=== PATIENT | male | born 1950 | race Caucasian/White ===

== ENCOUNTER 2017-01-16 18:46 | Inpatient (IN) ==
[2017-01-16] MEDS ORDERED: Ipratropium/Albuterol Neb 3 ML IH ONE (18:51)
[2017-01-16] MEDS ORDERED: methylPREDNISolone 125 MG/2 ML VIAL IVP ONE (18:51)
[2017-01-16] MEDS ORDERED: 0.9 % Sodium Chloride 1,000 ML IVC ONE (18:59)
[2017-01-16] MEDS ORDERED: Acetaminophen 650 MG RECTAL SUPP RC ONE (19:11)
--- NOTE | 2017-01-16 19:12 | Emergency Department Note ---
Disposition Clinical Impression: Leukocytosis, Elevated troponin, Hypomagnesemia Pneumonia Qualifiers: Pneumonia type: due to unspecified organism Laterality: bilateral Lung location : lower lobe of lung Qualified Code(s): J18.9 - Pneumonia, unspecified organism Sepsis Qualifiers: Sepsis type: sepsis due to unspecified organism Qualified Code(s): A41.9 - Sepsis, unspecified organism Disposition: Admitted As Inpatient Condition: Serious Time of Disposition: 20:26 General Adult HPI - General Chief complaint: ED Shortness of Breath/Dyspnea Stated complaint: AMS / ANDERSON Time Seen by Provider: 01/16/17 18:51 Source: EMS Mode of arrival: EMS Limitations: no limitations Nursing Notes Reviewed: Yes Vital Signs Reviewed: Yes - History of Present Illness HPI Narrative: Patient brought in by EMS. He was found down at home by the oxygen delivery service. Patient is unaware of how he fell or why he fell. He just rumors being on the floor. EMS advised that his initial oxygen saturation was 74% on 4 L nasal cannula. They placed him on a nonrebreather and this increased his oxygen saturation to the low 90s. Pain Scale: 0 - Related Data Home Medications Medication Instructions Recorded Confirmed Acetaminophen [Tylenol] 1,000 mg PO TID PRN 01/16/17 01/16/17 Albuterol Sulfate [Albuterol 2 puff IH QID PRN 01/16/17 01/16/17 Inhaler] Aloe Vera/Collagen [Aloe [place] 1 appl TP DAILY 01/16/17 01/16/17 Cleansing Foam] Ascorbate Calcium [Vitamin C] 500 mg PO DAILY 01/16/17 01/16/17 Carboxymethylcellulose Sodium 1 drop BOTH EYES QID 01/16/17 01/16/17 [Refresh Liquigel] Docusate [Colace] 100 mg PO BID 01/16/17 01/16/17 Ferrous Sulfate 325 mg PO BIDWM 01/16/17 01/16/17 Furosemide [Lasix] 40 mg PO DAILY 01/16/17 01/16/17 Gabapentin [Neurontin] 600 mg PO TID 01/16/17 01/16/17 L. Acidophilus/Pectin, Tulsita 1 each PO TIDAC 01/16/17 01/16/17 [Acidophilus Probiotic Capsule] Metoprolol [Lopressor] 50 mg PO BID 01/16/17 01/16/17 Multivitamin [Multi-Day Vitamins] 1 each PO DAILY 01/16/17 01/16/17 Ranitidine HCl [Zantac] 150 mg PO BID 01/16/17 01/16/17 Rivaroxaban [Xarelto] 20 mg PO DAILY 01/16/17 01/16/17 Simvastatin [Zocor] 20 mg PO HS 01/16/17 01/16/17 Sod Chloride/B-6/Zinc Acet/Ca 3 - 5 spray IR DAILY 01/16/17 01/16/17 [Wound Cleanser] Vit C/E/Zn/Coppr/Lutein/Zeaxan 1 cap PO BID 01/16/17 01/16/17 [Preservision Areds 2 Softgel] Allergies Allergy/AdvReac Type Severity Reaction Status Date / Time latex AdvReac See Verified 01/16/17 21:16 Comments Limitations: ROS unobtainable due to patients medical condition Past Medical History - Past Medical History Medical history: Reports: atrial fibrillation, COPD, hyperlipidemia, hypertension, myocardial infarction, other Psychiatric history: Reports: no psych history - Social History Smoking Status: Current every day smoker Smokeless Tobacco Status: No Alcohol use: Reports: none Drug use: Reports: none Physical Exam - General Limitations: altered mental status General appearance: alert, lethargic, in distress (Respiratory. Quickly falls asleep during exam.) - Head Head exam: atraumatic, normocephalic, normal inspection - Eye Eye exam: Present: normal appearance, PERRL, EOMI. Absent: scleral icterus - ENT ENT exam: normal exam, normal oropharynx, mucous membranes moist - Neck Neck exam: Present: normal inspection, full ROM, trachea midline. Absent: tenderness, meningismus, lymphadenopathy - Chest Chest inspection: Present: normal inspection, symmetric chest wall rise. Absent : tenderness - Respiratory Respiratory exam: Present: respiratory distress, wheezes (Expiratory wheezing throughout.) - Cardiovascular Cardiovascular exam: Present: normal rhythm, tachycardia, normal heart sounds - Abdominal Exam Abdominal exam: Present: soft, Non-Tender, other (Colostomy bag intact. Colostomy is pink appearing. Does not appear to have any signs of infection. There is stool in the colostomy bag as well as air. There is a well-healing scar to the suprapubic area. No discharge from this area. The area is not reddened.). Absent: tenderness, distention, guarding, rebound, rigidity - Extremities Exam Extremities exam: Present: normal inspection, full ROM, normal capillary refill. Absent: tenderness, pedal edema - Back Exam Back exam: Present: normal inspection, full ROM. Absent: tenderness - Neurological Exam Neurological exam: Present: alert, other (Confused. Quickly falls asleep while questioning.) - Skin Skin exam: Present: warm, dry, intact, other (Blanching rash across whole body. Appears to be urticaria.). Absent: cyanosis Course Course Narrative: Male patient presenting to the emergency department by EMS for a fall at home and altered level of consciousness. He was discharged today from [facility] today. EMS reports an initial oxygen saturation in the 70s on 4 L via nasal cannula. They placed him on a nonrebreather and this brought him into the low 90s. The patient does have a colostomy bag. He also has a surgical incision site on his lower abdomen that is suprapubic in nature. He was seen at [facility] and treated for a abdominal fistula and possible abdominal infection. The patient is unaware of how he fell at home. He just remembers screaming while he was on the floor. He is maintaining his airway at this time however his oxygen saturation decreases to the high 80s on 4 L via nasal cannula. He does have wheezing and rales throughout. Given him a breathing treatment. We will place the patient on BiPAP. He is tachycardic. We are giving him a fluid bolus at this time however we will withhold the 30 mL/kg due to patient's possibility of CHF. We are obtaining a BNP at this time. On his chest x-ray does appear as if he has some vascular congestion. He also has a bilateral lower lobe pneumonia. We are beginning treatment with triple antibiotic therapy at this time. Labs are still pending. He is mentating and talking to us however does appear to be confused and quickly falls asleep during conversation. We will admit patient for bilateral pneumonia. - Reevaluation(s) Reevaluation #1: Patient is mentating better now that he is on BiPAP however he is still confused. His troponin is elevated. His white count is elevated. We are replacing his magnesium at this time. CT head and neck are still pending. Time: 20:32 Reevaluation #2: CT of head and neck are normal. We will place patient on triple antibiotic therapy for his hospital-acquired pneumonia. We will admit him to the hospital on BiPAP and treat him for pneumonia and sepsis. - Consultations Consultation #1: Dr. Mtz accepted patient in stable condition. Time: 20:32 Vital Signs Temperature 100.6 F H 01/16/17 18:51 Pulse Rate 117 01/16/17 18:51 Respiratory Rate 18 01/16/17 18:51 Blood Pressure 121/67 01/16/17 18:51 O2 Sat by Pulse Oximetry 89 01/16/17 18:51 Temperature 99.2 F 01/16/17 22:35 Pulse Rate 89 01/17/17 00:00 Respiratory Rate 13 01/17/17 00:00 Blood Pressure 119/58 01/17/17 00:00 O2 Sat by Pulse Oximetry 97 01/17/17 00:00 Oxygen Delivery Oxygen Delivery Non Rebreather Mask Medical Decision Making - MDM Narrative Medical decision making narrative: Patient's BNP is elevated and his chest x-ray does have appearance of a possible edema. We will withhold full fluid bolus due to this. - Medical Records Medical records reviewed: Yes I reviewed the patient's medical records. - Lab Data Lab results reviewed: Yes I reviewed the patient's lab results. Result diagrams: 01/16/17 19:27 01/16/17 19:27 Lab Results 01/16/17 01/16/17 01/16/17 Range/Units 19:02 19:27 19:27 WBC 18.2 H (4.3-11.1) K/mcL RBC 4.68 (4.19-5.50) M/mcL Hgb 12.8 L D (12.9-16.9) g/dL Hct 40.5 (37.5-50.1) % MCV 86.5 (83.0-100.0) fL MCH 27.4 L (28.0-33.3) pg MCHC 31.6 (31.6-35.5) g/dL RDW 14.7 H (11.5-14.5) % Plt Count 202 (140-400) K/mcL MPV 12.0 (9.4-12.4) fL Immature Gran % 1.5 (0-4) % Seg Neutrophils % 81.1 % Lymphocytes % 6.9 % Monocytes % 7.9 % Eosinophils % 2.4 % Basophils % 0.2 % Neutrophils # 14.8 H (1.6-8.9) K/mcL Lymphocytes # 1.3 (0.6-4.6) K/mcL Monocytes # 1.5 H (0.0-1.3) K/mcL Eosinophils # 0.4 (0.0-0.6) K/mcL Basophils # 0.0 (0.0-0.2) K/mcL VBG pH (7.32-7.42) pH Units VBG pCO2 (41-51) mmHg VBG pO2 (25-40) mmHg VBG HCO3 (21-27) mEq/L Sodium 141 (136-145) mEq/L Potassium 3.8 (3.5-4.5) mEq/L Chloride 100 (98-109) mEq/L Carbon Dioxide 27 (19-29) mEq/L BUN 9 (8-26) mg/dL Creatinine 1.00 (0.72-1.25) mg/dL Est GFR ( Amer) > 60 (> 60) Est GFR (Non-Af Amer) > 60 (> 60) BUN/Creatinine Ratio 9 (6-26) Glucose 127 H (70-99) mg/dL POC Glucose 130 H (58-89) Calculated Osmolality 292 (280-300) Lactic Acid (0.5-2.2) mmol/L Calcium 8.8 (8.6-10.8) mg/dL Phosphorus 1.7 L (2.3-4.7) mg/dL Magnesium 1.1 L (1.6-2.6) mg/dL Total Bilirubin 0.5 (0.2-1.2) mg/dL Direct Bilirubin 0.3 (0.0-0.5) mg/dL Indirect Bilirubin 0.2 (0.0-1.2) mg/dL AST 9 (5-34) Units/L ALT 13 (0-55) Units/L Alkaline Phosphatase 87 (38-126) Units/L Creatine Kinase 14 L (30-200) Units/L Troponin I (0-0.03) ng/mL B-Natriuretic Peptide (0-100) pg/mL Serum Total Protein 6.6 (6.0-8.3) g/dL Albumin 3.0 L (3.5-5.0) g/dL Globulin 3.6 H (2.4-3.5) g/dL Albumin/Globulin Ratio 0.8 L (1.1-2.2) Urine Color (Yellow) Urine Clarity (Clear) Urine pH (5.0-8.0) pH Units Ur Specific Bloom[place] (1.010-1.025) Urine Protein (Neg-Trace) mg/dL Urine Glucose (UA) (Normal) mg/dL Urine Ketones (Negative) mg/dL Urine Blood (Negative) Urine Nitrite (Negative) Urine Bilirubin (Negative) Urine Urobilinogen (Normal) mg/dL Ur Leukocyte Esterase (Negative) Urine Microscopic RBC (0-3) per hpf Urine Microscopic WBC (0-3) per hpf Ur Squamous Epith Cells (None-Few) per lpf Urine Bacteria (None-Few) per hpf Hyaline Casts (None-Few) per lpf Urine Mucus (Few) Ur Culture Indicated? (NO) 01/16/17 01/16/17 01/16/17 Range/Units 19:27 19:27 19:27 WBC (4.3-11.1) K/mcL RBC (4.19-5.50) M/mcL Hgb (12.9-16.9) g/dL Hct (37.5-50.1) % MCV (83.0-100.0) fL MCH (28.0-33.3) pg MCHC (31.6-35.5) g/dL RDW (11.5-14.5) % Plt Count (140-400) K/mcL MPV (9.4-12.4) fL Immature Gran % (0-4) % Seg Neutrophils % % Lymphocytes % % Monocytes % % Eosinophils % % Basophils % % Neutrophils # (1.6-8.9) K/mcL Lymphocytes # (0.6-4.6) K/mcL Monocytes # (0.0-1.3) K/mcL Eosinophils # (0.0-0.6) K/mcL Basophils # (0.0-0.2) K/mcL VBG pH (7.32-7.42) pH Units VBG pCO2 (41-51) mmHg VBG pO2 (25-40) mmHg VBG HCO3 (21-27) mEq/L Sodium (136-145) mEq/L Potassium (3.5-4.5) mEq/L Chloride (98-109) mEq/L Carbon Dioxide (19-29) mEq/L BUN (8-26) mg/dL Creatinine (0.72-1.25) mg/dL Est GFR ( Amer) (> 60) Est GFR (Non-Af Amer) (> 60) BUN/Creatinine Ratio (6-26) Glucose (70-99) mg/dL POC Glucose (58-89) Calculated Osmolality (280-300) Lactic Acid 1.3 (0.5-2.2) mmol/L Calcium (8.6-10.8) mg/dL Phosphorus (2.3-4.7) mg/dL Magnesium (1.6-2.6) mg/dL Total Bilirubin (0.2-1.2) mg/dL Direct Bilirubin (0.0-0.5) mg/dL Indirect Bilirubin (0.0-1.2) mg/dL AST (5-34) Units/L ALT (0-55) Units/L Alkaline Phosphatase (38-126) Units/L Creatine Kinase (30-200) Units/L Troponin I 0.07 H* (0-0.03) ng/mL B-Natriuretic Peptide 797 H (0-100) pg/mL Serum Total Protein (6.0-8.3) g/dL Albumin (3.5-5.0) g/dL Globulin (2.4-3.5) g/dL Albumin/Globulin Ratio (1.1-2.2) Urine Color (Yellow) Urine Clarity (Clear) Urine pH (5.0-8.0) pH Units Ur Specific Bloom[place] (1.010-1.025) Urine Protein (Neg-Trace) mg/dL Urine Glucose (UA) (Normal) mg/dL Urine Ketones (Negative) mg/dL Urine Blood (Negative) Urine Nitrite (Negative) Urine Bilirubin (Negative) Urine Urobilinogen (Normal) mg/dL Ur Leukocyte Esterase (Negative) Urine Microscopic RBC (0-3) per hpf Urine Microscopic WBC (0-3) per hpf Ur Squamous Epith Cells (None-Few) per lpf Urine Bacteria (None-Few) per hpf Hyaline Casts (None-Few) per lpf Urine Mucus (Few) Ur Culture Indicated? (NO) 01/16/17 01/16/17 01/16/17 Range/Units 19:27 20:50 22:38 WBC (4.3-11.1) K/mcL RBC (4.19-5.50) M/mcL Hgb (12.9-16.9) g/dL Hct (37.5-50.1) % MCV (83.0-100.0) fL MCH (28.0-33.3) pg MCHC (31.6-35.5) g/dL RDW (11.5-14.5) % Plt Count (140-400) K/mcL MPV (9.4-12.4) fL Immature Gran % (0-4) % Seg Neutrophils % % Lymphocytes % % Monocytes % % Eosinophils % % Basophils % % Neutrophils # (1.6-8.9) K/mcL Lymphocytes # (0.6-4.6) K/mcL Monocytes # (0.0-1.3) K/mcL Eosinophils # (0.0-0.6) K/mcL Basophils # (0.0-0.2) K/mcL VBG pH 7.42 (7.32-7.42) pH Units VBG pCO2 54 H (41-51) mmHg VBG pO2 43 H (25-40) mmHg VBG HCO3 35.0 H (21-27) mEq/L Sodium (136-145) mEq/L Potassium (3.5-4.5) mEq/L Chloride (98-109) mEq/L Carbon Dioxide (19-29) mEq/L BUN (8-26) mg/dL Creatinine (0.72-1.25) mg/dL Est GFR ( Amer) (> 60) Est GFR (Non-Af Amer) (> 60) BUN/Creatinine Ratio (6-26) Glucose (70-99) mg/dL POC Glucose 251 H (58-89) Calculated Osmolality (280-300) Lactic Acid (0.5-2.2) mmol/L Calcium (8.6-10.8) mg/dL Phosphorus (2.3-4.7) mg/dL Magnesium (1.6-2.6) mg/dL Total Bilirubin (0.2-1.2) mg/dL Direct Bilirubin (0.0-0.5) mg/dL Indirect Bilirubin (0.0-1.2) mg/dL AST (5-34) Units/L ALT (0-55) Units/L Alkaline Phosphatase (38-126) Units/L Creatine Kinase (30-200) Units/L Troponin I (0-0.03) ng/mL B-Natriuretic Peptide (0-100) pg/mL Serum Total Protein (6.0-8.3) g/dL Albumin (3.5-5.0) g/dL Globulin (2.4-3.5) g/dL Albumin/Globulin Ratio (1.1-2.2) Urine Color Yellow (Yellow) Urine Clarity Slightly Hazy (Clear) Urine pH 5.5 (5.0-8.0) pH Units Ur Specific Bloom[place] 1.017 (1.010-1.025) Urine Protein 30 H (Neg-Trace) mg/dL Urine Glucose (UA) Normal (Normal) mg/dL Urine Ketones Trace H (Negative) mg/dL Urine Blood Negative (Negative) Urine Nitrite Negative (Negative) Urine Bilirubin Negative (Negative) Urine Urobilinogen Normal (Normal) mg/dL Ur Leukocyte Esterase Negative (Negative) Urine Microscopic RBC 0-3 (0-3) per hpf Urine Microscopic WBC 0-3 (0-3) per hpf Ur Squamous Epith Cells Moderate H (None-Few) per lpf Urine Bacteria None Seen (None-Few) per hpf Hyaline Casts None Seen (None-Few) per lpf Urine Mucus Few (Few) Ur Culture Indicated? NO (NO) - Radiology Data Radiology results reviewed: Yes I reviewed the patient's radiology results. Chest X-Ray 01/16/17 18:51 IMPRESSION: Bilateral lower lobe infiltrates could represent pneumonia D/ / Say Veras MD / Say Veras MD Interpreting Provider: Say Veras MD Cervical Spine CT 01/16/17 18:55 IMPRESSION: No acute abnormality of the cervical spine. Right pleural effusion with right upper lung dependent airspace disease, probably atelectasis. Interlobular septal thickening within the apices is suggestive possible mild interstitial edema. D/ / Michelle Reyna Cha, MD / Michelle Reyna Cha, MD Interpreting Provider: Michelle Reyna Cha, MD Head CT 01/16/17 18:55 IMPRESSION: No acute intracranial abnormality. D/ / Jimenez Manzo / Jimenez Manzo Interpreting Provider: Jimenez Manzo - EKG Data EKG #1 EKG results narrative: EKG was interpreted by myself without benefit of for cardiology interpretation showing a sinus tachycardia at 117 bpm, left atrial enlargement, incomplete right bundle-branch block, T-wave abnormalities in the anterolateral leads, this was compared to prior EKG from 01/10/2017 and there is no significant change from prior EKG. Critical Care Time Critical Care Time: Yes Total Critical Care Time: 60 Attestation: The high probability of a clinically significant, sudden or life threatening deterioration of the [resp] system(s) required my full and direct attention, intervention and personal management. The aggregate critical care time was [60] minutes. This time is in addition to time spent performing reported procedures but includes the following: [X] Data Review and interpretation [X] Patient assessment and monitoring of vital signs [X] Documentation [X] Medication orders and management Attestation Statement - Attestation Attestation: I personally interviewed and examined this patient and my medical decision- making was reviewed with the ED Resident Physician, Dr. Velasco I agree with the documented findings, disposition and treatment plan as described except to the extent set forth below. Patient is a 66-year-old white male who presented to the emergency department by EMS in respiratory distress. Patient was just discharged from [facility] at 1 :30 this afternoon after having an abdominal fistula repair. Patient shortly after arriving home complained of gradually worsening shortness of breath and sustained a fall with questionable syncope. Patient was found on the floor by the oxygen delivery crew worker, who called 911. Medics state that when the patient was found he was hypoxic on room air at 73-74%. Patient was placed on a nonrebreather and on arrival to the ED sats were around 90%. Patient was to tachypneic, tachycardic, and febrile. Patient was transitioned to 6 L nasal cannula and aerosols were initiated by respiratory. Patient had an IV in the left antecubital was placed on litigation examiner and pulse ox. IV fluids were initiated. Patient was verbally answering questions but would fall asleep before finishing a sentence. He was easily arousable by voice. He was complaining of shortness of breath but denies any chest pain pressure or heaviness, no abdominal pain, no nausea vomiting, no bowel changes, patient denies recalling if he fell or what contributed to his fall at home. Patient had no obvious injuries visible on secondary survey. Patient does have what looks like diffuse urticaria noted to the skin, no appreciable facial swelling, no perioral edema, no tongue swelling, no stridor. Patient with obvious colostomy site to the right mid abdomen with brown stool, and dressing to midline abdomen. I agree with patient's physical exam findings as documented. Patient was treated aggressively with IV steroids IV Benadryl as well as serial aerosols for expiratory wheezing on auscultation. Patient was placed on 6 L nasal cannula oxygen and did have improvement following aerosols and O2 sats were 93-94%. Chest x-ray showed a bilateral pneumonia. Patient has an elevated white count with left shift, fever on arrival tachycardia and respiratory distress. We obtained blood cultures and started empiric antibiotics for hospital-acquired pneumonia. Patient was placed on BiPAP preemptively to improve her respiratory function. Remaining labs show a low magnesium which we initiated replacement in the ED. Patient improved clinically on BiPAP. Patient was sent for CT head and C-spine due to reported fall with unclear etiology. CT head and neck were unremarkable. Patient's troponin came back mildly elevated at 0.07. Patient continues to deny any active chest pain at this time. There was no evidence of CHF on chest x-ray. An patient has no significant change on his EKG compared to prior. At this time we spoke to the hospitalist, Dr. Peñaloza who accepted the patient for admission. We are treating the patient at this time for possible early sepsis although blood pressure has remained stable throughout. Patient's part first lactate was 1.3. Cultures and antibiotics of been initiated. Also relayed positive troponin and otherwise unremarkable workup to this point. Patient is clinically improved at this time on BiPAP and will be admitted to the ICU.
[2017-01-16] MEDS ORDERED: Acetaminophen 325 MG TABLET PO ONE (19:24)
[2017-01-16] MEDS ORDERED: Levofloxacin 750 MG/150 ML 750 MG/150 ML BAG IVPB ONE (19:27)
[2017-01-16] MEDS ORDERED: Piperacillin/Tazobactam 3.375 GM in D5% in Water (Mini-Bag+) 100 ML IVPB ONE (19:27)
[2017-01-16] MEDS ORDERED: Vancomycin 1,750 MG in D5% in Water 250 ML IVPB ONE (19:27)
[2017-01-16 19:40] LABS: Basophils % 0.2 %; Eosinophils # 0.4 K/mcL (0.0-0.6); Eosinophils % 2.4 %; Hematocrit 40.5 % (37.5-50.1); Immature Granulocytes % 1.5 % (0-4); Lymphocytes # 1.3 K/mcL (0.6-4.6); Lymphocytes % 6.9 %; Mean Corpuscular HGB Conc 31.6 g/dL (31.6-35.5); Mean Corpuscular Hemoglobin 27.4 pg (28.0-33.3); Mean Corpuscular Volume 86.5 fL (83.0-100.0); Monocytes # 1.5 K/mcL (0.0-1.3); Monocytes % 7.9 %; Neutrophils # 14.8 K/mcL (1.6-8.9); Platelet Count 202 K/mcL (140-400); Red Blood Count 4.68 M/mcL (4.19-5.50); Red Cell Distribution Width 14.7 % (11.5-14.5); Segmented Neutrophils % 81.1 %
[2017-01-16 19:41] LABS: Hemoglobin 12.8 g/dL (12.9-16.9)
[2017-01-16 19:45] LABS: VBG PH 7.42 pH Units (7.32-7.42)
[2017-01-16 19:55] LABS: Alanine Aminotransferase 13 Units/L (0-55); Albumin/Globulin Ratio 0.8 (1.1-2.2); Alkaline Phosphatase 87 Units/L (38-126); Aspartate Amino Transferase 9 Units/L (5-34); Bilirubin,Direct 0.3 mg/dL (0.0-0.5); Bilirubin,Indirect 0.2 mg/dL (0.0-1.2); Bilirubin,Total 0.5 mg/dL (0.2-1.2); Creatine Kinase 14 Units/L (30-200); Globulin 3.6 g/dL (2.4-3.5); Magnesium 1.1 mg/dL (1.6-2.6); Phosphorous 1.7 mg/dL (2.3-4.7); Total Protein 6.6 g/dL (6.0-8.3)
[2017-01-16] MEDS ORDERED: Vancomycin 1,750 MG in D5% in Water 500 ML IVPB ONE (20:00)
[2017-01-16 20:11] LABS: BUN/Creatinine Ratio 9 (6-26); Blood Urea Nitrogen 9 mg/dL (8-26); Calcium 8.8 mg/dL (8.6-10.8); Carbon Dioxide 27 mEq/L (19-29); Chloride 100 mEq/L (98-109); Glucose 127 mg/dL (70-99); Osmolality,Calculated 292 (280-300); Potassium 3.8 mEq/L (3.5-4.5); Sodium 141 mEq/L (136-145); eGFR For African Americans > 60 (> 60); eGFR For Non-African Americans > 60 (> 60)
[2017-01-16] MEDS ORDERED: Magnesium Sulfate 1 GM in D5% in Water 100 ML IVPB ONE (20:14)
[2017-01-16] MEDS ORDERED: Naloxone 0.4 MG/ML INJ IVP PRN (20:43)
[2017-01-16 20:59] LABS: Bilirubin,Urine Negative (Negative); Blood,Urine Negative (Negative); Color,Urine Yellow (Yellow); Glucose,Urine (UA) Normal (Normal); Ketones,Urine Trace mg/dL (Negative); Leukocyte Esterase,Urine Negative (Negative); Nitrite,Urine Negative (Negative); PH,Urine 5.5 pH Units (5.0-8.0); Protein,Urine 30 mg/dL (Neg-Trace); Specific Gravity,Urine 1.017 (1.010-1.025); Urobilinogen,Urine Normal (Normal)
[2017-01-16 21:02] LABS: Bacteria,Urine None Seen per hpf (None-Few); RBC,Urine 0-3 per hpf (0-3); Squamous Epithelial Cell,Urine Moderate per lpf (None-Few); WBC,Urine 0-3 per hpf (0-3)
[2017-01-16 21:06] LABS: Clarity,Urine Slightly Hazy (Clear)
[2017-01-16 21:16] LABS: Hyaline Casts,Urine None Seen per lpf (None-Few); Mucus,Urine Few (Few)
--- NOTE | 2017-01-16 21:42 | Internal Med History&Physical ---
Date of Encounter: 01/16/17 Time of Encounter: 21:00 Assessment and Plan (1) Sepsis Current visit: Yes Status: Acute Patient has a temperature of 100.6 degrees Fahrenheit, tachycardia and tachypnea. Patient has worsening shortness of breath than his baseline. Exam reveals bilateral diffuse wheezing and left lower lobe crepitations. Patient most likely has pneumonia. He will be admitted to inpatient status. High risk due to risk of worsening respiratory failure and risk of septic shock. Intravenous broad-spectrum antibiotics to cover MRSA, Pseudomonas and multidrug resistant Escherichia coli that can cause healthcare associated pneumonia. Patient appears to have CHF. Hence, he will not be given aggressive fluid resuscitation. Expected to be in the hospital for at least 2 midnights. Expected discharge disposition is to home. Qualifiers: Sepsis type: sepsis due to unspecified organism Qualified Code(s): A41.9 - Sepsis, unspecified organism (2) Pneumonia Current visit: Yes Status: Acute As mentioned above, patient is at risk of MRSA, Pseudomonas and multidrug resistant Escherichia coli Broad-spectrum antibacterial therapy. Urine streptococcal and legionella antigens. Sputum cultures. Blood cultures have been obtained. Breathing treatments. Qualifiers: Pneumonia type: due to unspecified organism Laterality: bilateral Lung location: lower lobe of lung Qualified Code(s): J18.9 - Pneumonia, unspecified organism (3) Respiratory failure Current visit: Yes Status: Acute Patient does not use oxygen at home. Currently, he is requiring nonrebreather to maintain his saturations. Respiratory failure due to combination of pneumonia, sepsis and possible new onset CHF. Qualifiers: Chronicity: acute Respiratory failure complication: hypoxia Qualified Code(s): J96.01 - Acute respiratory failure with hypoxia (4) Hypophosphatemia Current visit: Yes Status: Acute Will replace by mouth. Monitor levels. (5) HTN (hypertension) Current visit: Yes Status: Chronic Stable. Hold off antihypertensives for now. Qualifiers: Hypertension type: essential hypertension Qualified Code(s): I10 - Essential (primary) hypertension (6) Hypomagnesemia Current visit: Yes Status: Acute Replaced in the emergency room. Recheck level in the morning. (7) Fistula Current visit: Yes Status: Chronic Patient requesting surgery consult by Dr. Jung. Will consult in the morning. Will obtain records from [place] regarding the same (8) CHF (congestive heart failure) Current visit: Yes Status: Suspected Suspected CHF as the patient has pedal edema, shortness of breath and wheezing and crepitations on exam. CT scan of the cervical spine reveals interstitial edema and pleural effusion. Patient will be given a single dose of 60 mg intravenous Lasix. Will follow his response and consider further diuresis. Will obtain echocardiogram. His troponin elevation could be related to sepsis versus non-STEMI. We will cycle his troponins. Qualifiers: Congestive heart failure type: unspecified congestive heart failure type Congestive heart failure chronicity: acute Qualified Code(s): I50.9 - Heart failure, unspecified Internal Medicine - H&P: HPI Chief complaint: Fall; altered mental status Admitted From: Emergency Dept Plans for Post Hospital Care: Home History of present illness: Mr. Wolf is a 66 year old male who was brought to the emergency department by EMS after he was found down in his home. Apparently the patient was discharged from [facility] in [place] today morning to his home. The patient states that the only thing he remembers is getting out of the cab. Information was obtained from the patient and from review of medical records and discussion with the ER physician. The patient was found on the floor by a home oxygen therapy who went into the patient's home. They called EMS. The patient was found to have saturation of 70s on room air. He was placed on 4 L nasal cannula which brought his saturations up to 90s. He was brought to the emergency department. In the emergency room, the patient was confused and was found to have an urticarial rash all over his body. He was placed on nonrebreather and subsequently on BiPAP with improvement in his saturations. He was also given intravenous steroids and Benadryl for his rash with partial resolution. His mental status apparently improved after he was placed on BiPAP therapy. When I evaluated the patient, the patient is oriented to time, place and person. He is able to answer questions. He reported to me that the last thing he remembered was getting out of the cab after he left the [facility]. He reports shortness of breath which is worse than his baseline. He states that he has baseline shortness of breath due to COPD. He reports cough with yellowish sputum production. He reports that he usually brings up white to yellow sputum. He denies any change in the consistency or amount of sputum. He denies any fever or chills. He was noted to have a temperature of 100.6 degrees Fahrenheit in the emergency department. He denies any chest pain or chest tightness. He reports some wheezing. He denies any lightheadedness. He reports 8/10 pain in the lower abdomen in the middle without any radiation that has been constant for many months. He reports that this is due to his fistula. He states that the fistula was the reason he was transferred to [place]. However, he states that he was given antibiotics at [facility] and did not undergo any surgical intervention. He is requesting to be seen by Dr. Jung during the current admission regarding his abdominal fistula. He denies any nausea, vomiting, diarrhea or constipation. He does have a colostomy bag in place. He denies any urinary symptoms. He reports chronic swelling in his legs. He denies having the rash all over his body when he left [place] today morning. Past Med Surg Social Fam HX - Past Medical History Attestation: Yes The following information was validated with the patient. Source: patient Medical history: atrial fibrillation, COPD, hyperlipidemia, hypertension, other Psychiatric history: no psych history - Past Surgical History Surgical History: colostomy - Social History Smoking Status: Current every day smoker Packs per day: 2 Smokeless Tobacco Status: No Alcohol use: none Drug use: none Current living situation: Home - Independent Activity Level: Wheelchair bound Recent Out of Country Travel Within the Last 8 Weeks: No Exposure or Possible Exposure to Illness During Travel: No - Additional Family History Additional family history: Reviewed; not pertinent Internal Medicine - H&P: Meds Acetaminophen [Tylenol] 1,000 mg PO TID PRN 01/16/17 [History] Albuterol Sulfate [Albuterol Inhaler] 2 puff IH QID PRN 01/16/17 [History] Aloe Vera/Collagen [Aloe [place] Cleansing Foam] 1 appl TP DAILY 01/16/17 [History ] Ascorbate Calcium [Vitamin C] 500 mg PO DAILY 01/16/17 [History] Carboxymethylcellulose Sodium [Refresh Liquigel] 1 drop BOTH EYES QID 01/16/17 [ History] Docusate [Colace] 100 mg PO BID 01/16/17 [History] Ferrous Sulfate 325 mg PO BIDWM 01/16/17 [History] Furosemide [Lasix] 40 mg PO DAILY 01/16/17 [History] Gabapentin [Neurontin] 600 mg PO TID 01/16/17 [History] L. Acidophilus/Pectin, [place] [Acidophilus Probiotic Capsule] 1 each PO TIDAC [History] Metoprolol [Lopressor] 50 mg PO BID 01/16/17 [History] Multivitamin [Multi-Day Vitamins] 1 each PO DAILY 01/16/17 [History] Ranitidine HCl [Zantac] 150 mg PO BID 01/16/17 [History] Rivaroxaban [Xarelto] 20 mg PO DAILY 01/16/17 [History] Simvastatin [Zocor] 20 mg PO HS 01/16/17 [History] Sod Chloride/B-6/Zinc Acet/Ca [Wound Cleanser] 3 - 5 spray IR DAILY 01/16/17 [ History] Vit C/E/Zn/Coppr/Lutein/Zeaxan [Preservision Areds 2 Softgel] 1 cap PO BID 01/16 [History] Allergies latex Adverse Reaction (Verified 01/16/17 21:16) See Comments per va list All Systems PM: A 10-system review of systems was performed and is negative for pertinent findings except as documented above in the HPI. Review of systems: 10 systems have been reviewed and are negative except as mentioned in the history of present illness - Constitutional Vitals: Temp Pulse Resp BP Pulse Ox 100.6 F H 111 18 114/60 94 01/16/17 18:51 01/16/17 21:03 01/16/17 21:03 01/16/17 21:03 01/16/17 21:03 Exam: Gen.: Lying in bed. Moderate to severe distress. On nonrebreather. Eyes: Pupils equal, round and reactive to light. Extraocular muscles intact. ENT: Moist mucous membranes. No oropharyngeal erythema or discharge. Chest: Bilateral diffuse wheezing present. Left lower lobe crepitations present. CVS: First and second heart sounds present. No murmurs, rubs or gallops. Tachycardia present. Abdomen: Soft, nontender, obese. Bowel sounds present. Colostomy bag filled with stool. Skin: No decubitus ulcers appreciated. Stage III ulcer of 2 x 2 cm inferior to the hypogastric region without any purulent discharge or surrounding erythema. Diffuse blanchable urticarial rash all over the body especially prominent over the back. [employer]OR: No focal neuro deficits present. Psychiatric: Alert, awake and oriented to time, place and person. Lymphatic system: No lymphadenopathy appreciated Internal Med - H&P Results - Labs CBC & Chem 7: 01/16/17 19:27 01/16/17 19:27 Labs: Short CBC 01/16/17 Range/Units 19:27 WBC 18.2 H (4.3-11.1) K/mcL Hgb 12.8 L D (12.9-16.9) g/dL Hct 40.5 (37.5-50.1) % Plt Count 202 (140-400) K/mcL Neutrophils # 14.8 H (1.6-8.9) K/mcL BMP 01/16/17 19:27 Sodium 141 Potassium 3.8 Chloride 100 Carbon Dioxide 27 BUN 9 Creatinine 1.00 Glucose 127 H Calcium 8.8 Cardiac Enzymes 01/16/17 Range/Units 19:27 Troponin I 0.07 H* (0-0.03) ng/mL Liver Function 01/16/17 Range/Units 19:27 Total Bilirubin 0.5 (0.2-1.2) mg/dL Direct Bilirubin 0.3 (0.0-0.5) mg/dL AST 9 (5-34) Units/L ALT 13 (0-55) Units/L Alkaline Phosphatase 87 (38-126) Units/L Albumin 3.0 L (3.5-5.0) g/dL Urine 01/16/17 Range/Units 20:50 Urine Color Yellow (Yellow) Urine Clarity Slightly Hazy (Clear) Urine pH 5.5 (5.0-8.0) pH Units Ur Specific [place] 1.017 (1.010-1.025) Urine Protein 30 H (Neg-Trace) mg/dL Urine Glucose (UA) Normal (Normal) mg/dL - ABG Interpretation ABG results: 01/16/17 19:27 VBG pH 7.42 VBG pCO2 54 H VBG pO2 43 H VBG HCO3 35.0 H - EKG Data -: EKG Interpreted by Myself EKG shows normal: sinus rhythm, ST-T waves (T-wave inversions in inferior leads and lateral leads) Rate: tachycardia - EKG Data Prior EKG available for review: yes When compared to previous EKG: there is no significant change - Impressions ITS Impressions Chest X-Ray 01/16/17 18:51 IMPRESSION: Bilateral lower lobe infiltrates could represent pneumonia D/ / Say Veras MD / Say Veras MD Interpreting Provider: Say Veras MD Cervical Spine CT 01/16/17 18:55 IMPRESSION: No acute abnormality of the cervical spine. Right pleural effusion with right upper lung dependent airspace disease, probably atelectasis. Interlobular septal thickening within the apices is suggestive possible mild interstitial edema. D/ / Michelle Reyna Cha, MD / Michelle Reyna Cha, MD Interpreting Provider: Michelle Reyna Cha, MD Head CT 01/16/17 18:55 IMPRESSION: No acute intracranial abnormality. D/ / Jimenez Manzo / Jimenez Manzo Interpreting Provider: Jimenez Manzo - Diagnostic Studies Chest x-ray Status: image reviewed by me (Bilateral lower lobe infiltrates)
[2017-01-16] MEDS ORDERED: Furosemide 60 MG in 0.9 % Sodium Chloride 50 ML IVPB ONE (21:44)
[2017-01-16] MEDS ORDERED: Vancomycin 1,750 MG in D5% in Water 250 ML IVPB SCH (22:00)
[2017-01-16] MEDS: Ipratropium/Albuterol Neb 3 ML IH SCH (22:53)
[2017-01-16] MEDS: *HR* Heparin 5,000 UNIT/ML VIAL SQ SCH (23:48)
[2017-01-17] MEDS ORDERED: Furosemide 40 MG/4 ML VIAL IVP ONE (00:11)
[2017-01-17] MEDS: traMADol 50 MG TABLET PO PRN ×2 (00:12→11:34)
[2017-01-17 01:34] LABS: Basophils % 0.2 %; Eosinophils # 0.1 K/mcL (0.0-0.6); Eosinophils % 0.5 %; Hematocrit 37.7 % (37.5-50.1); Hemoglobin 12.1 g/dL (12.9-16.9); Immature Granulocytes % 0.9 % (0-4); Lymphocytes # 0.7 K/mcL (0.6-4.6); Lymphocytes % 4.5 %; Mean Corpuscular HGB Conc 32.1 g/dL (31.6-35.5); Mean Corpuscular Volume 87.3 fL (83.0-100.0); Mean Platelet Volume 12.2 fL (9.4-12.4); Monocytes # 0.3 K/mcL (0.0-1.3); Monocytes % 1.9 %; Neutrophils # 13.9 K/mcL (1.6-8.9); Platelet Count 196 K/mcL (140-400); Red Blood Count 4.32 M/mcL (4.19-5.50); Red Cell Distribution Width 14.7 % (11.5-14.5)
[2017-01-17 01:52] LABS: Magnesium 1.3 mg/dL (1.6-2.6)
[2017-01-17 01:53] LABS: Phosphorous 2.9 mg/dL (2.3-4.7)
[2017-01-17 01:55] LABS: Alanine Aminotransferase 11 Units/L (0-55); Albumin 2.7 g/dL (3.5-5.0); Albumin/Globulin Ratio 0.7 (1.1-2.2); Alkaline Phosphatase 79 Units/L (38-126); Aspartate Amino Transferase 7 Units/L (5-34); BUN/Creatinine Ratio 8 (6-26); Bilirubin,Total 0.3 mg/dL (0.2-1.2); Blood Urea Nitrogen 8 mg/dL (8-26); Calcium 8.3 mg/dL (8.6-10.8); Carbon Dioxide 30 mEq/L (19-29); Chloride 101 mEq/L (98-109); Globulin 3.7 g/dL (2.4-3.5); Glucose 241 mg/dL (70-99); Osmolality,Calculated 298 (280-300); Potassium 3.7 mEq/L (3.5-4.5); Sodium 141 mEq/L (136-145); Total Protein 6.4 g/dL (6.0-8.3); eGFR For African Americans > 60 (> 60); eGFR For Non-African Americans > 60 (> 60)
[2017-01-17] MEDS: Ipratropium/Albuterol Neb 3 ML IH SCH ×4 (04:09→22:08)
[2017-01-17] MEDS ORDERED: Magnesium Sulfate 1 GM in D5% in Water 100 ML IVPB ONE (04:15)
[2017-01-17] MEDS: Piperacillin/Tazobactam 3.375 GM in D5% in Water (Mini-Bag+) 100 ML IVPB SCH ×3 (04:40→20:39)
[2017-01-17] MEDS: Aspirin Enteric Coated 81 MG Tablet PO SCH (08:01)
[2017-01-17] MEDS: *HR* Heparin 5,000 UNIT/ML VIAL SQ SCH ×2 (08:01→16:42)
[2017-01-17] MEDS: Lactobacillus 1 EACH CAP.SPRINK PO SCH ×2 (08:01→20:40)
[2017-01-17] MEDS ORDERED: Vancomycin 1,250 MG in D5% in Water 250 ML IVPB SCH (12:00)
--- NOTE | 2017-01-17 13:24 | Internal Med Progress Note ---
Date of Encounter: 01/17/17 Time of Encounter: 13:22 - Assessment and plan (1) Sepsis Current Visit: Yes Status: Acute Assessment and plan: Hypoxic hypercapninc acute respiratory failure due to sepsis secondary to healthcare Associated pneumonia present upon admission Chest x-ray shows bilateral pneumonia in both bases sat in the 70s continue Zosyn, Levaquin day 2, discontinue vancomycin, the patient's blood pressures are stable Blood cultures Qualifiers: Sepsis type: sepsis due to unspecified organism Qualified Code(s): A41.9 - Sepsis, unspecified organism (2) Healthcare-associated pneumonia Current Visit: Yes Status: Acute (3) Fistula Current Visit: Yes Status: Chronic Assessment and plan: follow with Dr Jung as outpatient. Was discharged from [facility] , was given antibiotics and had minimal debridement of the surrounding tissue of the fistula (4) Elevated troponin Current Visit: Yes Status: Acute Assessment and plan: Likely secondary to demand ischemia Continue aspirin (5) Hypomagnesemia Current Visit: Yes Status: Acute Assessment and plan: replete (6) HTN (hypertension) Current Visit: Yes Status: Chronic Qualifiers: Hypertension type: essential hypertension Qualified Code(s): I10 - Essential (primary) hypertension (7) Respiratory failure Current Visit: Yes Status: Acute Qualifiers: Chronicity: acute Respiratory failure complication: hypoxia Qualified Code(s): J96.01 - Acute respiratory failure with hypoxia (8) CHF (congestive heart failure) Current Visit: Yes Status: Suspected Assessment and plan: no exacerbation Echocardiogram showed ejection fraction of 55% with moderate diastolic dysfunction Qualifiers: Congestive heart failure type: diastolic Congestive heart failure chronicity: acute Qualified Code(s): I50.31 - Acute diastolic (congestive) heart failure - Subjective Interval history: the patient feels still short of breath, denies any fevers, complains of mild abdominal pain where he has his fistula. No dysuria no headaches, bringing up yellowish phlegm at times - Constitutional Vitals: Temp Pulse Resp BP Pulse Ox 97.8 F 70 18 141/69 90 01/17/17 11:55 01/17/17 12:11 01/17/17 12:11 01/17/17 12:11 01/17/17 12:11 General appearance: Present: A&O X 3 - Head Head exam: Present: atraumatic, normocephalic - Eye Eye exam: Present: PERRL, conjuntiva pink, sclera anicteric Pupils: Present: PERRL - Neck Neck exam general surgery: Present: supple, trachea midline. Absent: lymphadenopathy - Respiratory Respiratory exam: Present: CTAB, rales (bibasilar crackles, no wheezing). Absent: accessory muscle use, rhonchi, wheezes - Cardiovascular Cardiovascular exam: Present: RRR, +S1, +S2. Absent: diastolic murmur, gallop, rubs, systolic murmur - GI/Abdominal GI/Abdominal exam: Present: distended (colostomy in the right hemiabdomen, others protrusion/prolapse of part of the colon), normal bowel sounds, soft, no peritoneal signs. Absent: tenderness - Extremities Exam Extremities exam: Present: warm, radial pulses palpable and symetrical. Absent : calf tenderness, cyanotic, pedal edema - Neurological Exam Neurological exam: Present: CN II-XII intact, oriented X3, no focal deficits. Absent: pronater drift, facial droop, speech deficit - Skin Skin exam: Present: dry. Absent: intact (lower abdominal fistula without surrounding erythemaor increased straining) Internal Medicine: Result - Labs CBC & Chem 7: 01/17/17 01:21 01/17/17 01:21 Labs: Short CBC 01/17/17 Range/Units 01:21 WBC 15.1 H (4.3-11.1) K/mcL Hgb 12.1 L (12.9-16.9) g/dL Hct 37.7 (37.5-50.1) % Plt Count 196 (140-400) K/mcL Neutrophils # 13.9 H (1.6-8.9) K/mcL BMP 01/17/17 01:21 Sodium 141 Potassium 3.7 Chloride 101 Carbon Dioxide 30 H BUN 8 Creatinine 1.01 Glucose 241 H Calcium 8.3 L Cardiac Enzymes 01/17/17 01/17/17 Range/Units 01:21 04:57 Troponin I 0.09 H* 0.06 H* (0-0.03) ng/mL Liver Function 01/17/17 Range/Units 01:21 Total Bilirubin 0.3 (0.2-1.2) mg/dL AST 7 (5-34) Units/L ALT 11 (0-55) Units/L Alkaline Phosphatase 79 (38-126) Units/L Albumin 2.7 L (3.5-5.0) g/dL Consult Discharge Plan - Plan Referrals: NO,PCP [Primary Care Provider] -
[2017-01-17] MEDS: Magnesium Oxide 400 MG TABLET PO SCH ×2 (14:15→20:41)
[2017-01-17] MEDS: Ondansetron 4 MG/2 ML VIAL IVP PRN (15:20)
[2017-01-17] MEDS: Acetaminophen 325 MG TABLET PO PRN (15:20)
--- NOTE | 2017-01-17 18:00 | Electrocardiograph Report ---
[address] [place], [place] [address] Test Date: 2017-01-16 Pat Name: Bobby Wolf Department: 102 Room: 12 Gender: M Background Check Coordinator: Ekp : 1950 Requested By: Yesenia Velasco Order Number: [id number] Reading MD: Edgar Harrington MD Measurements Intervals [place] Rate: 117 P: 71 VT: 145 QRS: 70 QRSD: 93 T: -6 QT: 340 QTc: 410 Interpretive Statements SINUS TACHYCARDIA LEFT ATRIAL ENLARGEMENT INDETERMINATE AXIS INCOMPLETE RIGHT BUNDLE BRANCH BLOCK BASELINE ARTIFACT COMPLICATES ACCURATE INTERPRETATION Electronically Signed On 01-17-2017 17:58:20 EDT by Edgar Harrington MD
[2017-01-17] MEDS: levoFLOXacin 500 MG TABLET PO SCH (20:40)
[2017-01-18] MEDS: *HR* Heparin 5,000 UNIT/ML VIAL SQ SCH ×4 (01:30→23:48)
[2017-01-18] MEDS: traMADol 50 MG TABLET PO PRN ×2 (01:30→21:36)
[2017-01-18 04:29] LABS: Hemoglobin 12.4 g/dL (12.9-16.9); Mean Corpuscular HGB Conc 32.6 g/dL (31.6-35.5); Mean Corpuscular Hemoglobin 27.9 pg (28.0-33.3); Mean Corpuscular Volume 85.6 fL (83.0-100.0); Mean Platelet Volume 12.3 fL (9.4-12.4); Platelet Count 213 K/mcL (140-400); Red Blood Count 4.44 M/mcL (4.19-5.50); Red Cell Distribution Width 14.5 % (11.5-14.5)
[2017-01-18 04:47] LABS: BUN/Creatinine Ratio 16 (6-26); Blood Urea Nitrogen 14 mg/dL (8-26); Calcium 8.5 mg/dL (8.6-10.8); Carbon Dioxide 35 mEq/L (19-29); Chloride 99 mEq/L (98-109); Glucose 117 mg/dL (70-99); Osmolality,Calculated 296 (280-300); Potassium 4.2 mEq/L (3.5-4.5); Sodium 142 mEq/L (136-145); eGFR For African Americans > 60 (> 60); eGFR For Non-African Americans > 60 (> 60)
[2017-01-18] MEDS: Ipratropium/Albuterol Neb 3 ML IH SCH ×4 (04:48→21:04)
[2017-01-18] MEDS: Piperacillin/Tazobactam 3.375 GM in D5% in Water (Mini-Bag+) 100 ML IVPB SCH ×3 (06:55→19:50)
[2017-01-18] MEDS ORDERED: Aminoglycoside Consult 1 EACH MC ONE (08:24)
[2017-01-18] MEDS: Aspirin Enteric Coated 81 MG Tablet PO SCH (09:16)
[2017-01-18] MEDS: Lactobacillus 1 EACH CAP.SPRINK PO SCH ×2 (09:16→19:50)
[2017-01-18] MEDS: Magnesium Oxide 400 MG TABLET PO SCH (09:16)
--- NOTE | 2017-01-18 13:26 | Internal Med Progress Note ---
Date of Encounter: 01/18/17 Time of Encounter: 13:24 - Assessment and plan (1) Sepsis Current Visit: Yes Status: Acute Assessment and plan: Hypoxic hypercapninc acute respiratory failure due to sepsis secondary to healthcare Associated pneumonia present upon admission Chest x-ray shows bilateral pneumonia in both bases Saturating in the 70s Requiring 15 L of oxygen continue Zosyn, Levaquin day 3, discontinued vancomycin, the patient's blood pressures are stable Blood cultures pending Qualifiers: Sepsis type: sepsis due to unspecified organism Qualified Code(s): A41.9 - Sepsis, unspecified organism (2) Healthcare-associated pneumonia Current Visit: Yes Status: Acute (3) Fistula Current Visit: Yes Status: Chronic Assessment and plan: follows with Dr Jung (The patient requested that Dr Jung is informed that he is here, which was done on 01/17/17) as outpatient. Was discharged from [place] , was given antibiotics and had minimal debridement of the surrounding tissue of the fistula (4) Elevated troponin Current Visit: Yes Status: Acute Assessment and plan: Likely secondary to demand ischemia Continue aspirin (5) Hypomagnesemia Current Visit: Yes Status: Acute Assessment and plan: repleted (6) HTN (hypertension) Current Visit: Yes Status: Chronic Qualifiers: Hypertension type: essential hypertension Qualified Code(s): I10 - Essential (primary) hypertension (7) Respiratory failure Current Visit: Yes Status: Acute Qualifiers: Chronicity: acute Respiratory failure complication: hypoxia Qualified Code(s): J96.01 - Acute respiratory failure with hypoxia (8) CHF (congestive heart failure) Current Visit: Yes Status: Suspected Assessment and plan: no exacerbation Echocardiogram showed ejection fraction of 55% with moderate diastolic dysfunction Qualifiers: Congestive heart failure type: diastolic Congestive heart failure chronicity: acute Qualified Code(s): I50.31 - Acute diastolic (congestive) heart failure - Subjective Interval history: The patient feels still very short of breath, requires 15 Lt of O2, denies any fevers, complains of mild abdominal pain where he has his fistula. No dysuria no headaches, bringing up yellowish phlegm at times - Constitutional Vitals: Temp Pulse Resp BP Pulse Ox 97.2 F L 70 18 144/85 90 01/18/17 06:36 01/18/17 11:52 01/18/17 11:14 01/18/17 11:14 01/18/17 11:14 General appearance: Present: A&O X 3 - Head Head exam: Present: atraumatic, normocephalic - Eye Eye exam: Present: PERRL, conjuntiva pink, sclera anicteric Pupils: Present: PERRL - Neck Neck exam general surgery: Present: supple, trachea midline. Absent: lymphadenopathy - Respiratory Respiratory exam: Present: CTAB, rales (Bibasilar fine crackles). Absent: accessory muscle use, rhonchi, wheezes - Cardiovascular Cardiovascular exam: Present: RRR, +S1, +S2. Absent: diastolic murmur, gallop, rubs, systolic murmur - GI/Abdominal GI/Abdominal exam: Present: normal bowel sounds, soft (Colostomy bag in place, small prolapse), no peritoneal signs. Absent: distended, tenderness Additional comments: Hypogastric fistula covered by dressing draining minimal amount of fluid - Extremities Exam Extremities exam: Present: warm, radial pulses palpable and symetrical. Absent : calf tenderness, cyanotic, pedal edema - Neurological Exam Neurological exam: Present: CN II-XII intact, oriented X3, no focal deficits. Absent: pronater drift, facial droop, speech deficit - Skin Skin exam: Present: dry, intact Internal Medicine: Result - Labs CBC & Chem 7: 01/18/17 04:01 01/18/17 04:01 Labs: Short CBC 01/18/17 Range/Units 04:01 WBC 15.8 H (4.3-11.1) K/mcL Hgb 12.4 L (12.9-16.9) g/dL Hct 38.0 (37.5-50.1) % Plt Count 213 (140-400) K/mcL [facility] 01/18/17 04:01 Sodium 142 Potassium 4.2 Chloride 99 Carbon Dioxide 35 H BUN 14 Creatinine 0.85 Glucose 117 H Calcium 8.5 L Consult Discharge Plan - Plan Referrals: NO,PCP [Primary Care Provider] -
[2017-01-18] MEDS: levoFLOXacin 500 MG TABLET PO SCH (19:51)
[2017-01-18] MEDS: Acetaminophen 325 MG TABLET PO PRN (20:06)
[2017-01-19] MEDS: Piperacillin/Tazobactam 3.375 GM in D5% in Water (Mini-Bag+) 100 ML IVPB SCH ×3 (03:21→18:47)
[2017-01-19] MEDS: traMADol 50 MG TABLET PO PRN ×3 (03:26→21:10)
[2017-01-19] MEDS: Ipratropium/Albuterol Neb 3 ML IH SCH ×4 (04:07→20:38)
[2017-01-19 06:09] LABS: Hematocrit 38.4 % (37.5-50.1); Hemoglobin 12.4 g/dL (12.9-16.9); Mean Corpuscular HGB Conc 32.3 g/dL (31.6-35.5); Mean Corpuscular Hemoglobin 27.9 pg (28.0-33.3); Mean Corpuscular Volume 86.3 fL (83.0-100.0); Mean Platelet Volume 11.4 fL (9.4-12.4); Platelet Count 224 K/mcL (140-400); Red Blood Count 4.45 M/mcL (4.19-5.50); Red Cell Distribution Width 14.6 % (11.5-14.5)
[2017-01-19 06:28] LABS: BUN/Creatinine Ratio 16 (6-26); Blood Urea Nitrogen 13 mg/dL (8-26); Calcium 8.5 mg/dL (8.6-10.8); Carbon Dioxide 33 mEq/L (19-29); Chloride 98 mEq/L (98-109); Glucose 138 mg/dL (70-99); Osmolality,Calculated 292 (280-300); Potassium 3.6 mEq/L (3.5-4.5); Sodium 140 mEq/L (136-145); eGFR For African Americans > 60 (> 60); eGFR For Non-African Americans > 60 (> 60)
[2017-01-19] MEDS: Ondansetron 4 MG/2 ML VIAL IVP PRN (08:00)
--- NOTE | 2017-01-19 08:48 | Internal Med Progress Note ---
Date of Encounter: 01/19/17 Time of Encounter: 08:46 - Assessment and plan (1) Sepsis Current Visit: Yes Status: Acute Assessment and plan: Hypoxic hypercapninc acute respiratory failure due to sepsis secondary to healthcare Associated pneumonia present upon admission Chest x-ray shows bilateral pneumonia in both bases Saturating in the 70s Requiring 15 L of oxygen continue Zosyn, Levaquin day 4, discontinued vancomycin, the patient's blood pressures are stable Blood cultures pending Qualifiers: Sepsis type: sepsis due to unspecified organism Qualified Code(s): A41.9 - Sepsis, unspecified organism (2) Healthcare-associated pneumonia Current Visit: Yes Status: Acute (3) Fistula Current Visit: Yes Status: Inactive Assessment and plan: follows with Dr Jung (The patient requested that Dr Jung is informed that he is here, which was done on 01/17/17) as outpatient. Was discharged from [place] , was given antibiotics and had minimal debridement of the surrounding tissue of the fistula (4) Elevated troponin Current Visit: Yes Status: Acute Assessment and plan: Likely secondary to demand ischemia Continue aspirin (5) Hypomagnesemia Current Visit: Yes Status: Acute (6) HTN (hypertension) Current Visit: Yes Status: Chronic Qualifiers: Hypertension type: essential hypertension Qualified Code(s): I10 - Essential (primary) hypertension (7) Respiratory failure Current Visit: Yes Status: Acute Qualifiers: Chronicity: acute Respiratory failure complication: hypoxia Qualified Code(s): J96.01 - Acute respiratory failure with hypoxia (8) CHF (congestive heart failure) Current Visit: Yes Status: Suspected Assessment and plan: no exacerbation Echocardiogram showed ejection fraction of 55% with moderate diastolic dysfunction Resume Lasix 40 mg IV (takes 40 minutes by mouth daily at home) Qualifiers: Congestive heart failure type: diastolic Congestive heart failure chronicity: acute Qualified Code(s): I50.31 - Acute diastolic (congestive) heart failure - Subjective Interval history: Feels still very short of breath, requiring 8 Lt of O2, denies any fevers, complains of mild abdominal pain where he has his fistula. No dysuria no headaches, bringing up yellowish phlegm at times - Constitutional Vitals: Temp Pulse Resp BP Pulse Ox 98.8 F 78 18 163/90 92 01/19/17 07:04 01/19/17 07:04 01/19/17 07:04 01/19/17 07:04 01/19/17 07:04 General appearance: Present: A&O X 3 - Head Head exam: Present: atraumatic, normocephalic - Eye Eye exam: Present: PERRL, conjuntiva pink, sclera anicteric Pupils: Present: PERRL - Neck Neck exam general surgery: Present: supple, trachea midline. Absent: lymphadenopathy - Respiratory Respiratory exam: Present: CTAB, rales (Bivascular crackles). Absent: accessory muscle use, rhonchi, wheezes - Cardiovascular Cardiovascular exam: Present: RRR, +S1, +S2. Absent: diastolic murmur, gallop, rubs, systolic murmur - GI/Abdominal GI/Abdominal exam: Present: distended (Hypogastric fistula covered by dressing draining minimal amount of fluid), normal bowel sounds, soft (Colostomy bag in place, small reducible prolapse), no peritoneal signs. Absent: tenderness - Extremities Exam Extremities exam: Present: warm, radial pulses palpable and symetrical. Absent : calf tenderness, cyanotic, pedal edema - Neurological Exam Neurological exam: Present: CN II-XII intact, oriented X3, no focal deficits. Absent: pronater drift, facial droop, speech deficit - Skin Skin exam: Present: dry, intact Internal Medicine: Result - Labs CBC & Chem 7: 01/19/17 06:01 01/19/17 06:01 Labs: Short CBC 01/19/17 Range/Units 06:01 WBC 12.6 H (4.3-11.1) K/mcL Hgb 12.4 L (12.9-16.9) g/dL Hct 38.4 (37.5-50.1) % Plt Count 224 (140-400) K/mcL [facility] 01/19/17 06:01 Sodium 140 Potassium 3.6 Chloride 98 Carbon Dioxide 33 H BUN 13 Creatinine 0.82 Glucose 138 H Calcium 8.5 L Consult Discharge Plan - Plan Referrals: NO,PCP [Primary Care Provider] -
[2017-01-19] MEDS: Lactobacillus 1 EACH CAP.SPRINK PO SCH ×2 (09:05→21:12)
[2017-01-19] MEDS: *HR* Heparin 5,000 UNIT/ML VIAL SQ SCH ×2 (09:05→16:35)
[2017-01-19] MEDS: Aspirin Enteric Coated 81 MG Tablet PO SCH (09:05)
[2017-01-19] MEDS: *HR* Morphine 2 MG/ML SYRINGE IVP PRN (09:06)
[2017-01-19] MEDS: Furosemide 40 MG/4 ML VIAL IVP SCH (09:33)
[2017-01-19] MEDS: levoFLOXacin 500 MG TABLET PO SCH (21:10)
[2017-01-20] MEDS: *HR* Heparin 5,000 UNIT/ML VIAL SQ SCH ×3 (00:41→16:08)
[2017-01-20] MEDS: Ipratropium/Albuterol Neb 3 ML IH SCH ×4 (03:47→23:07)
[2017-01-20] MEDS: Piperacillin/Tazobactam 3.375 GM in D5% in Water (Mini-Bag+) 100 ML IVPB SCH ×2 (04:08→16:30)
[2017-01-20] MEDS: *HR* Morphine 2 MG/ML SYRINGE IVP PRN (07:07)
[2017-01-20] MEDS: Aspirin Enteric Coated 81 MG Tablet PO SCH (09:03)
[2017-01-20] MEDS: Lactobacillus 1 EACH CAP.SPRINK PO SCH ×2 (09:03→19:57)
[2017-01-20] MEDS: Furosemide 40 MG/4 ML VIAL IVP SCH (09:03)
[2017-01-20] MEDS: Ondansetron 4 MG/2 ML VIAL IVP PRN ×2 (09:03→16:17)
--- NOTE | 2017-01-20 13:55 | Internal Med Progress Note ---
Date of Encounter: 01/20/17 Time of Encounter: 13:53 - Assessment and plan (1) Sepsis Current Visit: Yes Status: Acute Assessment and plan: Hypoxic hypercapninc acute respiratory failure due to sepsis secondary to healthcare Associated pneumonia present upon admission Chest x-ray shows bilateral pneumonia in both bases Saturating in the 70s Was requiring 15 L of oxygen ( now 4 Lt) continue Zosyn, Levaquin day 5, discontinued vancomycin, the patient's blood pressures are stable Blood cultures showed no growth Qualifiers: Sepsis type: sepsis due to unspecified organism Qualified Code(s): A41.9 - Sepsis, unspecified organism (2) Healthcare-associated pneumonia Current Visit: Yes Status: Acute (3) Fistula Current Visit: Yes Status: Inactive Assessment and plan: follows with Dr Jugn (The patient requested that Dr Jung is informed that he is here, which was done on 01/17/17) as outpatient. Was discharged from [place] , was given antibiotics and had minimal debridement of the surrounding tissue of the fistula (4) Elevated troponin Current Visit: Yes Status: Acute Assessment and plan: Likely secondary to demand ischemia Continue aspirin (5) Hypomagnesemia Current Visit: Yes Status: Acute Assessment and plan: repleted (6) HTN (hypertension) Current Visit: Yes Status: Chronic Qualifiers: Hypertension type: essential hypertension Qualified Code(s): I10 - Essential (primary) hypertension (7) Respiratory failure Current Visit: Yes Status: Acute Qualifiers: Chronicity: acute Respiratory failure complication: hypoxia Qualified Code(s): J96.01 - Acute respiratory failure with hypoxia (8) CHF (congestive heart failure) Current Visit: Yes Status: Suspected Assessment and plan: no exacerbation Echocardiogram showed ejection fraction of 55% with moderate diastolic dysfunction Resumed Lasix 40 mg IV (takes 40 minutes by mouth daily at home) Added 20 mg IV more qpm Qualifiers: Congestive heart failure type: diastolic Congestive heart failure chronicity: acute Qualified Code(s): I50.31 - Acute diastolic (congestive) heart failure - Subjective Interval history: Feels less short of breath, requiring 4 Lt of O2, denies any fevers, complains of mild abdominal pain where he has his fistula. No dysuria no headaches, bringing up yellowish phlegm at times - Constitutional Vitals: Temp Pulse Resp BP Pulse Ox 97.8 F 77 26 103/70 94 01/20/17 11:38 01/20/17 11:38 01/20/17 11:38 01/20/17 11:38 01/20/17 11:38 General appearance: Present: A&O X 3 - Head Head exam: Present: atraumatic, normocephalic - Eye Eye exam: Present: PERRL, conjuntiva pink, sclera anicteric Pupils: Present: PERRL - Neck Neck exam general surgery: Present: supple, trachea midline. Absent: lymphadenopathy - Respiratory Respiratory exam: Present: CTAB. Absent: accessory muscle use, rales, rhonchi, wheezes - Cardiovascular Cardiovascular exam: Present: RRR, +S1, +S2. Absent: diastolic murmur, gallop, rubs, systolic murmur - GI/Abdominal GI/Abdominal exam: Present: distended, normal bowel sounds, soft, no peritoneal signs. 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 Absent: calf tenderness, cyanotic - Neurological Exam Neurological exam: Present: CN II-XII intact, oriented X3, no focal deficits. Absent: pronater drift, facial droop, speech deficit - Skin Skin exam: Present: dry, intact Internal Medicine: Result - Labs CBC & Chem 7: 01/19/17 06:01 01/19/17 06:01 Consult Discharge Plan - Plan Referrals: NO,PCP [Primary Care Provider] -
[2017-01-20] MEDS: traMADol 50 MG TABLET PO PRN (16:07)
[2017-01-20] MEDS: Furosemide 20 MG/2 ML VIAL IVP SCH (16:16)
[2017-01-20] MEDS: levoFLOXacin 500 MG TABLET PO SCH (19:57)
[2017-01-21] MEDS: *HR* Morphine 2 MG/ML SYRINGE IVP PRN (01:25)
[2017-01-21] MEDS: *HR* Heparin 5,000 UNIT/ML VIAL SQ SCH ×4 (01:25→23:57)
[2017-01-21] MEDS: Piperacillin/Tazobactam 3.375 GM in D5% in Water (Mini-Bag+) 100 ML IVPB SCH ×4 (01:26→23:58)
[2017-01-21] MEDS: Ipratropium/Albuterol Neb 3 ML IH SCH ×4 (04:25→22:49)
[2017-01-21 05:05] LABS: Hematocrit 42.6 % (37.5-50.1); Mean Corpuscular HGB Conc 32.9 g/dL (31.6-35.5); Mean Corpuscular Hemoglobin 27.3 pg (28.0-33.3); Mean Corpuscular Volume 83.2 fL (83.0-100.0); Mean Platelet Volume 11.9 fL (9.4-12.4); Platelet Count 231 K/mcL (140-400); Red Blood Count 5.12 M/mcL (4.19-5.50); Red Cell Distribution Width 14.6 % (11.5-14.5)
[2017-01-21 05:24] LABS: BUN/Creatinine Ratio 19 (6-26); Blood Urea Nitrogen 16 mg/dL (8-26); Carbon Dioxide 31 mEq/L (19-29); Chloride 95 mEq/L (98-109); Glucose 116 mg/dL (70-99); Osmolality,Calculated 288 (280-300); Potassium 3.6 mEq/L (3.5-4.5); Sodium 138 mEq/L (136-145); eGFR For African Americans > 60 (> 60); eGFR For Non-African Americans > 60 (> 60)
[2017-01-21] MEDS: Aspirin Enteric Coated 81 MG Tablet PO SCH (08:33)
[2017-01-21] MEDS: Lactobacillus 1 EACH CAP.SPRINK PO SCH ×2 (08:33→20:21)
[2017-01-21] MEDS: traMADol 50 MG TABLET PO PRN (08:33)
[2017-01-21] MEDS: Furosemide 40 MG/4 ML VIAL IVP SCH (08:33)
[2017-01-21] MEDS: *HR* OxyCODONE/APAP 5/325 TABLET PO PRN ×2 (11:34→18:22)
--- NOTE | 2017-01-21 15:02 | Internal Med Progress Note ---
Date of Encounter: 01/21/17 Time of Encounter: 14:59 - Assessment and plan (1) Sepsis Current Visit: Yes Status: Acute Assessment and plan: Hypoxic hypercapninc acute respiratory failure due to acute COPD exacerbation from sepsis secondary to healthcare Associated pneumonia present upon admission Chest x-ray shows bilateral pneumonia in both bases Saturating in the 70s Was requiring 15 L of oxygen ( now 4.5 Lt) start prednisone continue Zosyn, Levaquin day 6, discontinued vancomycin, the patient's blood pressures are stable Blood cultures showed no growth Qualifiers: Sepsis type: sepsis due to unspecified organism Qualified Code(s): A41.9 - Sepsis, unspecified organism (2) Healthcare-associated pneumonia Current Visit: Yes Status: Acute (3) Fistula Current Visit: Yes Status: Inactive Assessment and plan: follows with Dr Jung (The patient requested that Dr Jung is informed that he is here, which was done on 01/17/17) as outpatient. Was discharged from [place] , was given antibiotics and had minimal debridement of the surrounding tissue of the fistula (4) Elevated troponin Current Visit: Yes Status: Acute Assessment and plan: Likely secondary to demand ischemia Continue aspirin (5) Hypomagnesemia Current Visit: Yes Status: Acute Assessment and plan: repleted (6) HTN (hypertension) Current Visit: Yes Status: Chronic Qualifiers: Hypertension type: essential hypertension Qualified Code(s): I10 - Essential (primary) hypertension (7) Respiratory failure Current Visit: Yes Status: Acute Qualifiers: Chronicity: acute Respiratory failure complication: hypoxia Qualified Code(s): J96.01 - Acute respiratory failure with hypoxia (8) CHF (congestive heart failure) Current Visit: Yes Status: Suspected Assessment and plan: no exacerbation, but slightly volume overloaded Echocardiogram showed ejection fraction of 55% with moderate diastolic dysfunction Resumed Lasix 40 mg IV (takes 40 minutes by mouth daily at home) Added 20 mg IV more qpm Qualifiers: Congestive heart failure type: diastolic Congestive heart failure chronicity: acute Qualified Code(s): I50.31 - Acute diastolic (congestive) heart failure - Subjective Interval history: Feels less short of breath, requiring 4.5 Lt of O2, denies any fevers, complains of mild abdominal pain where he has his fistula, mild nausea. No dysuria no headaches, bringing up yellowish phlegm at times but clearing up - Constitutional Vitals: Temp Pulse Resp BP Pulse Ox 97.5 F L 75 14 113/68 95 01/21/17 11:27 01/21/17 11:27 01/21/17 11:27 01/21/17 11:27 01/21/17 11:27 General appearance: Present: A&O X 3 - Head Head exam: Present: atraumatic, normocephalic - Eye Eye exam: Present: PERRL, conjuntiva pink, sclera anicteric Pupils: Present: PERRL - Neck Neck exam general surgery: Present: supple, trachea midline. Absent: lymphadenopathy - Respiratory Respiratory exam: Present: CTAB, rales (bibasilar fine crackles with minimal wheezing). Absent: accessory muscle use, rhonchi, wheezes - Cardiovascular Cardiovascular exam: Present: RRR, +S1, +S2. Absent: diastolic murmur, gallop, rubs, systolic murmur - GI/Abdominal GI/Abdominal exam: Present: distended (Hypogastric fistula covered by dressing draining minimal amount of fluid), normal bowel sounds, soft (Colostomy bag in place, small reducible prolapse), normal bowel sounds, soft, no peritoneal signs. Absent: tenderness - Extremities Exam Extremities exam: Present: warm, radial pulses palpable and symetrical. Absent : calf tenderness, cyanotic, pedal edema - Neurological Exam Neurological exam: Present: CN II-XII intact, oriented X3, no focal deficits. Absent: pronater drift, facial droop, speech deficit - Skin Skin exam: Present: dry, intact Internal Medicine: Result - Labs CBC & Chem 7: 01/21/17 04:23 01/21/17 04:23 Labs: Short CBC 01/21/17 Range/Units 04:23 WBC 14.8 H (4.3-11.1) K/mcL Hgb 14.0 D (12.9-16.9) g/dL Hct 42.6 (37.5-50.1) % Plt Count 231 (140-400) K/mcL [facility] 01/21/17 04:23 Sodium 138 Potassium 3.6 Chloride 95 L Carbon Dioxide 31 H BUN 16 Creatinine 0.85 Glucose 116 H Calcium 9.0 Consult Discharge Plan - Plan Referrals: NO,PCP [Primary Care Provider] -
[2017-01-21] MEDS: Furosemide 20 MG/2 ML VIAL IVP SCH (16:49)
[2017-01-21] MEDS: predniSONE 20 MG TABLET PO SCH (16:50)
[2017-01-21] MEDS: Gabapentin 300 MG CAPSULE PO SCH (20:21)
[2017-01-21] MEDS: levoFLOXacin 500 MG TABLET PO SCH (20:21)
[2017-01-22] MEDS: Ipratropium/Albuterol Neb 3 ML IH SCH ×4 (04:16→22:34)
[2017-01-22] MEDS: *HR* Heparin 5,000 UNIT/ML VIAL SQ SCH ×2 (07:50→16:26)
[2017-01-22] MEDS: Lactobacillus 1 EACH CAP.SPRINK PO SCH ×2 (07:51→21:47)
[2017-01-22] MEDS: Furosemide 40 MG/4 ML VIAL IVP SCH (07:51)
[2017-01-22] MEDS: Gabapentin 300 MG CAPSULE PO SCH ×3 (07:51→21:48)
[2017-01-22] MEDS: predniSONE 20 MG TABLET PO SCH (07:51)
[2017-01-22] MEDS: Aspirin Enteric Coated 81 MG Tablet PO SCH (07:51)
[2017-01-22] MEDS: Piperacillin/Tazobactam 3.375 GM in D5% in Water (Mini-Bag+) 100 ML IVPB SCH ×2 (07:51→16:27)
--- NOTE | 2017-01-22 08:10 | Internal Med Progress Note ---
Date of Encounter: 01/22/17 Time of Encounter: 08:08 - Assessment and plan (1) Sepsis Current Visit: Yes Status: Acute Assessment and plan: Hypoxic hypercapninc acute respiratory failure due to acute COPD exacerbation from sepsis secondary to healthcare Associated pneumonia present upon admission Chest x-ray shows bilateral pneumonia in both bases Saturating in the 70s Was requiring 15 L of oxygen ( now 5 Lt) started prednisone, needs to be tapered continue Zosyn, Levaquin day 7, discontinued vancomycin, the patient's blood pressures are stable Blood cultures showed no growth Qualifiers: Sepsis type: sepsis due to unspecified organism Qualified Code(s): A41.9 - Sepsis, unspecified organism (2) Healthcare-associated pneumonia Current Visit: Yes Status: Acute (3) Fistula Current Visit: Yes Status: Inactive Assessment and plan: follows with Dr Jung (The patient requested that Dr Jung is informed that he is here, which was done on 01/17/17) as outpatient. Was discharged from [place] , was given antibiotics and had minimal debridement of the surrounding tissue of the fistula (4) Elevated troponin Current Visit: Yes Status: Acute Assessment and plan: Likely secondary to demand ischemia Continue aspirin (5) Hypomagnesemia Current Visit: Yes Status: Acute Assessment and plan: repleted (6) HTN (hypertension) Current Visit: Yes Status: Chronic Qualifiers: Hypertension type: essential hypertension Qualified Code(s): I10 - Essential (primary) hypertension (7) Respiratory failure Current Visit: Yes Status: Acute Qualifiers: Chronicity: acute Respiratory failure complication: hypoxia Qualified Code(s): J96.01 - Acute respiratory failure with hypoxia (8) CHF (congestive heart failure) Current Visit: Yes Status: Suspected Assessment and plan: no exacerbation, but slightly volume overloaded Echocardiogram showed ejection fraction of 55% with moderate diastolic dysfunction Resumed Lasix 40 mg IV (takes 40 minutes by mouth daily at home) Added 20 mg IV more qpm Qualifiers: Congestive heart failure type: diastolic Congestive heart failure chronicity: acute Qualified Code(s): I50.31 - Acute diastolic (congestive) heart failure - Subjective Interval history: Feels still short of breath, requiring 5 Lt of O2 ( worse than yesterday), denies any fevers, complains of mild abdominal pain where he has his fistula, mild nausea. No dysuria no headaches, bringing up yellowish phlegm at times but clearing up - Constitutional Vitals: Temp Pulse Resp BP Pulse Ox 98 F 83 15 138/76 96 01/22/17 07:26 01/22/17 07:26 01/22/17 07:26 01/22/17 07:26 01/22/17 07:26 General appearance: Present: A&O X 3 - Head Head exam: Present: atraumatic, normocephalic - Eye Eye exam: Present: PERRL, conjuntiva pink, sclera anicteric Pupils: Present: PERRL - Neck Neck exam general surgery: Present: supple, trachea midline. Absent: lymphadenopathy - Respiratory Respiratory exam: Present: decreased breath sounds, CTAB. Absent: accessory muscle use, rales, rhonchi, wheezes - Cardiovascular Cardiovascular exam: Present: RRR, +S1, +S2. Absent: diastolic murmur, gallop, rubs, systolic murmur - GI/Abdominal GI/Abdominal exam: Present: distended, normal bowel sounds, soft, no peritoneal signs. 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 Absent : calf tenderness, cyanotic, pedal edema - Neurological Exam Neurological exam: Present: CN II-XII intact, oriented X3, no focal deficits. Absent: pronater drift, facial droop, speech deficit - Skin Skin exam: Present: dry, intact Internal Medicine: Result - Labs CBC & Chem 7: 01/21/17 04:23 01/21/17 04:23 Consult Discharge Plan - Plan Referrals: NO,PCP [Primary Care Provider] -
[2017-01-22] MEDS: *HR* OxyCODONE/APAP 5/325 TABLET PO PRN ×2 (13:21→21:59)
[2017-01-22] MEDS: Furosemide 20 MG/2 ML VIAL IVP SCH (16:26)
[2017-01-22] MEDS: levoFLOXacin 500 MG TABLET PO SCH (21:47)
[2017-01-23] MEDS: Piperacillin/Tazobactam 3.375 GM in D5% in Water (Mini-Bag+) 100 ML IVPB SCH ×2 (00:18→08:03)
[2017-01-23] MEDS: *HR* Heparin 5,000 UNIT/ML VIAL SQ SCH ×2 (00:18→08:04)
[2017-01-23] MEDS: Ipratropium/Albuterol Neb 3 ML IH SCH ×2 (03:57→10:20)
[2017-01-23] MEDS: *HR* OxyCODONE/APAP 5/325 TABLET PO PRN ×2 (04:17→11:10)
[2017-01-23 05:06] LABS: Hematocrit 41.8 % (37.5-50.1); Hemoglobin 13.7 g/dL (12.9-16.9); Mean Corpuscular HGB Conc 32.8 g/dL (31.6-35.5); Mean Corpuscular Hemoglobin 27.7 pg (28.0-33.3); Mean Corpuscular Volume 84.6 fL (83.0-100.0); Platelet Count 193 K/mcL (140-400); Red Blood Count 4.94 M/mcL (4.19-5.50); Red Cell Distribution Width 14.6 % (11.5-14.5)
[2017-01-23 05:30] LABS: BUN/Creatinine Ratio 31 (6-26); Carbon Dioxide 33 mEq/L (19-29); Chloride 99 mEq/L (98-109); Glucose 148 mg/dL (70-99); Osmolality,Calculated 296 (280-300); Potassium 3.7 mEq/L (3.5-4.5); Sodium 139 mEq/L (136-145); eGFR For African Americans > 60 (> 60); eGFR For Non-African Americans > 60 (> 60)
[2017-01-23 05:31] LABS: Blood Urea Nitrogen 28 mg/dL (8-26)
[2017-01-23] MEDS: Furosemide 40 MG/4 ML VIAL IVP SCH (08:01)
[2017-01-23] MEDS: predniSONE 20 MG TABLET PO SCH (08:03)
[2017-01-23] MEDS: Gabapentin 300 MG CAPSULE PO SCH (08:03)
[2017-01-23] MEDS: Lactobacillus 1 EACH CAP.SPRINK PO SCH (08:03)
[2017-01-23] MEDS: Aspirin Enteric Coated 81 MG Tablet PO SCH (08:03)
--- NOTE | 2017-01-23 11:20 | Discharge Summary ---
Date of Encounter: 01/23/17 Time of Encounter: 11:16 - Discharge Diagnosis (1) Healthcare-associated pneumonia Priority: Primary Status: Acute (2) Sepsis Priority: Primary Status: Acute Qualifiers: Sepsis type: sepsis due to unspecified organism Qualified Code(s): A41.9 - Sepsis, unspecified organism (3) HTN (hypertension) Priority: Secondary Status: Chronic Qualifiers: Hypertension type: essential hypertension Qualified Code(s): I10 - Essential (primary) hypertension - Discharge Medications Prescriptions: Piperacillin/Tazobactam [Zosyn] 3.375 gm IVPB Q8HR 3 Days predniSONE [PredniSONE] See Taper PO DAILY #35 tablet Home Medications: Acetaminophen [Tylenol] 1,000 mg PO TID PRN 01/16/17 [History] Albuterol Sulfate [Albuterol Inhaler] 2 puff IH QID PRN 01/16/17 [History] Aloe Vera/Collagen [Aloe [place] Cleansing Foam] 1 appl TP DAILY 01/16/17 [History ] Ascorbate Calcium [Vitamin C] 500 mg PO DAILY 01/16/17 [History] Carboxymethylcellulose Sodium [Refresh Liquigel] 1 drop BOTH EYES QID 01/16/17 [ History] Docusate [Colace] 100 mg PO BID 01/16/17 [History] Ferrous Sulfate 325 mg PO BIDWM 01/16/17 [History] Furosemide [Lasix] 40 mg PO DAILY 01/16/17 [History] Gabapentin [Neurontin] 600 mg PO TID 01/16/17 [History] L. Acidophilus/Pectin, [place] [Acidophilus Probiotic Capsule] 1 each PO TIDAC [History] Metoprolol [Lopressor] 50 mg PO BID 01/16/17 [History] Multivitamin [Multi-Day Vitamins] 1 each PO DAILY 01/16/17 [History] Ranitidine HCl [Zantac] 150 mg PO BID 01/16/17 [History] Rivaroxaban [Xarelto] 20 mg PO DAILY 01/16/17 [History] Simvastatin [Zocor] 20 mg PO HS 01/16/17 [History] Sod Chloride/B-6/Zinc Acet/Ca [Wound Cleanser] 3 - 5 spray IR DAILY 01/16/17 [ History] Vit C/E/Zn/Coppr/Lutein/Zeaxan [Preservision Areds 2 Softgel] 1 cap PO BID 01/16 [History] Piperacillin/Tazobactam [Zosyn] 3.375 gm IVPB Q8HR 3 Days 01/23/17 [Rx] predniSONE [PredniSONE] See Taper PO DAILY #35 tablet 01/23/17 [Rx] Allergies/Adverse Reactions: Allergies latex Adverse Reaction (Verified 01/16/17 21:16) See Comments per wa list Date of admission: 01/16/17 22:07 [facility] care physician: [facility] Consults: 01/18/17 08:34 Consult to Wound Care [CONS] Routine Reason for Consult: wound to ABD Time Notified: 08:35 Call Completed: Yes 01/18/17 10:06 Consult to Occupational Therapy [CONS] Routine Comment: Evaluate, develop and implement POC Reason for Consult: possible ECF 01/18/17 10:08 Consult to Physical Therapy [CONS] Routine Comment: Evaluate, develop and implement POC Reason for Consult: possible ECF 01/20/17 13:10 Consult to Invasive Line Access Team [CONS] Routine Reason for Consult: IV medications, difficult stick Line Type: EPIV 01/21/17 15:01 Consult to Coder [CONS] Routine Reason for SW Consult: Coordinate home oxygen, any other homegoing needs Discharging clinician: Hima Larry Anticipated date of discharge: 01/23/17 - Patient Status Disposition: Transfer [facility] Condition: Fair Functional capacity at discharge: independent ambulation Overall status at discharge: patient is progressing back to baseline - Discharge Instructions Instructions: Prednisone (By mouth), Piperacillin/Tazobactam (Injection), Heart Healthy Diet (DC), Sepsis (DC), Pneumonia (DC) Follow Up With: Lynne Casey, PHOTOGRAPHIC PRINTER [Advanced Practice Nurse] - (cardiology office makes their own appointments, they will call the patient) [facility],PCP [Primary Care Provider] - (PATIENT IS GOING TO MEDICAL FLOOR AT [facility], NO PCP APPOINTMENT NEEDED) - Diet and Activity Activity: as per physical therapy Diet: advance to your usual diet Interval History: Mr. Wolf is a 66 year old male who was brought to the emergency department by EMS after he was found down in his home. Apparently the patient was discharged from [facility] in [place] the same day.he patient was found on the floor by a home oxygen therapy who went into the patient's home. They called EMS. The patient was found to have saturation of 70s on room air. He was placed on 4 L nasal cannula which brought his saturations up to 90s. He was brought to the emergency department. workup revealed b/l pneumonia, he was admitted for sepsis 2/2 HCAP and he was treated with IV antibiotics. he was tretaed with high flow oxygen initially and was requiring up to 10-15 L of oxygen. Treatment with antibiotics improved his infection clinically, at this time his tolerated 4 L with nasal cannula. Urine Legionella and strep antigen was negative. Blood cultures came out negative.Echocardiogram showed ejection fraction of 55% with moderate diastolic dysfunction he also has a abdominal fistula with colostomy bag , Was discharged from [place] , was given antibiotics and had minimal debridement of the surrounding tissue of the fistula. he will f/u with DR. cartagena as OP for further management. he is being accepted to [facility] medical floor and will recommend to continue IV zosyn to compete 7 days, he is being dc in stable condition. Hospital course: Mr. Wolf is a 66 year old male - Time Spent with Patient Total time spent providing and/or coordinating discharge services: - Constitutional Vitals: Temp Pulse Resp BP Pulse Ox 97.7 F 68 18 123/73 97 01/23/17 07:31 01/23/17 09:16 01/23/17 10:20 01/23/17 07:31 01/23/17 10:20 General appearance: Present: A&O X 3 Exam: - Head Head exam: Present: atraumatic, normocephalic - Eye Eye exam: Present: PERRL, conjuntiva pink, sclera anicteric Pupils: Present: PERRL - Neck Neck exam general surgery: Present: supple, trachea midline. Absent: lymphadenopathy - Respiratory Respiratory exam: Present: CTAB. Absent: accessory muscle use, rhonchi, wheezes - Cardiovascular Cardiovascular exam: Present: RRR, +S1, +S2. Absent: diastolic murmur, gallop, rubs, systolic murmur - GI/Abdominal GI/Abdominal exam: Present: distended (colostomy in the right hemiabdomen, others protrusion/prolapse of part of the colon), normal bowel sounds, soft, no peritoneal signs. Absent: tenderness - Extremities Exam Extremities exam: Present: warm, radial pulses palpable and symetrical. Absent : calf tenderness, cyanotic, pedal edema - Neurological Exam Neurological exam: Present: CN II-XII intact, oriented X3, no focal deficits. Absent: pronater drift, facial droop, speech deficit - Skin Skin exam: Present: dry. Absent: intact (lower abdominal fistula without surrounding erythemaor increased straining)
[2017-01-23 11:26] VITALS: BP 112/66
[2017-01-24] MEDS ORDERED: Furosemide 40 MG TABLET PO SCH (09:00)
== END 2017-01-23 14:43 | DRG 871 ==
LOC: EMEROO 18:46 → ICNU 22:07 → SUATTDRO 22:07 → ICNU 22:40 → 2NNU 01-17 22:07
PROVIDERS: ADMIT Internal Medicine Sleep Medicine; ATTEND Internal Medicine

== ENCOUNTER 2017-12-30 22:28 | Inpatient (IN) ==
[2017-12-30] MEDS ORDERED: 0.9 % Sodium Chloride 500 ML IVC ONE (23:00)
--- NOTE | 2017-12-30 23:04 | Emergency Department Note ---
Disposition Clinical Impression: Hyponatremia, Hypokalemia, Small bowel obstruction Altered mental status Qualifiers: Altered mental status type: somnolence Qualified Code(s): R40.0 - Somnolence Acute renal failure Qualifiers: Acute renal failure type: unspecified Qualified Code(s): N17.9 - Acute kidney failure, unspecified Disposition: Admitted As Inpatient Condition: Fair [facility]: [facility]Primary Care Provider[facility] - Forms: ED Satisfaction Letter Time of Disposition: 00:56 Nausea/Vomiting/Diarrhea HPI - General Chief complaint: ED Nausea/Vomiting/Diarrhea Stated complaint: Weakness Time Seen by Provider: 12/30/17 22:36 Source: patient Limitations: no limitations Nursing Notes Reviewed: Yes Vital Signs Reviewed: Yes - History of Present Illness HPI Narrative: This is a 67 year-old male with hitsory of HTN, HLD, AF/Coumadin, COPD, CAD/[place], rose obstruction s/p ostomy 3.5 years ago. He presents with nausea and vomiting for the past 2 weeks. It sounds like he's also had increased osteomy output at times, but he describes the output as normal in amount today. He also reports diffuse abdominal pain, radiating to the back, also for 2 weeks. Other associated symptoms include malaise, generalized weakness, fatigue, and poor appetite. He denies any associated fever, chest pain, dyspnea, or blood in vomit or stool. Pt Subjective Complaint: nausea, vomiting, abdominal pain Onset (ago): week(s) (2) Description of emesis: watery Number of episodes of emesis: 3 Description of Diarrhea: other (pasty stool per ostomy) Associated Abdominal Pain: Yes If pain, Location of pain: diffuse Radiation: other (back) Severity: moderate Quality: cramping Consistency: constant Improves with: nothing Worsens with: eating Context: history of abdominal surgery, anticoagulant use Associated symptoms: Reports: loss of appetite, malaise, nausea/vomiting, weakness (generalized). Denies: chest pain, cough, fever/chills, headaches, dysuria, shortness of breath - Related Data Home Medications Medication Instructions Recorded Confirmed Acetaminophen [Tylenol] 1,000 mg PO TID PRN 01/16/17 01/16/17 Albuterol Sulfate [Albuterol 2 puff IH QID PRN 01/16/17 01/16/17 Inhaler] Aloe Vera/Collagen [Aloe [place] 1 appl TP DAILY 01/16/17 01/16/17 Cleansing Foam] Ascorbate Calcium [Vitamin C] 500 mg PO DAILY 01/16/17 01/16/17 Carboxymethylcellulose Sodium 1 drop BOTH EYES QID 01/16/17 01/16/17 [Refresh Liquigel] Docusate [Colace] 100 mg PO BID 01/16/17 01/16/17 Ferrous Sulfate 325 mg PO BIDWM 01/16/17 01/16/17 Furosemide [Lasix] 40 mg PO DAILY 01/16/17 01/16/17 Gabapentin [Neurontin] 600 mg PO TID 01/16/17 01/16/17 L. Acidophilus/Pectin, [place] 1 each PO TIDAC 01/16/17 01/16/17 [Acidophilus Probiotic Capsule] Metoprolol [Lopressor] 50 mg PO BID 01/16/17 01/16/17 Multivitamin [Multi-Day Vitamins] 1 each PO DAILY 01/16/17 01/16/17 Rivaroxaban [Xarelto] 20 mg PO DAILY 01/16/17 01/16/17 Simvastatin [Zocor] 20 mg PO HS 01/16/17 01/16/17 Sod Chloride/B-6/Zinc Acet/Ca 3 - 5 spray IR DAILY 01/16/17 01/16/17 [Wound Cleanser] Vit C/E/Zn/Coppr/Lutein/Zeaxan 1 cap PO BID 01/16/17 01/16/17 [Preservision Areds 2 Softgel] raNITIdine HCl [Zantac] 150 mg PO BID 01/16/17 01/16/17 Previous Rx's Medication Instructions Recorded Piperacillin/Tazobactam [Zosyn] 3.375 gm IVPB Q8HR 3 Days vial 01/23/17 predniSONE [PredniSONE] See Taper PO DAILY #35 tablet 01/23/17 Allergies Allergy/AdvReac Type Severity Reaction Status Date / Time latex AdvReac See Verified 01/16/17 21:16 Comments All systems ED: reviewed and negative except as stated. Constitutional: Reports: weakness (generalized). Denies: fever Cardiovascular: Denies: chest pain Respiratory: Denies: dyspnea Gastrointestinal: Reports: as per HPI, abdominal pain, nausea, vomiting, diarrhea (??). Denies: hematemesis, melena, hematochezia Genitourinary: Denies: dysuria Musculoskeletal: Reports: back pain Neurological: Denies: headache, weakness, numbness Past Medical History - Past Medical History Medical history: Reports: atrial fibrillation, COPD, hyperlipidemia, hypertension, myocardial infarction, other Surgical history: Reports: colostomy Psychiatric history: Reports: no psych history - Social History Smoking Status: Current every day smoker Smokeless Tobacco Status: No Alcohol use: Reports: none Drug use: Reports: none Physical Exam - General Limitations: no limitations General appearance: alert - Head Head exam: atraumatic, normocephalic - Eye Eye exam: Present: normal appearance. Absent: scleral icterus - ENT ENT exam: normal exam - Neck Neck exam: Present: normal inspection - Respiratory Respiratory exam: Present: normal lung sounds bilaterally. Absent: respiratory distress, wheezes - Cardiovascular Cardiovascular exam: Present: regular rate, normal rhythm, normal heart sounds - Abdominal Exam Abdominal exam: Present: soft, Non-Tender, other (ostomy with brown pasty stool) . Absent: distention, guarding, rebound, rigidity - Extremities Exam Extremities exam: Present: normal inspection. Absent: calf tenderness - Neurological Exam Neurological exam: Present: oriented X3, other (somnolent; patient says he was given a morphine patch earlier this evening). Absent: motor sensory deficit - Psychiatric Psychiatric exam: Present: flat affect - Skin Skin exam: Present: warm, dry, intact Course - Reevaluation(s) Reevaluation #1: On recheck, patient is clinically unchanged. He remains comfortable-appearing. Mild, diffuse abdominal tenderness without peritoneal signs. CT report just came back, possible small bowel obstruction. We will place NGT and discuss with surgery. Time: 03:17 - Consultations Consultation #1: Reviewed case with Dr. Rose. He requests that re-scan, putting oral contrast down NGT. Time: 03:19 Consultation #2: Reviewed results of 2nd CT abd/pelvis with Dr. Rose. He asks that we admit to hospitalist, and he will consult. Time: 06:04 Consultation #3: Reviewed case with Dr. Maldonado. He says he cannot take patient, who will need to go to the ICU, and the ICU attending comes on at 7am. He suggests that in the mean time, we talk with nephrology regarding patient's sodium. Paged neprology. Time: 06:07 Additional Consultation(s): Reviewed case with Dr. Faith. He recommends 0.9 NS at 125/hour, and check BMP q4h. We will finish out patient's current bolus of saline. I've ordered a repeat BMP. Will page the associate medical director around 7am. 07:20 - Reviewed case with Dr. Esteban, and patient accepted for admission. Vital Signs Temperature 98.0 F 12/30/17 22:34 Pulse Rate 63 12/30/17 22:34 Respiratory Rate 27 12/30/17 22:34 Blood Pressure 124/71 12/30/17 22:34 O2 Sat by Pulse Oximetry 95 12/30/17 22:34 Temperature 98.0 F 12/30/17 22:34 Pulse Rate 63 12/31/17 06:38 Respiratory Rate 12 12/31/17 06:38 Blood Pressure 129/68 12/31/17 06:38 O2 Sat by Pulse Oximetry 95 12/31/17 06:38 Oxygen Delivery Oxygen Delivery Nasal Cannula Nausea/Vomiting/Diarrhea - Lab Data Lab results reviewed: Yes I reviewed the patient's lab results. Result diagrams: 12/30/17 22:40 12/30/17 22:40 Lab Results 12/30/17 12/30/17 12/30/17 Range/Units 22:40 22:40 22:40 WBC 17.9 H (4.3-11.1) K/mcL RBC 5.45 (4.19-5.50) M/mcL Hgb 15.3 (12.9-16.9) g/dL Hct 41.9 (37.5-50.1) % MCV 76.9 L (83.0-100.0) fL MCH 28.1 (28.0-33.3) pg MCHC 36.5 H (31.6-35.5) g/dL RDW 13.2 (11.5-14.5) % Plt Count 197 (140-400) K/mcL MPV 11.8 (9.4-12.4) fL Immature Gran % 0.8 (0-4) % Seg Neutrophils % 73.7 % Lymphocytes % 14.6 % Monocytes % 9.4 % Eosinophils % 1.3 % Basophils % 0.2 % Neutrophils # 13.2 H (1.6-8.9) K/mcL Lymphocytes # 2.6 (0.6-4.6) K/mcL Monocytes # 1.7 H (0.0-1.3) K/mcL Eosinophils # 0.2 (0.0-0.6) K/mcL Basophils # 0.0 (0.0-0.2) K/mcL PT 13.1 H (9.4-12.1) Seconds INR 1.2 APTT 36.8 H (26.0-36.0) Seconds Sodium 110 L* (136-145) mEq/L Potassium 2.7 L (3.5-5.1) mEq/L Chloride 55 L (98-107) mEq/L Carbon Dioxide 42 H* (23-29) mEq/L BUN 78 H (8-23) mg/dL Creatinine 2.21 H (0.70-1.30) mg/dL Est GFR ( Amer) 36 L (> 60) Est GFR (Non-Af Amer) 30 L (> 60) BUN/Creatinine Ratio 35 H (6-26) Glucose 103 (70-105) mg/dL Calculated Osmolality 254 L (280-300) Calcium 9.3 (8.6-10.3) mg/dL Total Bilirubin 0.6 (0.3-1.0) mg/dL AST 16 (13-39) Units/L ALT 11 (7-52) Units/L Alkaline Phosphatase 90 (34-104) Units/L Troponin I < 0.03 (< 0.04) ng/mL Serum Total Protein 6.9 (6.4-8.9) g/dL Albumin 4.2 (3.5-5.7) g/dL Globulin 2.7 (2.4-3.5) g/dL Albumin/Globulin Ratio 1.6 (1.1-2.2) Urine Color (Yellow) Urine Clarity (Clear) Urine pH (5.0-8.0) pH Units Ur Specific [place] (1.010-1.025) Urine Protein (Neg-Trace) mg/dL Urine Glucose (UA) (Normal) mg/dL Urine Ketones (Negative) mg/dL Urine Blood (Negative) Urine Nitrite (Negative) Urine Bilirubin (Negative) Urine Urobilinogen (Normal) mg/dL Ur Leukocyte Esterase (Negative) Urine Microscopic RBC (0-3) per hpf Urine Microscopic WBC (0-3) per hpf Ur Squamous Epith Cells (None-Few) per lpf Urine Bacteria (None-Few) per hpf Hyaline Casts (None-Few) per lpf Ur Culture Indicated? (NO) Stool Occult Blood (Negative) Stl C. diff Tox B Gene (Negative) 12/30/17 12/30/17 12/30/17 Range/Units 23:12 23:30 23:30 WBC (4.3-11.1) K/mcL RBC (4.19-5.50) M/mcL Hgb (12.9-16.9) g/dL Hct (37.5-50.1) % MCV (83.0-100.0) fL MCH (28.0-33.3) pg MCHC (31.6-35.5) g/dL RDW (11.5-14.5) % Plt Count (140-400) K/mcL MPV (9.4-12.4) fL Immature Gran % (0-4) % Seg Neutrophils % % Lymphocytes % % Monocytes % % Eosinophils % % Basophils % % Neutrophils # (1.6-8.9) K/mcL Lymphocytes # (0.6-4.6) K/mcL Monocytes # (0.0-1.3) K/mcL Eosinophils # (0.0-0.6) K/mcL Basophils # (0.0-0.2) K/mcL PT (9.4-12.1) Seconds INR APTT (26.0-36.0) Seconds Sodium (136-145) mEq/L Potassium (3.5-5.1) mEq/L Chloride (98-107) mEq/L Carbon Dioxide (23-29) mEq/L BUN (8-23) mg/dL Creatinine (0.70-1.30) mg/dL Est GFR ( Amer) (> 60) Est GFR (Non-Af Amer) (> 60) BUN/Creatinine Ratio (6-26) Glucose (70-105) mg/dL Calculated Osmolality (280-300) Calcium (8.6-10.3) mg/dL Total Bilirubin (0.3-1.0) mg/dL AST (13-39) Units/L ALT (7-52) Units/L Alkaline Phosphatase (34-104) Units/L Troponin I (< 0.04) ng/mL Serum Total Protein (6.4-8.9) g/dL Albumin (3.5-5.7) g/dL Globulin (2.4-3.5) g/dL Albumin/Globulin Ratio (1.1-2.2) Urine Color Yellow (Yellow) Urine Clarity Cloudy A (Clear) Urine pH 5.0 (5.0-8.0) pH Units Ur Specific [place] 1.020 (1.010-1.025) Urine Protein 30 H (Neg-Trace) mg/dL Urine Glucose (UA) Normal (Normal) mg/dL Urine Ketones Negative (Negative) mg/dL Urine Blood Negative (Negative) Urine Nitrite Negative (Negative) Urine Bilirubin Negative (Negative) Urine Urobilinogen Normal (Normal) mg/dL Ur Leukocyte Esterase Negative (Negative) Urine Microscopic RBC 5-15 H (0-3) per hpf Urine Microscopic WBC 0-3 (0-3) per hpf Ur Squamous Epith Cells Many H (None-Few) per lpf Urine Bacteria None Seen (None-Few) per hpf Hyaline Casts Moderate H (None-Few) per lpf Ur Culture Indicated? NO (NO) Stool Occult Blood Positive A (Negative) Stl C. diff Tox B Gene Negative (Negative) - Radiology Data Radiology results reviewed: Yes I reviewed the patient's radiology results. CT/CT head/brain wo con IMPRESSION: No acute intracranial abnormality. CT/CT chest wo con IMPRESSION: 1. Findings compatible with small bowel obstruction. Question closed obstruction in the mid abdomen. Transition point noted in the pelvis just inferior to the iliac bifurcation. 2. Centrilobular emphysema. No focal airspace disease. 3. 0.4 cm pulmonary nodule in right upper lobe. 4. Multiple gallstones 5. Mildly dilated left renal collecting system without obstructing calculus. This may be related to external compression of the left ureter by the distended small bowel loops. 6. 1.4 cm right adrenal lesion of indeterminate cause. Correlate with dedicated adrenal protocol CT or MRI as clinically indicated. CT/CT abd pelvis wo iv oral only IMPRESSION: 1. Small-bowel obstruction relatively stable in appearance from prior CT on the same date. Underlying etiology is not determined, but there does appear to be a transition in the midline pelvis which may be due to adhesions. 2. Right adrenal nodule represents an adenoma. Questionable tiny left adrenal adenoma. - EKG Data EKG attestation: Yes I reviewed and interpreted this EKG. EKG results narrative: biphasic T waves noted in several leads (II, V3, V4, V5) EKG shows normal: sinus rhythm, axis Rate: normal Rhythm: NSR When compared to previous EKG there are: changes noted Interpretation: nonspecific ST-T wave changes
[2017-12-30 23:10] LABS: Basophils % 0.2 %; Immature Granulocytes % 0.8 % (0-4)
[2017-12-30] MEDS: Ondansetron 4 MG/2 ML VIAL IVP ONE (23:10)
[2017-12-30 23:12] LABS: Eosinophils # 0.2 K/mcL (0.0-0.6); Eosinophils % 1.3 %; Hematocrit 41.9 % (37.5-50.1); Hemoglobin 15.3 g/dL (12.9-16.9); Lymphocytes # 2.6 K/mcL (0.6-4.6); Lymphocytes % 14.6 %; Mean Corpuscular HGB Conc 36.5 g/dL (31.6-35.5); Mean Corpuscular Hemoglobin 28.1 pg (28.0-33.3); Mean Corpuscular Volume 76.9 fL (83.0-100.0); Mean Platelet Volume 11.8 fL (9.4-12.4); Monocytes # 1.7 K/mcL (0.0-1.3); Monocytes % 9.4 %; Neutrophils # 13.2 K/mcL (1.6-8.9); Platelet Count 197 K/mcL (140-400); Red Blood Count 5.45 M/mcL (4.19-5.50); Red Cell Distribution Width 13.2 % (11.5-14.5); Segmented Neutrophils % 73.7 %
[2017-12-30 23:15] LABS: INR 1.2; Prothrombin Time 13.1 Seconds (9.4-12.1)
[2017-12-30 23:18] LABS: Activated Partial Thrombo Time 36.8 Seconds (26.0-36.0)
[2017-12-30 23:21] LABS: Bilirubin,Urine Negative (Negative); Blood,Urine Negative (Negative); Clarity,Urine Cloudy (Clear); Color,Urine Yellow (Yellow); Glucose,Urine (UA) Normal (Normal); Ketones,Urine Negative (Negative); Leukocyte Esterase,Urine Negative (Negative); Nitrite,Urine Negative (Negative); Protein,Urine 30 mg/dL (Neg-Trace); Urobilinogen,Urine Normal (Normal)
[2017-12-30 23:24] LABS: Bacteria,Urine None Seen per hpf (None-Few); Squamous Epithelial Cell,Urine Many per lpf (None-Few); WBC,Urine 0-3 per hpf (0-3)
[2017-12-30 23:31] LABS: Alanine Aminotransferase 11 Units/L (7-52); Albumin 4.2 g/dL (3.5-5.7); Albumin/Globulin Ratio 1.6 (1.1-2.2); Alkaline Phosphatase 90 Units/L (34-104); Aspartate Amino Transferase 16 Units/L (13-39); BUN/Creatinine Ratio 35 (6-26); Bilirubin,Total 0.6 mg/dL (0.3-1.0); Blood Urea Nitrogen 78 mg/dL (8-23); Calcium 9.3 mg/dL (8.6-10.3); Carbon Dioxide 42 mEq/L (23-29); Chloride 55 mEq/L (98-107); Globulin 2.7 g/dL (2.4-3.5); Glucose 103 mg/dL (70-105); Osmolality,Calculated 254 (280-300); Potassium 2.7 mEq/L (3.5-5.1); Sodium 110 mEq/L (136-145); Total Protein 6.9 g/dL (6.4-8.9); eGFR For African Americans 36 (> 60); eGFR For Non-African Americans 30 (> 60)
[2017-12-30 23:34] LABS: Hyaline Casts,Urine Moderate per lpf (None-Few)
[2017-12-30 23:38] LABS: Troponin I < 0.03 ng/mL (< 0.04)
[2017-12-31] MEDS ORDERED: Potassium Chloride Elixir 20 MEQ/15 ML UDC PO ONE (00:55)
[2017-12-31] MEDS ORDERED: Ondansetron 4 MG/2 ML VIAL ONE (03:58)
[2017-12-31] MEDS: Ondansetron 4 MG/2 ML VIAL IVP ONE (04:03)
[2017-12-31] MEDS ORDERED: Ampicillin/Sulbactam 3,000 MG in 0.9 % Sodium Chloride Mini Bag 100 ML IVPB ONE (04:30)
[2017-12-31] MEDS ORDERED: 0.9 % Sodium Chloride 1,000 ML IVC ONE (06:25)
[2017-12-31 07:50] LABS: Calcium 9.5 mg/dL (8.6-10.3); Potassium 2.6 mEq/L (3.5-5.1)
--- NOTE | 2017-12-31 08:37 | Nephrology Consult Note ---
Date of Encounter: 12/31/17 Time of Encounter: 08:35 Assessment and Plan (1) Acute renal failure Current Visit: Yes Status: Acute The patient presents with acute kidney injury with associated hyponatremia hypokalemia and metabolic alkalosis in the setting of a two-week history of nausea vomiting, decreased oral intake, and intermittent increased ostomy output. The patient should be placed on normal saline IV at a rate of 100-125 mL per hour. He should have a lecture lites monitored every 4 hours. He should also receive potassium supplementation. He also needs a renal ultrasound to better define the mild dilatation noted of the collecting system of the left kidney. Qualifiers: Acute renal failure type: with other specified pathological lesion Qualified Code(s): N17.8 - Other acute kidney failure (2) Hyponatremia Current Visit: Yes Status: Acute (3) Hypokalemia Current Visit: Yes Status: Acute (4) Small bowel obstruction Current Visit: Yes Status: Acute History of Present Illness - History of Present Illness This is a 67-year-old male presented to emergency room with a two-week history of nausea vomiting, decreased oral intake, and intermittent increased colostomy output. He was also having abdominal pain during that time. He has a history of a subtotal colectomy with ostomy about 3-1/2 years ago because of bowel perforation. 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 Evaluation in the emergency room reviewed that the patient had acute kidney injury with associated severe hyponatremia and hypokalemia. Sodium was 110 with a potassium of 2.7 and creatinine 2.21. In December 2016 on electrolytes and renal function were normal. Patient has no past history of renal disease or electrolyte disturbances. It is unclear what his home medications are. Currently the patient is somewhat somnolent but awakens easily and is able to answer questions and appears otherwise alert and oriented. CT scan done in the emergency room showed evidence of a small bowel obstruction as well as mild dilatation of the collecting system of the left kidney. CT of the chest showed some central emphysematous changes as well as a pulmonary nodule. The patient does have a history of COPD and I believe is a current smoker. Other past medical history includes atrial fibrillation, hypertension, and hypercholesterolemia. Past Med Surg Social Fam HX - Past Medical History Medical history: atrial fibrillation, COPD, hyperlipidemia, hypertension, myocardial infarction, other Additional medical history: Perforated Bowel Psychiatric history: no psych history - Past Surgical History Surgical History: colostomy - Social History Smoking Status: Current every day smoker Smokeless Tobacco Status: No Alcohol use: none Drug use: none Medications and Allergies Acetaminophen [Tylenol] 1,000 mg PO TID PRN 01/16/17 [History] Albuterol Sulfate [Albuterol Inhaler] 2 puff IH QID PRN 01/16/17 [History] Aloe Vera/Collagen [Aloe [place] Cleansing Foam] 1 appl TP DAILY 01/16/17 [History ] Ascorbate Calcium [Vitamin C] 500 mg PO DAILY 01/16/17 [History] Carboxymethylcellulose Sodium [Refresh Liquigel] 1 drop BOTH EYES QID 01/16/17 [ History] Docusate [Colace] 100 mg PO BID 01/16/17 [History] Ferrous Sulfate 325 mg PO BIDWM 01/16/17 [History] Furosemide [Lasix] 40 mg PO DAILY 01/16/17 [History] Gabapentin [Neurontin] 600 mg PO TID 01/16/17 [History] L. Acidophilus/Pectin, [place] [Acidophilus Probiotic Capsule] 1 each PO TIDAC [History] Metoprolol [Lopressor] 50 mg PO BID 01/16/17 [History] Multivitamin [Multi-Day Vitamins] 1 each PO DAILY 01/16/17 [History] Rivaroxaban [Xarelto] 20 mg PO DAILY 01/16/17 [History] Simvastatin [Zocor] 20 mg PO HS 01/16/17 [History] Sod Chloride/B-6/Zinc Acet/Ca [Wound Cleanser] 3 - 5 spray IR DAILY 01/16/17 [ History] Vit C/E/Zn/Coppr/Lutein/Zeaxan [Preservision [place] 2 Softgel] 1 cap PO BID 01/16 [History] raNITIdine HCl [Zantac] 150 mg PO BID 01/16/17 [History] Piperacillin/Tazobactam [Zosyn] 3.375 gm IVPB Q8HR 3 Days vial 01/23/17 [Rx] predniSONE [PredniSONE] See Taper PO DAILY #35 tablet 01/23/17 [Rx] 3 Allergy/AdvReac Type Severity Reaction Status Date / Time latex AdvReac See Verified 06/20/17 21:16 Comments Review of Systems Constitutional: anorexia, weakness Eyes: bilateral: blurred vision (patient denies), diplopia (patient denies) Nose, mouth and throat: no dizziness, no headache(s) Cardiovascular: dyspnea, dyspnea on exertion, irregular heart rhythm Respiratory: dyspnea, dyspnea on exertion Gastrointestinal: as per HPI, abdominal pain, nausea, vomiting Genitourinary Male: as per HPI Musculoskeletal: no muscle weakness, no numbness Neurological: weakness Psychiatric: no depression, no difficulty concentrating Endocrine: as per HPI Hematologic/Lymphatic: no easy bruising, no lymphadenopathy Exam - Vital Signs Vital signs: Initial Vital Signs Temp Pulse Resp BP Pulse Ox 98.0 F 63 27 124/71 95 12/30/17 22:34 12/30/17 22:34 12/30/17 22:34 12/30/17 22:34 12/30/17 22:34 - General Appearance Exam: The patient was seen and examined in the emergency room. He is alert and oriented. He is in no acute distress. He appears chronically ill. Blood pressure is 119/63. Temperature 90.8 degrees Fahrenheit. Lungs diminished breath sounds anteriorly. Heart irregular rate and rhythm. Abdomen shows diminished bowel sounds. Abdomen is soft although there is some generalized tenderness. There is no guarding nor rigidity. A colostomy is in place. A cutaneous fistula is also noted. There is no lower extremity edema. Results - Lab Results 12/30/17 22:40 12/31/17 06:55 Most recent lab results Calcium 9.5 mg/dL (8.6-10.3) 12/31/17 06:55 Consult Discharge Plan - Plan [facility]errals: [facility] [Primary Care Provider] -
[2017-12-31] MEDS: 0.9 % Sodium Chloride w KCl 20 MEQ/1,000 ML MLS IVC SCH ×2 (09:03→19:30)
--- NOTE | 2017-12-31 09:04 | Event Note ---
Date of Encounter: 12/31/17 Time of Encounter: 09:03 Dr. Rose was consulted per the ER this AM; however the patient follows with Dr. Jung and would like to continue to follow with Dr. Jung. The consult to [place] was likely an inadvertent error and the primary team has been notified. Dr. Zhang will consult Dr. Jung.
--- NOTE | 2017-12-31 09:57 | Pulmonology History & Physical ---
<Haydee Ross M - Last Filed: 12/31/17 13:14> Date of Encounter: 12/31/17 History of Present Illness HPI: Mr. Wolf is a 67 year old male Medications and Allergies Acetaminophen [Tylenol] 1,000 mg PO TID PRN 01/16/17 [History] Albuterol Sulfate [Albuterol Inhaler] 2 puff IH QID PRN 01/16/17 [History] Aloe Vera/Collagen [Aloe [place] Cleansing Foam] 1 appl TP DAILY 01/16/17 [History ] Ascorbate Calcium [Vitamin C] 500 mg PO DAILY 01/16/17 [History] Docusate [Colace] 100 mg PO BID 01/16/17 [History] Furosemide [Lasix] 40 mg PO DAILY 01/16/17 [History] Gabapentin [Neurontin] 600 mg PO TID 01/16/17 [History] Metoprolol [Lopressor] 50 mg PO BID 01/16/17 [History] Multivitamin [Multi-Day Vitamins] 1 each PO DAILY 01/16/17 [History] Rivaroxaban [Xarelto] 20 mg PO DAILY 01/16/17 [History] Simvastatin [Zocor] 20 mg PO HS 01/16/17 [History] Sod Chloride/B-6/Zinc Acet/Ca [Wound Cleanser] 3 - 5 spray IR DAILY 01/16/17 [ History] Vit C/E/Zn/Coppr/Lutein/Zeaxan [Preservision Areds 2 Softgel] 1 cap PO BID 01/16 [History] raNITIdine HCl [Zantac] 150 mg PO BID 01/16/17 [History] Albuterol Neb [Proventil Neb] 2.5 mg IH Q4HR 12/31/17 [History] Budesonide/Formoterol 80/4.5 [Symbicort 80/4.5] 1 puff IH BID 12/31/17 [History ] Buprenorphine [Butrans] 1 patch TD Q7D 12/31/17 [History] Cyanocobalamin (Vitamin B-12) [Vitamin B-12] 1,000 mcg SL DAILY 12/31/17 [ History] Diclofenac Sodium [Voltaren] 1 appl TP QID 12/31/17 [History] Lactobacillus Acidophilus [Acidophilus Lactobacillus] 1 cap PO DAILY 12/31/17 [ History] Nystatin POWDER [Nystop] 1 appl TP BID 12/31/17 [History] Tramadol HCl [Ultram] 50 mg PO Q6H PRN 12/31/17 [History] Triamcinolone Acet 0.1% CRM [Kenalog] 1 appl TP BID 12/31/17 [History] Zinc Sulfate [Zinc-15] 50 mg PO BID 12/31/17 [History] 3 Allergy/AdvReac Type Severity Reaction Status Date / Time latex AdvReac See Verified 01/16/17 21:16 Comments All Systems: The remainder of the systems were reviewed and are negative Physical Examination Vital Signs: Vital Signs, Last 4 Hours Temp Pulse Resp BP Pulse Ox 12/31/17 12:29 97.0 F L 59 18 116/62 100 12/31/17 12:00 97.0 F L 12/31/17 11:00 60 18 112/58 100 12/31/17 10:28 61 18 109/62 100 Results - Laboratory Findings CBC and BMP: 12/31/17 10:24 12/31/17 09:35 PT/INR, D-dimer PT 13.1 Seconds (9.4-12.1) H 12/30/17 22:40 Abnormal lab findings: Abnormal lab results WBC 15.1 K/mcL (4.3-11.1) H 12/31/17 10:24 MCV 77.6 fL (83.0-100.0) L 12/31/17 10:24 MCH 27.9 pg (28.0-33.3) L 12/31/17 10:24 MCHC 35.9 g/dL (31.6-35.5) H 12/31/17 10:24 Neutrophils # 10.7 K/mcL (1.6-8.9) H 12/31/17 10:24 Monocytes # 1.6 K/mcL (0.0-1.3) H 12/31/17 10:24 PT 13.1 Seconds (9.4-12.1) H 12/30/17 22:40 APTT 36.8 Seconds (26.0-36.0) H 12/30/17 22:40 Sodium 115 mEq/L (136-145) L* 12/31/17 09:35 Potassium 2.5 mEq/L (3.5-5.1) L* 12/31/17 09:35 Chloride 57 mEq/L (98-107) L 12/31/17 09:35 Carbon Dioxide 44 mEq/L (23-29) H* 12/31/17 09:35 BUN 72 mg/dL (8-23) H 12/31/17 09:35 Creatinine 2.04 mg/dL (0.70-1.30) H 12/31/17 09:35 Est GFR ( Amer) 40 (> 60) L 12/31/17 09:35 Est GFR (Non-Af Amer) 33 (> 60) L 12/31/17 09:35 BUN/Creatinine Ratio 35 (6-26) H 12/31/17 09:35 Calculated Osmolality 261 (280-300) L 12/31/17 09:35 Urine Clarity Cloudy (Clear) A 12/30/17 23:12 Urine Protein 30 mg/dL (Neg-Trace) H 12/30/17 23:12 Urine Microscopic RBC 5-15 per hpf (0-3) H 12/30/17 23:12 Ur Squamous Epith Cells Many per lpf (None-Few) H 12/30/17 23:12 Hyaline Casts Moderate per lpf (None-Few) H 12/30/17 23:12 Urine Osmolality 269 mOsm/kg (300-1090) L 12/31/17 11:00 Stool Occult Blood Positive (Negative) A 12/30/17 23:30 - Attending Attestation I examined this patient and my medical decision-making was reviewed with the Resident Physician. I agree with the documented findings, disposition and treatment plan as described except to the extent set forth below. Patient seen and examined. Labs, radiology, chart personally reviewed. Agree with resident's history and physical, assessment, plan with following comments: ETHOLOGIST: Patient follows commands, Pulmonary: Acceptable oxygenation and ventilation Cardiovascular: stable GI: Nutrition per dietary and GI prophylaxis per routine. Surgery consultation and patient has significant history of abdominal surgeries and lactic acid is not concerning for ischemic bowel. Heme: DVT prophylaxis per routine ID: Continue antibiotics and plan to de-escalation Renal; urine out put and renal funtion reviewed. Patient with acute renal failure and agree with the head girls golf coach recommendation. There is significant evidence of electrolytes abnormalities and with aggressive fluid resuscitation while monitoring sodium level improvement. Endorcine: blood glucose is monitored Lines: all lines checked and no evidence of infections Skin: skin care to prevent pressure ulcers per nursing routine care <Cata Farias - Last Filed: 12/31/17 21:28> Date of Encounter: 12/31/17 Time of Encounter: 09:56 Assessment and Plan (1) Small bowel obstruction Current visit: Yes Status: Acute Pt known to Dr. Jung CT abdomen/pelvis: possible closed loop in mid abdomen; transition point inferior to iliac bifurcation; no free air Plan Consult to Dr. Jung Bowel rest, NPO NG tube Further management per surgery (2) Hyponatremia Current visit: Yes Status: Acute Sodium 110 on presentation, now 115 Possibly d/t recent high output from ostomy Plan IV normal saline @ 100-125mL per hour Electrolyte monitor Q4H Nephrology following (3) Hypokalemia Current visit: Yes Status: Acute Potassium currently 2.5, was 2.7 on presentation. Plan Cardiac monitoring Electrolytes Q4H Replace per electrolyte protocol (4) Acute renal failure Current visit: Yes Status: Acute Serum Cr on presentation 2.21, now 2.04 No previous h/o renal disease or electrolyte disturbances Nephrology consult Dr. Faith Mildly dilated left renal collecting system, possibly d/t external compression by distended small bowel loops Plan Continue management per Dr. Faith Renal function panel Q4H IV normal saline @ 100-125mL per hour Potassium repletion Retroperitoneal U/S Qualifiers: Acute renal failure type: with other specified pathological lesion Qualified Code(s): N17.8 - Other acute kidney failure (5) Metabolic alkalosis Current visit: Yes Status: Acute Bicarb currently 44, on presentation was 42 Plan Check electrolytes Q4H (6) DVT prophylaxis Current visit: Yes Status: Acute Subcutaneous heparin Q12H while NPO History of Present Illness Chief complaint: N/V, increased colostomy output HPI: Mr. 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 Pt is somnolent, but does open eyes and respond to questions. Workup in the emergency department showed an acute kidney injury with serum creatinine 2.21 and associated severe hyponatremia (110) and hypokalemia (2.7). CT abdomen pelvis findings compatible with small bowel obstruction, the transition point just inferior to iliac bifurcation. CT also showed mild dilation of left renal collecting system without obstructed calculus possibly from compression of left ureter by distended small bowel loops. Past Med Surg Social Fam HX - Past Medical History Medical history: atrial fibrillation, COPD, hyperlipidemia, hypertension, myocardial infarction, other Additional medical history: Perforated Bowel Psychiatric history: no psych history - Past Surgical History Surgical History: colostomy - Social History Smoking Status: Current every day smoker Smokeless Tobacco Status: No Alcohol use: none Drug use: none All Systems: The remainder of the systems were reviewed and are negative - Constitutional Constitutional: as per HPI, anorexia, weakness - Cardiovascular Cardiovascular: dyspnea, irregular heart rhythm - Respiratory Respiratory: dyspnea, dyspnea on exertion - Gastrointestinal Gastrointestinal: as per HPI, abdominal pain, nausea, vomiting - Neurological Neurological: weakness Physical Examination Vital Signs: Vital Signs, Last 4 Hours Pulse Pulse Ox 12/31/17 08:27 104 100 General appearance: no acute distress, asleep ENT: other (NG tube) Effort: normal Inspection: normal Auscultation: bilateral: wheezes Cardiovascular: irregular rhythm Results - Laboratory Findings CBC and BMP: 12/31/17 15:15 12/31/17 17:21 PT/INR, D-dimer PT 13.1 Seconds (9.4-12.1) H 12/30/17 22:40 Abnormal lab findings: Abnormal lab results WBC 17.9 K/mcL (4.3-11.1) H 12/30/17 22:40 MCV 76.9 fL (83.0-100.0) L 12/30/17 22:40 MCHC 36.5 g/dL (31.6-35.5) H 12/30/17 22:40 Neutrophils # 13.2 K/mcL (1.6-8.9) H 12/30/17 22:40 Monocytes # 1.7 K/mcL (0.0-1.3) H 12/30/17 22:40 PT 13.1 Seconds (9.4-12.1) H 12/30/17 22:40 APTT 36.8 Seconds (26.0-36.0) H 12/30/17 22:40 Sodium 112 mEq/L (136-145) L* 12/31/17 06:55 Potassium 2.6 mEq/L (3.5-5.1) L 12/31/17 06:55 Chloride 55 mEq/L (98-107) L 12/31/17 06:55 Carbon Dioxide 44 mEq/L (23-29) H* 12/31/17 06:55 BUN 75 mg/dL (8-23) H 12/31/17 06:55 Creatinine 2.06 mg/dL (0.70-1.30) H 12/31/17 06:55 Est GFR ( Amer) 39 (> 60) L 12/31/17 06:55 Est GFR (Non-Af Amer) 32 (> 60) L 12/31/17 06:55 BUN/Creatinine Ratio 36 (6-26) H 12/31/17 06:55 POC Glucose 109 mg/dL (70-99) H 12/31/17 08:19 Calculated Osmolality 256 (280-300) L 12/31/17 06:55 Urine Clarity Cloudy (Clear) A 12/30/17 23:12 Urine Protein 30 mg/dL (Neg-Trace) H 12/30/17 23:12 Urine Microscopic RBC 5-15 per hpf (0-3) H 12/30/17 23:12 Ur Squamous Epith Cells Many per lpf (None-Few) H 12/30/17 23:12 Hyaline Casts Moderate per lpf (None-Few) H 12/30/17 23:12 Stool Occult Blood Positive (Negative) A 12/30/17 23:30
[2017-12-31 10:53] LABS: Basophils # 0.1 K/mcL (0.0-0.2); Basophils % 0.4 %; Eosinophils # 0.4 K/mcL (0.0-0.6); Eosinophils % 2.3 %; Hematocrit 42.3 % (37.5-50.1); Hemoglobin 15.2 g/dL (12.9-16.9); Immature Granulocytes % 0.9 % (0-4); Lymphocytes # 2.3 K/mcL (0.6-4.6); Lymphocytes % 15.1 %; Mean Corpuscular HGB Conc 35.9 g/dL (31.6-35.5); Mean Corpuscular Hemoglobin 27.9 pg (28.0-33.3); Mean Corpuscular Volume 77.6 fL (83.0-100.0); Mean Platelet Volume 11.3 fL (9.4-12.4); Monocytes # 1.6 K/mcL (0.0-1.3); Monocytes % 10.3 %; Neutrophils # 10.7 K/mcL (1.6-8.9); Platelet Count 154 K/mcL (140-400); Red Blood Count 5.45 M/mcL (4.19-5.50); Red Cell Distribution Width 13.3 % (11.5-14.5)
[2017-12-31 11:11] LABS: Albumin 4.2 g/dL (3.5-5.7); Calcium 9.3 mg/dL (8.6-10.3); Phosphorous 3.2 mg/dL (2.7-4.5); Potassium 2.5 mEq/L (3.5-5.1)
[2017-12-31 13:03] LABS: Chloride,Urine < 15 mEq/L; Creatinine,Urine 55 mg/dL; Potassium,Urine 16.3 mEq/L; Sodium, Urine < 10.0 mEq/L
[2017-12-31 14:28] LABS: Albumin 3.7 g/dL (3.5-5.7); Calcium 8.4 mg/dL (8.6-10.3); Phosphorous 2.7 mg/dL (2.7-4.5)
[2017-12-31 14:40] LABS: Magnesium 2.4 mg/dL (1.6-2.6)
[2017-12-31 15:59] LABS: Basophils % 0.3 %; Eosinophils # 0.2 K/mcL (0.0-0.6); Hemoglobin 15.1 g/dL (12.9-16.9); Immature Granulocytes % 0.6 % (0-4); Lymphocytes % 18.2 %; Mean Corpuscular Hemoglobin 28.7 pg (28.0-33.3); Mean Corpuscular Volume 79.7 fL (83.0-100.0); Mean Platelet Volume 11.9 fL (9.4-12.4); Monocytes % 9.1 %; Neutrophils # 7.6 K/mcL (1.6-8.9); Platelet Count 145 K/mcL (140-400); Red Blood Count 5.27 M/mcL (4.19-5.50); Red Cell Distribution Width 13.1 % (11.5-14.5); Segmented Neutrophils % 69.8 %
[2017-12-31] MEDS: *HR* Heparin 5,000 UNIT/ML VIAL SQ SCH (16:54)
--- NOTE | 2017-12-31 17:12 | Electrocardiograph Report ---
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
[2017-12-31 18:02] LABS: Albumin 3.8 g/dL (3.5-5.7); Calcium 8.7 mg/dL (8.6-10.3); Phosphorous 2.1 mg/dL (2.7-4.5); Potassium 2.9 mEq/L (3.5-5.1)
[2017-12-31 22:29] LABS: Albumin 3.8 g/dL (3.5-5.7); BUN/Creatinine Ratio 40 (6-26); Blood Urea Nitrogen 53 mg/dL (8-23); Calcium 8.9 mg/dL (8.6-10.3); Carbon Dioxide 40 mEq/L (23-29); Chloride 73 mEq/L (98-107); Glucose 88 mg/dL (70-105); Osmolality,Calculated 272 (280-300); Phosphorous 1.7 mg/dL (2.7-4.5); Potassium 3.4 mEq/L (3.5-5.1); Sodium 124 mEq/L (136-145); eGFR For African Americans > 60 (> 60); eGFR For Non-African Americans 54 (> 60)
[2017-12-31] MEDS: D5% in 0.45% NACL w KCl 20 MEQ/1,000 ML MLS IVC SCH (23:58)
[2018-01-01 01:56] LABS: Albumin 3.7 g/dL (3.5-5.7); BUN/Creatinine Ratio 41 (6-26); Blood Urea Nitrogen 47 mg/dL (8-23); Calcium 8.8 mg/dL (8.6-10.3); Carbon Dioxide 36 mEq/L (23-29); Chloride 76 mEq/L (98-107); Glucose 101 mg/dL (70-105); Osmolality,Calculated 274 (280-300); Phosphorous 1.6 mg/dL (2.7-4.5); Potassium 3.2 mEq/L (3.5-5.1); Sodium 126 mEq/L (136-145); eGFR For African Americans > 60 (> 60); eGFR For Non-African Americans > 60 (> 60)
[2018-01-01] MEDS: *HR* Heparin 5,000 UNIT/ML VIAL SQ SCH ×2 (05:03→17:54)
[2018-01-01 06:21] LABS: Albumin 3.9 g/dL (3.5-5.7); BUN/Creatinine Ratio 40 (6-26); Blood Urea Nitrogen 41 mg/dL (8-23); Carbon Dioxide 40 mEq/L (23-29); Chloride 77 mEq/L (98-107); Glucose 123 mg/dL (70-105); Osmolality,Calculated 277 (280-300); Phosphorous 1.5 mg/dL (2.7-4.5); Potassium 3.5 mEq/L (3.5-5.1); Sodium 128 mEq/L (136-145); eGFR For African Americans > 60 (> 60); eGFR For Non-African Americans > 60 (> 60)
--- NOTE | 2018-01-01 07:25 | Pulmonology Progress Note ---
<AndrewfanyHaydee vilchis M - Last Filed: 01/01/18 09:50> Date of Encounter: 01/01/18 Objective PUL Vital signs: Last Vital Signs Temp 98.7 F 01/01/18 08:00 Pulse 84 01/01/18 09:00 Resp 16 01/01/18 09:00 BP 136/67 01/01/18 09:00 Pulse Ox 100 01/01/18 09:00 Results - Laboratory Findings CBC and BMP: 01/01/18 09:02 01/01/18 05:25 PT/INR, D-dimer PT 13.1 Seconds (9.4-12.1) H 12/30/17 22:40 Abnormal lab findings: Abnormal lab results MCV 81.3 fL (83.0-100.0) L 01/01/18 09:02 PT 13.1 Seconds (9.4-12.1) H 12/30/17 22:40 APTT 36.8 Seconds (26.0-36.0) H 12/30/17 22:40 Sodium 128 mEq/L (136-145) L 01/01/18 05:25 Chloride 77 mEq/L (98-107) L 01/01/18 05:25 Carbon Dioxide 40 mEq/L (23-29) H* 01/01/18 05:25 BUN 41 mg/dL (8-23) H 01/01/18 05:25 BUN/Creatinine Ratio 40 (6-26) H 01/01/18 05:25 Glucose 123 mg/dL (70-105) H 01/01/18 05:25 Calculated Osmolality 277 (280-300) L 01/01/18 05:25 Phosphorus 1.5 mg/dL (2.7-4.5) L 01/01/18 05:25 Urine Clarity Cloudy (Clear) A 12/30/17 23:12 Urine Protein 30 mg/dL (Neg-Trace) H 12/30/17 23:12 Urine Microscopic RBC 5-15 per hpf (0-3) H 12/30/17 23:12 Ur Squamous Epith Cells Many per lpf (None-Few) H 12/30/17 23:12 Hyaline Casts Moderate per lpf (None-Few) H 12/30/17 23:12 Urine Osmolality 269 mOsm/kg (300-1090) L 12/31/17 11:00 Stool Occult Blood Positive (Negative) A 12/30/17 23:30 - Clinical Findings Intake & Output: Intake & Output 12/31/17 01/01/18 01/01/18 23:59 07:59 15:59 Intake Total 1400 / 1400 300 / 300 Output Total 2200 / 2200 1350 / 1350 Balance -800 / -800 -1050 / -1050 Weight 75.8 kg Consult Discharge Plan - Plan [facility]errals: [facility] [Primary Care Provider] - - Attending Attestation I examined this patient and my medical decision-making was reviewed with the Resident Physician. I agree with the documented findings, disposition and treatment plan as described except to the extent set forth below. Patient seen and examined. Labs, radiology, chart personally reviewed. Agree with resident's history and physical, assessment, plan with following comments: EXTERNAL AUDITOR: Patient follows commands, he should not is more awake Pulmonary: Acceptable oxygenation and ventilation Cardiovascular: stable GI: Nutrition per dietary and GI prophylaxis per routine. Surgery follow-up. Patient may need TPN. Heme: DVT prophylaxis per routine ID: Continue antibiotics and plan to de-escalation Renal; urine out put and renal funtion reviewed. Continue monitoring sodium and fluid to be continued Endorcine: blood glucose is monitored Lines: all lines checked and no evidence of infections Skin: skin care to prevent pressure ulcers per nursing routine care Patient may be transferred out of ICU <Cata Farias - Last Filed: 01/01/18 15:37> Date of Encounter: 01/01/18 Time of Encounter: 07:25 Assessment and Plan (1) Small bowel obstruction Current Visit: Yes Status: Acute CT abdomen/pelvis: possible closed loop in mid abdomen; transition point inferior to iliac bifurcation; no free air. Good colostomy output today per RN. Plan 1. Clear liquids, may eventually require TPN 2. Clamp NG tube, do not remove 3. Will follow surgery's recommendations (2) Hyponatremia Current Visit: Yes Status: Acute Improving Na 128 this morning (Na 110 on presentation) Possibly d/t recent high output from ostomy Plan Transfer out of ICU IV D5% 0.45%NS with 20mEq K @ 75mL/hr Electrolyte monitor Q4H Nephrology following, recommendations appreciated (3) Hypokalemia Current Visit: Yes Status: Acute Improved K 3.5 this morning, 2.7 on presentation. Plan Cardiac monitoring Electrolytes Q4H Replace PRN (4) Acute renal failure Current Visit: Yes Status: Acute Improving Serum Cr 1.02 this morning No previous h/o renal disease or electrolyte disturbances CT abd/pelvis showed mildly dilated left renal collecting system, possibly d/t external compression by distended small bowel loops Retroperitoneal U/S showed mild pelvocaliectasis of left kidney, otherwise unremarkable kidney morphology Plan Continue management per Dr. 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 Pt endorses no complaints. Responds to questions, but falls asleep quickly--not significantly changed from yesterday. Objective PUL Vital signs: Last Vital Signs Temp 98.0 F 01/01/18 04:23 Pulse 89 01/01/18 06:00 Resp 14 01/01/18 06:00 BP 117/63 01/01/18 06:00 Pulse Ox 96 01/01/18 06:00 General: No acute distress, lethargic HEENT: head normocephalic/atraumatic, PERRL, moist mucus membranes, Neck: Supple Cardio: RRR, no murmurs, +S1/S2 Pulm: CTAB, no wheezing, rhonchi, rales. Normal respiratory effort, nasal cannula Abdomen: multiple surgical scars, right sided colostomy, midline lower abdomen fistula with ostomy bag, soft, central abdominal tenderness, BS+, no rebound, rigidity, guarding, distention, Extremities: No LE edema, no calf tenderness, no cyanosis Neuro: AAOx3, no focal deficit, no speech deficit, moves extremities spontaneously, answers questions appropriately MSK: Strength 5/5 throughout, no visible deformities Psych: Answers questions appropriately. Cooperative with exam General appearance: no acute distress, lethargic Results - Laboratory Findings CBC and BMP: 01/01/18 09:02 01/01/18 09:02 PT/INR, D-dimer PT 13.1 Seconds (9.4-12.1) H 12/30/17 22:40 Abnormal lab findings: Abnormal lab results MCV 79.7 fL (83.0-100.0) L 12/31/17 15:15 MCHC 36.0 g/dL (31.6-35.5) H 12/31/17 15:15 PT 13.1 Seconds (9.4-12.1) H 12/30/17 22:40 APTT 36.8 Seconds (26.0-36.0) H 12/30/17 22:40 Sodium 128 mEq/L (136-145) L 01/01/18 05:25 Chloride 77 mEq/L (98-107) L 01/01/18 05:25 Carbon Dioxide 40 mEq/L (23-29) H* 01/01/18 05:25 BUN 41 mg/dL (8-23) H 01/01/18 05:25 BUN/Creatinine Ratio 40 (6-26) H 01/01/18 05:25 Glucose 123 mg/dL (70-105) H 01/01/18 05:25 Calculated Osmolality 277 (280-300) L 01/01/18 05:25 Phosphorus 1.5 mg/dL (2.7-4.5) L 01/01/18 05:25 Urine Clarity Cloudy (Clear) A 12/30/17 23:12 Urine Protein 30 mg/dL (Neg-Trace) H 12/30/17 23:12 Urine Microscopic RBC 5-15 per hpf (0-3) H 12/30/17 23:12 Ur Squamous Epith Cells Many per lpf (None-Few) H 12/30/17 23:12 Hyaline Casts Moderate per lpf (None-Few) H 12/30/17 23:12 Urine Osmolality 269 mOsm/kg (300-1090) L 12/31/17 11:00 Stool Occult Blood Positive (Negative) A 12/30/17 23:30 - Clinical Findings Intake & Output: Intake & Output 12/31/17 12/31/17 01/01/18 15:59 23:59 07:59 Intake Total 300 / 300 1400 / 1400 300 / 300 Output Total 225 / 225 2200 / 2200 1150 / 1150 Balance 75 / 75 -800 / -800 -850 / -850 Weight 75.8 kg
[2018-01-01] MEDS ORDERED: Potassium Phosphate 44 MEQ in 0.9 % Sodium Chloride 250 ML IVPB PRN ×2 (07:43→13:14)
--- NOTE | 2018-01-01 08:18 | Nephrology Progress Note ---
Date of Encounter: 01/01/18 Time of Encounter: 08:16 - Assessment and Plan (1) Acute renal failure Current Visit: Yes Status: Acute Patient has acute kidney injury with associated hyponatremia and metabolic alkalosis related to nausea vomiting and small bowel obstruction. His hyponatremia and acute kidney injury has improved with administration of IV normal saline. The normal saline should be continued so that hopefully his metabolic alkalosis will start to improve his well. He is hypophosphatemic and currently receiving phosphorus supplementation. Renal ultrasound was unremarkable. Qualifiers: Acute renal failure type: with other specified pathological lesion Qualified Code(s): N17.8 - Other acute kidney failure (2) Hyponatremia Current Visit: Yes Status: Acute (3) Hypokalemia Current Visit: Yes Status: Acute (4) Small bowel obstruction Current Visit: Yes Status: Acute Subjective Interval history: Patient voices no new complaints today. Sodium is up to 128. Creatinine is improved on 1.02. He still has a lot of NG drainage and subsequent metabolic alkalosis. Objective - Vital Signs Vital signs: Vital Signs Temp Pulse Resp BP Pulse Ox 01/01/18 07:53 98.7 F 01/01/18 06:00 89 14 117/63 96 01/01/18 05:00 87 16 136/61 99 01/01/18 04:23 98.0 F 01/01/18 04:00 75 14 119/59 100 01/01/18 03:55 75 01/01/18 03:00 76 16 137/62 99 01/01/18 02:00 80 16 113/61 100 01/01/18 01:00 85 16 139/77 99 01/01/18 00:00 97.7 F 70 16 118/56 97 12/31/17 23:40 70 16 124/59 97 12/31/17 22:15 67 14 146/67 100 12/31/17 21:00 65 16 128/63 100 12/31/17 20:46 98.1 F 12/31/17 20:00 71 16 133/69 98 12/31/17 19:45 68 12/31/17 19:43 64 16 113/60 99 12/31/17 18:00 63 16 128/63 100 12/31/17 17:00 62 16 139/69 99 12/31/17 16:00 97.8 F 60 16 127/62 100 12/31/17 15:00 65 16 126/80 98 12/31/17 14:00 58 16 96/42 97 12/31/17 13:00 58 18 96/42 100 12/31/17 12:29 97.0 F L 59 18 116/62 100 12/31/17 12:00 97.0 F L 12/31/17 11:00 60 18 112/58 100 12/31/17 10:28 61 18 109/62 100 12/31/17 08:27 104 100 Intake and Output 12/31/17 01/01/18 01/01/18 23:59 07:59 15:59 Intake Total 1400 / 1400 300 / 300 Output Total 2200 / 2200 1350 / 1350 Balance -800 / -800 -1050 / -1050 Intake: IV Fluids 1400 / 1400 300 / 300 KCl 20 mEq in 0.9% Sodium 1000 / 1000 Chloride 20 meq In 1,000 ml @ 100 mls/hr IVC .Q10H ASHLEY Rx#: [id number] Potassium Chloride 10 mEq/100mL 400 / 400 300 / 300 10 meq In 100 ml @ 100 mls/hr IVPB Q1H PRN Rx#:[id number] Output: Stool 50 / 50 0 / 0 Straight Cath 300 / 300 Catheter 1150 / 1150 550 / 550 Gastric Drainage 1000 / 1000 500 / 500 Other: Stool Consistency loose Stool Color Brown Weight 75.8 kg Patient Weight 01/01/18 23:59 Weight 75.8 kg - General Appearance Exam: Patient is alert. In no acute distress. Blood pressure 117/63. Lungs clear to auscultation anteriorly. Heart regular rate and rhythm. Abdomen does show bowel sounds. Abdomen is soft. 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 There is no lower extremity swelling. An NG tube is in place. - Lab 12/31/17 15:15 01/01/18 05:25 Most recent lab results Calcium 9.0 mg/dL (8.6-10.3) 01/01/18 05:25 Phosphorus 1.5 mg/dL (2.7-4.5) L 01/01/18 05:25 Magnesium 2.5 mg/dL (1.6-2.6) 01/01/18 05:25 Urine Creatinine 55 mg/dL 12/31/17 11:00 Urine Sodium < 10.0 mEq/L 12/31/17 11:00 Consult Discharge Plan - Plan Referrals: [facility] [Primary Care Provider] -
[2018-01-01] MEDS ORDERED: Pantoprazole 40 MG VIAL IVP SCH (09:00)
[2018-01-01 09:29] LABS: Basophils % 0.4 %; Eosinophils # 0.2 K/mcL (0.0-0.6); Eosinophils % 1.8 %; Hematocrit 43.9 % (37.5-50.1); Hemoglobin 15.1 g/dL (12.9-16.9); Immature Granulocytes % 0.7 % (0-4); Lymphocytes # 1.4 K/mcL (0.6-4.6); Lymphocytes % 13.8 %; Mean Corpuscular HGB Conc 34.4 g/dL (31.6-35.5); Mean Corpuscular Volume 81.3 fL (83.0-100.0); Mean Platelet Volume 10.9 fL (9.4-12.4); Monocytes % 10.2 %; Neutrophils # 7.3 K/mcL (1.6-8.9); Platelet Count 141 K/mcL (140-400); Red Cell Distribution Width 13.6 % (11.5-14.5); Segmented Neutrophils % 73.1 %
[2018-01-01 10:04] LABS: Albumin 3.9 g/dL (3.5-5.7); BUN/Creatinine Ratio 40 (6-26); Blood Urea Nitrogen 35 mg/dL (8-23); Calcium 8.9 mg/dL (8.6-10.3); Carbon Dioxide 34 mEq/L (23-29); Chloride 80 mEq/L (98-107); Glucose 124 mg/dL (70-105); Osmolality,Calculated 277 (280-300); Phosphorous 1.3 mg/dL (2.7-4.5); Potassium 3.8 mEq/L (3.5-5.1); Sodium 129 mEq/L (136-145); eGFR For African Americans > 60 (> 60); eGFR For Non-African Americans > 60 (> 60)
--- NOTE | 2018-01-01 11:55 | Infectious Disease Consult ---
Date of Encounter: 01/01/18 Time of Encounter: 11:50 Assessment and Plan (1) SIRS (systemic inflammatory response syndrome) Status: Acute Assessment and plan: The patient had two SIRS criteria on admission. Likely secondary to SBO. No evidence of acute infectious process. Resolved. (2) Small bowel obstruction Status: Acute Assessment and plan: CT of the abdomen and pelvis showed SBO, likely secondary to adhesions. No evidence of perforation or free air. General surgery consulted and following. 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 CT of the abdomen and pelvis did not show any underlying abscess. The patient's SIRS criteria resolved without antibiotics. Low index of suspicion for infection given the clinical picture and CT scan results. Would not recommend culturing the drainage as it would likely grow normal gut jose david. Management per the general surgery team. No further recommendations from the ID team. We will sign off. No further recommendations from the ID team. Please re-consult if needed. (4) Acute kidney injury Status: Acute Assessment and plan: Likely secondary to N/V and dehydration. Resolved. Nephrology consulted and following. (5) Altered mental status Status: Acute Assessment and plan: Likely secondary to hyponatremia. CT head negative. Appears improved, but not sure what the patient's baseline is. Continue to monitor closely. Qualifiers: Altered mental status type: somnolence Qualified Code(s): R40.0 - Somnolence (6) Metabolic alkalosis Status: Acute (7) Hypokalemia Status: Acute Assessment and plan: Replacement and management per the primary and nephrology teams. (8) Hyponatremia Status: Acute Assessment and plan: Management per the primary and nephrology teams. (9) Hypophosphatemia Status: Acute Assessment and plan: Replacement and management per the primary and nephrology teams. (10) HTN (hypertension) Status: Chronic Qualifiers: Hypertension type: essential hypertension Qualified Code(s): I10 - Essential (primary) hypertension Infectious Disease HPI - Data of Consult Patient: new to practice Consult date: 01/01/18 Requesting Physician: Haydee Ross MD [facility] - Consult Narrative Reason for consult: Mucocutaneous fistula History of present illness: Mr. Wolf is a 67 year old male with a past medical history of hypertension, hyperlipidemia, A. fib, COPD, CAD/CA, and bowel perforation status post subtotal colectomy with colostomy with later development of a mucocutaneous fistula. The patient was noted to the hospital December 30 for hyponatremia, hypokalemia, small bowel obstruction, and acute renal failure. We are consulted January 01 for further recommendations for mucocutaneous fistula. Briefly, the patient is a 67-year-old male with past medical history as stated above. The patient states that he does not recall the events leading up to this hospitalization, therefore, most of the information is obtained from the medical record. Apparently, the patient presented to the emergency department on the day of admission with a 2 week history of nausea vomiting and abdominal pain. Upon arrival, the patient was afebrile and hemodynamically stable. He was noted to have some tachypnea with leukocytosis and acute kidney injury. His sodium level was 110 and potassium was 2.7. He had a urinalysis that was negative. Fecal occult blood test was positive. Blood cultures were obtained 2 sets and are no growth to date. CT of the chest, abdomen, and pelvis without contrast that revealed a small bowel obstruction and mildly dilated left renal collecting system. General surgery was consulted and recommended that an NG tube replaced and the patient had a repeat CT scan with contrast via the NG tube. It again demonstrated small bowel obstruction likely secondary to adhesions. He also had a CT of the head that was negative. He was admitted to the intensive care unit for further evaluation and treatment. Since admission, the patient has remained afebrile hemodynamically stable. His white blood cell count has normalized. Nephrology was consulted and continues to follow. His acute kidney injury has resolved. His hyponatremia and hypokalemia are improving. A retroperitoneal ultrasound that showed mild pelvocaliectasis of the left kidney, but was otherwise essentially negative. He has not been on any antibiotics since admission. Apparently, nursing staff reported some purulent drainage from his mucous cutaneous fistula. We have been asked to evaluate and make further recommendations. During my exam today, the patient states overall he feels fine. Reports chronic pain "everywhere." Denies nausea, vomiting, or diarrhea. States he is passing gas. Reports output from colostomy. Denies fevers, chills, or rigors. Denies oral thrush or skin lesions. Reports chronic, non-productive cough. Denies shortness of breath. The patient lives at home alone and has a home health nurse that comes in daily. He reports he smokes 2 packs of cigarettes per day. Denies alcohol or illicit drug use. CC: Haydee Ross MD Past Med Surg Social Fam HX - Past Medical History Medical history: atrial fibrillation, COPD, hyperlipidemia, hypertension, myocardial infarction, other Additional medical history: Perforated Bowel Psychiatric history: no psych history - Past Surgical History Surgical History: colostomy - Social History Smoking Status: Current every day smoker Packs per day: 2 Smokeless Tobacco Status: No Alcohol use: none Drug use: none Occupational status: unemployed Current living situation: Home - Independent Activity Level: Independent ambulation Recent Out of Country Travel Within the Last 8 Weeks: No Exposure or Possible Exposure to Illness During Travel: No Infectious Disease-CN:Meds Acetaminophen [Tylenol] 1,000 mg PO TID PRN 01/16/17 [History] Albuterol Sulfate [Albuterol Inhaler] 2 puff IH QID PRN 01/16/17 [History] Aloe Vera/Collagen [Aloe [place] Cleansing Foam] 1 appl TP DAILY 01/16/17 [History ] Ascorbate Calcium [Vitamin C] 500 mg PO DAILY 01/16/17 [History] Docusate [Colace] 100 mg PO BID 01/16/17 [History] Furosemide [Lasix] 40 mg PO DAILY 01/16/17 [History] Gabapentin [Neurontin] 600 mg PO TID 01/16/17 [History] Metoprolol [Lopressor] 50 mg PO BID 01/16/17 [History] Multivitamin [Multi-Day Vitamins] 1 each PO DAILY 01/16/17 [History] Rivaroxaban [Xarelto] 20 mg PO DAILY 01/16/17 [History] Simvastatin [Zocor] 20 mg PO HS 01/16/17 [History] Sod Chloride/B-6/Zinc Acet/Ca [Wound Cleanser] 3 - 5 spray IR DAILY 01/16/17 [ History] Vit C/E/Zn/Coppr/Lutein/Zeaxan [Preservision Areds 2 Softgel] 1 cap PO BID 01/16 [History] raNITIdine HCl [Zantac] 150 mg PO BID 01/16/17 [History] Albuterol Neb [Proventil Neb] 2.5 mg IH Q4HR 12/31/17 [History] Budesonide/Formoterol 80/4.5 [Symbicort 80/4.5] 1 puff IH BID 12/31/17 [History ] Buprenorphine [Butrans] 1 patch TD Q7D 12/31/17 [History] Cyanocobalamin (Vitamin B-12) [Vitamin B-12] 1,000 mcg SL DAILY 12/31/17 [ History] Diclofenac Sodium [Voltaren] 1 appl TP QID 12/31/17 [History] Lactobacillus Acidophilus [Acidophilus Lactobacillus] 1 cap PO DAILY 12/31/17 [ History] Nystatin POWDER [Nystop] 1 appl TP BID 12/31/17 [History] Tramadol HCl [Ultram] 50 mg PO Q6H PRN 12/31/17 [History] Triamcinolone Acet 0.1% CRM [Kenalog] 1 appl TP BID 12/31/17 [History] Zinc Sulfate [Zinc-15] 50 mg PO BID 12/31/17 [History] 3 Allergy/AdvReac Type Severity Reaction Status Date / Time latex AdvReac See Verified 01/16/17 21:16 Comments All systems: reviewed and no additional remarkable complaints except as stated Exam - Constitutional Vitals: Temp Pulse Resp BP Pulse Ox 98.7 F 77 16 122/58 100 01/01/18 08:00 01/01/18 10:00 01/01/18 10:00 01/01/18 10:00 01/01/18 10:00 General appearance: average body habitus, cooperative, no acute distress - Head Head exam: Present: atraumatic, normal inspection, normocephalic - Eye Eye exam: Present: EOMI, normal appearance, PERRL Pupils: Present: normal accommodation - ENT ENT exam: Present: mucous membranes moist - Neck Neck exam: Present: normal inspection - Respiratory Respiratory exam: Present: CTAB. Absent: rales, respiratory distress, rhonchi, wheezes - Cardiovascular Cardiovascular exam: Present: RRR, +S1, +S2 - GI/Abdominal GI/Abdominal exam: Present: normal bowel sounds, soft. Absent: distended, tenderness Additional comments: Colostomy noted to the right abdomen with beefy red stoma with small amount of dark brown liquid stool noted in the bag. Mucocutaneous fistula noted to the lower abdomen with small amount of light green cloudy drainage noted in the collection bag. NGT to LIWS with moderate amount of dark brown liquid drainage noted in the canister. Echeverria catheter noted to be draining clear yellow urine. - Extremities Exam Extremities exam: Present: normal inspection. Absent: joint swelling, pedal edema, tenderness - Neurological Exam Neurological exam: Present: alert, oriented X3, no focal deficits - Psychiatric Psychiatric exam: Present: normal affect, normal mood - Skin Skin exam: Present: dry, intact, normal color, warm Infectious Disease CN: Results - Labs CBC & Chem 7: 01/01/18 09:02 01/02/18 05:12 Serology: Serology 12/31/17 12/31/17 Range/Units 11:00 11:00 Urine Osmolality 269 L (300-1090) mOsm/kg Urine Creatinine 55 mg/dL Urine Sodium < 10.0 mEq/L Urine Potassium 16.3 mEq/L Urine Chloride < 15 mEq/L Consult Discharge Plan - Plan [facility]errals: [facility] [Primary Care Provider] - - Attending Attestation I examined this patient and my medical decision-making was reviewed with the Resident Physician. I agree with the documented findings, disposition and treatment plan as described except to the extent set forth below. This is an addendum to original report dictated by Virginia Holliday CNP. Please refer to Erick richard for full details. Patient is a 67-year-old gentleman who is a patient of Dr. cartagena who had multiple abdominal surgeries including subtotal colectomy with colostomy and mucocutaneous fistula that is chronic and A. fib, COPD, history of CA in the past and history of bowel perforation in the past presented to the emergency department with 2 week history of nausea vomiting abdominal pain. On arrival patient was afebrile hemodynamically stable but had some tachypnea and some leukocytosis with acute kidney injury patients sodium was 110 potassium 2.7. Workup including CT abdomen and pelvis, CT had, blood cultures, rest of the labs all were unremarkable. Patient was admitted and was aggressively hydrated. We were consult at because it was not draining mucocutaneous fistula that was foul-smelling. Assessment and plan: SIRS Small bowel obstruction likely secondary to adhesion status post NG tube placement: Surgery following Continues fistula that is chronic no signs of cellulitis or intra-abdominal abscess on the CT scan Altered mental status likely secondary to severe hyponatremia has been corrected Acute kidney injury
[2018-01-01 14:40] LABS: Albumin 3.7 g/dL (3.5-5.7); BUN/Creatinine Ratio 37 (6-26); Blood Urea Nitrogen 33 mg/dL (8-23); Calcium 8.9 mg/dL (8.6-10.3); Carbon Dioxide 36 mEq/L (23-29); Chloride 84 mEq/L (98-107); Glucose 120 mg/dL (70-105); Osmolality,Calculated 282 (280-300); Phosphorous 1.5 mg/dL (2.7-4.5); Potassium 4.6 mEq/L (3.5-5.1); Sodium 132 mEq/L (136-145); eGFR For African Americans > 60 (> 60); eGFR For Non-African Americans > 60 (> 60)
--- NOTE | 2018-01-01 15:20 | General Surgery Consult Note ---
Date of Encounter: 01/01/18 Time of Encounter: 15:10 History of Present Illness Consult date: 12/31/17 Requesting physician: Cata Farias History of present illness: General Surgery - This is a delayed dictation Called to see this 67-year-old male with history of coronary artery disease with prior DE; hypertension; hyperlipidemia; chronic atrial fibrillation requiring anticoagulation, history of alcohol and tobacco abuse after presenting to the emergency department with a two-week history nausea, vomiting , anorexia resulting in severe hyponatremia, hypokalemia and other electrolyte abnormalities. This patient is well-known to me related to a presentation in July 2014 with acute perforated diverticulitis. Patient had a very long complicated hospital course following exploratory celiotomy, and Milton procedure (sigmoid colectomy and Adrian pouch) with acute renal failure, respiratory failure requiring prolonged mechanical ventilation, tracheostomy, placement of gastrostomy tube. The patient required revision of his end colostomy and ultimately developed a entero-colic fistula. The Milton pouch apparently eroded into an adjacent loop of small bowel with resumption of bowel movements. The CT completed on presentation to [facility], 12/31/17 was reviewed with [facility]. In the vicinity of this entero colic fistula patient has developed progressive inflammation and resultant small bowel obstruction. The CT abdomen/pelvis was reviewed with [facility]ologist on this date. The patient is likely to require a repeat exploratory celiotomy but is an extremely high risk patient related to his severe pulmonary disease/ centrilobular emphysema, cardiac disease, renal disease and continued tobacco use estimated to be 3-4 packs per day as well as continued alcohol abuse. Lengthy discussion has been completed with Dr. Farias. Records from my office and operative reports from July 2014, August 2014 have been provided. Recommendations include transfer to a tertiary center such as [facility] due to the anticipated senior care care and likely significant morbidity and possible mortality related to surgical management of this patient. I will follow along with you as well as the patient is being cared for at [facility]. Further recommendations will be forthcoming depending on the patient's overall status. Past Med Surg Social Fam HX - Past Medical History Medical history: atrial fibrillation, COPD, hyperlipidemia, hypertension, myocardial infarction, other Additional medical history: Perforated Bowel Psychiatric history: no psych history - Past Surgical History Surgical History: colostomy - Social History Smoking Status: Current every day smoker Packs per day: 2 Smokeless Tobacco Status: No Alcohol use: none Drug use: none Medications and Allergies Acetaminophen [Tylenol] 1,000 mg PO TID PRN 01/16/17 [History] Albuterol Sulfate [Albuterol Inhaler] 2 puff IH QID PRN 01/16/17 [History] Aloe Vera/Collagen [Aloe [place] Cleansing Foam] 1 appl TP DAILY 01/16/17 [History ] Ascorbate Calcium [Vitamin C] 500 mg PO DAILY 01/16/17 [History] Docusate [Colace] 100 mg PO BID 01/16/17 [History] Furosemide [Lasix] 40 mg PO DAILY 01/16/17 [History] Gabapentin [Neurontin] 600 mg PO TID 01/16/17 [History] Metoprolol [Lopressor] 50 mg PO BID 01/16/17 [History] Multivitamin [Multi-Day Vitamins] 1 each PO DAILY 01/16/17 [History] Rivaroxaban [Xarelto] 20 mg PO DAILY 01/16/17 [History] Simvastatin [Zocor] 20 mg PO HS 01/16/17 [History] Sod Chloride/B-6/Zinc Acet/Ca [Wound Cleanser] 3 - 5 spray IR DAILY 01/16/17 [ History] Vit C/E/Zn/Coppr/Lutein/Zeaxan [Preservision Areds 2 Softgel] 1 cap PO BID 01/16 [History] raNITIdine HCl [Zantac] 150 mg PO BID 01/16/17 [History] Albuterol Neb [Proventil Neb] 2.5 mg IH Q4HR 12/31/17 [History] Budesonide/Formoterol 80/4.5 [Symbicort 80/4.5] 1 puff IH BID 12/31/17 [History ] Buprenorphine [Butrans] 1 patch TD Q7D 12/31/17 [History] Cyanocobalamin (Vitamin B-12) [Vitamin B-12] 1,000 mcg SL DAILY 12/31/17 [ History] Diclofenac Sodium [Voltaren] 1 appl TP QID 12/31/17 [History] Lactobacillus Acidophilus [Acidophilus Lactobacillus] 1 cap PO DAILY 12/31/17 [ History] Nystatin POWDER [Nystop] 1 appl TP BID 12/31/17 [History] Tramadol HCl [Ultram] 50 mg PO Q6H PRN 12/31/17 [History] Triamcinolone Acet 0.1% CRM [Kenalog] 1 appl TP BID 12/31/17 [History] Zinc Sulfate [Zinc-15] 50 mg PO BID 12/31/17 [History] 3 Allergy/AdvReac Type Severity Reaction Status Date / Time latex AdvReac See Verified 01/16/17 21:16 Comments Review of Systems All systems PM: The remainder of the systems were reviewed and are negative General Surgery Exam Initial Vital Signs Temp Pulse Resp BP Pulse Ox 98.0 F 63 27 124/71 95 12/30/17 22:34 12/30/17 22:34 12/30/17 22:34 12/30/17 22:34 12/30/17 22:34 Exam Initial Vital Signs Temp Pulse Resp BP Pulse Ox 98.0 F 63 27 124/71 95 12/30/17 22:34 12/30/17 22:34 12/30/17 22:34 12/30/17 22:34 12/30/17 22:34 Results - Labs 01/01/18 09:02 01/01/18 12:19 Abnormal lab results MCV 81.3 fL (83.0-100.0) L 01/01/18 09:02 PT 13.1 Seconds (9.4-12.1) H 12/30/17 22:40 APTT 36.8 Seconds (26.0-36.0) H 12/30/17 22:40 Sodium 132 mEq/L (136-145) L 01/01/18 12:19 Chloride 84 mEq/L (98-107) L 01/01/18 12:19 Carbon Dioxide 36 mEq/L (23-29) H 01/01/18 12:19 BUN 33 mg/dL (8-23) H 01/01/18 12:19 BUN/Creatinine Ratio 37 (6-26) H 01/01/18 12:19 Glucose 120 mg/dL (70-105) H 01/01/18 12:19 Phosphorus 1.5 mg/dL (2.7-4.5) L 01/01/18 12:19 Urine Clarity Cloudy (Clear) A 12/30/17 23:12 Urine Protein 30 mg/dL (Neg-Trace) H 12/30/17 23:12 Urine Microscopic RBC 5-15 per hpf (0-3) H 12/30/17 23:12 Ur Squamous Epith Cells Many per lpf (None-Few) H 12/30/17 23:12 Hyaline Casts Moderate per lpf (None-Few) H 12/30/17 23:12 Urine Osmolality 269 mOsm/kg (300-1090) L 12/31/17 11:00 Stool Occult Blood Positive (Negative) A 12/30/17 23:30 Diabetes panel 12/31/17 12/31/17 12/31/17 Range/Units 15:15 17:21 21:54 Sodium 120 L* 124 L (136-145) mEq/L Potassium 2.9 L 2.9 L 3.4 L (3.5-5.1) mEq/L Chloride 68 L 73 L (98-107) mEq/L Carbon Dioxide 42 H* 40 H* (23-29) mEq/L BUN 59 H 53 H (8-23) mg/dL Creatinine 1.56 H 1.33 H (0.70-1.30) mg/dL Glucose 84 88 (70-105) mg/dL Calcium 8.7 8.9 (8.6-10.3) mg/dL Albumin 3.8 3.8 (3.5-5.7) g/dL 01/01/18 01/01/18 01/01/18 Range/Units 01:25 05:25 09:02 Sodium 126 L 128 L 129 L (136-145) mEq/L Potassium 3.2 L 3.5 3.8 (3.5-5.1) mEq/L Chloride 76 L 77 L 80 L (98-107) mEq/L Carbon Dioxide 36 H 40 H* 34 H (23-29) mEq/L BUN 47 H 41 H 35 H (8-23) mg/dL Creatinine 1.14 1.02 0.88 (0.70-1.30) mg/dL Glucose 101 123 H 124 H (70-105) mg/dL Calcium 8.8 9.0 8.9 (8.6-10.3) mg/dL Albumin 3.7 3.9 3.9 (3.5-5.7) g/dL 01/01/18 Range/Units 12:19 Sodium 132 L (136-145) mEq/L Potassium 4.6 (3.5-5.1) mEq/L Chloride 84 L (98-107) mEq/L Carbon Dioxide 36 H (23-29) mEq/L BUN 33 H (8-23) mg/dL Creatinine 0.89 (0.70-1.30) mg/dL Glucose 120 H (70-105) mg/dL Calcium 8.9 (8.6-10.3) mg/dL Albumin 3.7 (3.5-5.7) g/dL Calcium panel 12/31/17 12/31/17 01/01/18 Range/Units 17:21 21:54 01:25 Calcium 8.7 8.9 8.8 (8.6-10.3) mg/dL Phosphorus 2.1 L 1.7 L 1.6 L (2.7-4.5) mg/dL Albumin 3.8 3.8 3.7 (3.5-5.7) g/dL 01/01/18 01/01/18 01/01/18 Range/Units 05:25 09:02 12:19 Calcium 9.0 8.9 8.9 (8.6-10.3) mg/dL Phosphorus 1.5 L 1.3 L 1.5 L (2.7-4.5) mg/dL Albumin 3.9 3.9 3.7 (3.5-5.7) g/dL Pituitary panel 12/31/17 12/31/17 12/31/17 Range/Units 15:15 17:21 21:54 Sodium 120 L* 124 L (136-145) mEq/L Potassium 2.9 L 2.9 L 3.4 L (3.5-5.1) mEq/L Chloride 68 L 73 L (98-107) mEq/L Carbon Dioxide 42 H* 40 H* (23-29) mEq/L BUN 59 H 53 H (8-23) mg/dL Creatinine 1.56 H 1.33 H (0.70-1.30) mg/dL Glucose 84 88 (70-105) mg/dL Calcium 8.7 8.9 (8.6-10.3) mg/dL 01/01/18 01/01/18 01/01/18 Range/Units 01:25 05:25 09:02 Sodium 126 L 128 L 129 L (136-145) mEq/L Potassium 3.2 L 3.5 3.8 (3.5-5.1) mEq/L Chloride 76 L 77 L 80 L (98-107) mEq/L Carbon Dioxide 36 H 40 H* 34 H (23-29) mEq/L BUN 47 H 41 H 35 H (8-23) mg/dL Creatinine 1.14 1.02 0.88 (0.70-1.30) mg/dL Glucose 101 123 H 124 H (70-105) mg/dL Calcium 8.8 9.0 8.9 (8.6-10.3) mg/dL 01/01/18 Range/Units 12:19 Sodium 132 L (136-145) mEq/L Potassium 4.6 (3.5-5.1) mEq/L Chloride 84 L (98-107) mEq/L Carbon Dioxide 36 H (23-29) mEq/L BUN 33 H (8-23) mg/dL Creatinine 0.89 (0.70-1.30) mg/dL Glucose 120 H (70-105) mg/dL Calcium 8.9 (8.6-10.3) mg/dL Adrenal panel 12/31/17 12/31/17 12/31/17 Range/Units 15:15 17:21 21:54 Sodium 120 L* 124 L (136-145) mEq/L Potassium 2.9 L 2.9 L 3.4 L (3.5-5.1) mEq/L Chloride 68 L 73 L (98-107) mEq/L Carbon Dioxide 42 H* 40 H* (23-29) mEq/L BUN 59 H 53 H (8-23) mg/dL Creatinine 1.56 H 1.33 H (0.70-1.30) mg/dL Glucose 84 88 (70-105) mg/dL Calcium 8.7 8.9 (8.6-10.3) mg/dL Albumin 3.8 3.8 (3.5-5.7) g/dL 01/01/18 01/01/18 01/01/18 Range/Units 01:25 05:25 09:02 Sodium 126 L 128 L 129 L (136-145) mEq/L Potassium 3.2 L 3.5 3.8 (3.5-5.1) mEq/L Chloride 76 L 77 L 80 L (98-107) mEq/L Carbon Dioxide 36 H 40 H* 34 H (23-29) mEq/L BUN 47 H 41 H 35 H (8-23) mg/dL Creatinine 1.14 1.02 0.88 (0.70-1.30) mg/dL Glucose 101 123 H 124 H (70-105) mg/dL Calcium 8.8 9.0 8.9 (8.6-10.3) mg/dL Albumin 3.7 3.9 3.9 (3.5-5.7) g/dL 01/01/18 Range/Units 12:19 Sodium 132 L (136-145) mEq/L Potassium 4.6 (3.5-5.1) mEq/L Chloride 84 L (98-107) mEq/L Carbon Dioxide 36 H (23-29) mEq/L BUN 33 H (8-23) mg/dL Creatinine 0.89 (0.70-1.30) mg/dL Glucose 120 H (70-105) mg/dL Calcium 8.9 (8.6-10.3) mg/dL Albumin 3.7 (3.5-5.7) g/dL All other labs normal. Consult Discharge Plan - Plan Referrals: [facility] [Primary Care Provider] -
[2018-01-01] MEDS: D5% in 0.45% NACL w KCl 20 MEQ/1,000 ML MLS IVC SCH (15:37)
[2018-01-01 17:53] LABS: Albumin 3.5 g/dL (3.5-5.7); BUN/Creatinine Ratio 32 (6-26); Blood Urea Nitrogen 24 mg/dL (8-23); Calcium 8.4 mg/dL (8.6-10.3); Carbon Dioxide 36 mEq/L (23-29); Chloride 85 mEq/L (98-107); Glucose 155 mg/dL (70-105); Osmolality,Calculated 279 (280-300); Phosphorous 1.8 mg/dL (2.7-4.5); Potassium 3.7 mEq/L (3.5-5.1); Sodium 131 mEq/L (136-145); eGFR For African Americans > 60 (> 60); eGFR For Non-African Americans > 60 (> 60)
[2018-01-01 21:56] LABS: Albumin 3.4 g/dL (3.5-5.7); BUN/Creatinine Ratio 28 (6-26); Blood Urea Nitrogen 20 mg/dL (8-23); Calcium 8.3 mg/dL (8.6-10.3); Carbon Dioxide 36 mEq/L (23-29); Chloride 86 mEq/L (98-107); Glucose 143 mg/dL (70-105); Osmolality,Calculated 275 (280-300); Potassium 3.6 mEq/L (3.5-5.1); Sodium 130 mEq/L (136-145); eGFR For African Americans > 60 (> 60); eGFR For Non-African Americans > 60 (> 60)
[2018-01-02 02:20] LABS: Albumin 3.3 g/dL (3.5-5.7); BUN/Creatinine Ratio 25 (6-26); Blood Urea Nitrogen 17 mg/dL (8-23); Calcium 8.3 mg/dL (8.6-10.3); Carbon Dioxide 34 mEq/L (23-29); Chloride 87 mEq/L (98-107); Glucose 136 mg/dL (70-105); Osmolality,Calculated 276 (280-300); Phosphorous 1.5 mg/dL (2.7-4.5); Potassium 3.4 mEq/L (3.5-5.1); Sodium 131 mEq/L (136-145); eGFR For African Americans > 60 (> 60); eGFR For Non-African Americans > 60 (> 60)
[2018-01-02 06:08] LABS: Albumin 3.4 g/dL (3.5-5.7); BUN/Creatinine Ratio 23 (6-26); Blood Urea Nitrogen 15 mg/dL (8-23); Calcium 8.4 mg/dL (8.6-10.3); Carbon Dioxide 36 mEq/L (23-29); Chloride 87 mEq/L (98-107); Glucose 144 mg/dL (70-105); Osmolality,Calculated 273 (280-300); Phosphorous 1.5 mg/dL (2.7-4.5); Potassium 3.4 mEq/L (3.5-5.1); Sodium 130 mEq/L (136-145); eGFR For African Americans > 60 (> 60); eGFR For Non-African Americans > 60 (> 60)
[2018-01-02] MEDS: *HR* Heparin 5,000 UNIT/ML VIAL SQ SCH ×5 (06:12→20:59)
[2018-01-02] MEDS: D5% in 0.45% NACL w KCl 20 MEQ/1,000 ML MLS IVC SCH (07:53)
[2018-01-02] MEDS: Pantoprazole 40 MG VIAL IVP SCH (07:53)
[2018-01-02] MEDS ORDERED: Potassium Phosphate 44 MEQ in 0.9 % Sodium Chloride 250 ML IVPB ONE (08:02)
--- NOTE | 2018-01-02 08:06 | Internal Med Progress Note ---
Date of Encounter: 01/02/18 Time of Encounter: 08:04 - Assessment and plan (1) Small bowel obstruction Current Visit: Yes Status: Acute Assessment and plan: Ct showed ABO, surgery is on board, NG, clear liquids patient had TTE on 01/16/2017 with normal EF, RCRI score one (2) Hypokalemia Current Visit: Yes Status: Acute Assessment and plan: will replace IV K-phos (3) Hyponatremia Current Visit: Yes Status: Acute Assessment and plan: changed IVF to D5NS with KCL (4) COPD (chronic obstructive pulmonary disease) Current Visit: Yes Status: Acute Assessment and plan: not on home O2, restart home inhalers, nebs prn Qualifiers: COPD type: unspecified COPD Qualified Code(s): J44.9 - Chronic obstructive pulmonary disease, unspecified (5) Atrial fibrillation Current Visit: Yes Status: Acute Assessment and plan: current on sinus, hold xarelto due to surgery, check INR Qualifiers: Atrial fibrillation type: paroxysmal Qualified Code(s): I48.0 - Paroxysmal atrial fibrillation (6) Acute renal failure Current Visit: Yes Status: Acute Assessment and plan: from dehydration, resolved Qualifiers: Acute renal failure type: with other specified pathological lesion Qualified Code(s): N17.8 - Other acute kidney failure (7) Acute kidney injury Current Visit: Yes Status: Acute (8) DVT prophylaxis Current Visit: Yes Status: Acute Assessment and plan: heparin SC (9) Metabolic alkalosis Current Visit: Yes Status: Acute Assessment and plan: ressolved (10) Cutaneous fistula Current Visit: Yes Status: Acute Assessment and plan: continue wound care (11) SIRS (systemic inflammatory response syndrome) Current Visit: Yes Status: Acute Assessment and plan: resolved - Time Spent With Patient Total time spent is greater than 50% in coordination of care (as documented) at patient's floor/unit and/or counseling patient: Greater than 35 minutes - Subjective Interval history: Mr. Wolf is a 67 year old male with h/o HTN, HLD, Afib on coumadin, COPD, CAD /[place], s/p ostomy 3.5 years ago for perforated bowel who presented to the emergency room with nausea, vomiting, poor PO intake, diffuse abdominal pain, and intermittently increased colostomy output x 2 weeks. Pt is somnolent, but does open eyes and respond to questions. Workup in the emergency department showed an acute kidney injury with serum creatinine 2.21 and associated severe hyponatremia (110) and hypokalemia (2.7). CT abdomen pelvis findings compatible with small bowel obstruction, the transition point just inferior to iliac bifurcation. CT also showed mild dilation of left renal collecting system without obstructed calculus possibly from compression of left ureter by distended small bowel loops. Surgery was consult dated, patient may need a surgery. Patient has NG placed, on clear liquids, he has COPD very shortness of breath, no diffuse wheezing he wants to go home - Constitutional Vitals: Temp Pulse Resp BP Pulse Ox 97.7 F 96 14 132/71 97 01/02/18 07:05 01/02/18 07:05 01/02/18 07:05 01/02/18 07:05 01/02/18 07:05 General appearance: Present: A&O X 3, pleasant, answers questions appropriately Exam: CONSTITUTIONAL: Patient appears as an age appropriate male well developed, in no acute distress. EYES Clear sclerae, bilateral pupils are equal, reactive to light and accommodation. Extraocular movements are intact RESPIRATORY: No accessory muscle use, bilateral clear to auscultation, no wheezing, no crackles/rales. CARDIOVASCULAR: Regular heart rate, normal S1 and S2, no murmurs GASTROINTESTINAL: bowel sounds present, soft, no tenderness. No hepatosplenomegaly. No bilateral CVA tenderness MUSCULOSKELETAL: Joints in normal range of motion, no clubbing, no edema, no cyanosis. Bilateral peripheral pulses 2+ LYMPHATIC no lymphadenopathy in neck, groin and axilla bilaterally, no thyromegaly. NEUROLOGIC: CN II to XII are grossly intact, no focal neurological deficit. Deep tendon reflexes 2+ bilaterally. Normal light touch sensation to upper and lower extremity PSYCHIATRIC: Oriented x3, with good insight, mood is euthymic. No hallucinations or delusions. SKIN: Skin warm and dry, no rashes, open wound to abdomen and ostomy. Internal Medicine: Result - Labs CBC & Chem 7: 01/01/18 09:02 01/02/18 05:12 Labs: Short CBC 01/01/18 Range/Units 09:02 WBC 10.0 (4.3-11.1) K/mcL Hgb 15.1 (12.9-16.9) g/dL Hct 43.9 (37.5-50.1) % Plt Count 141 (140-400) K/mcL Neutrophils # 7.3 (1.6-8.9) K/mcL BMP 01/01/18 01/01/18 01/01/18 09:02 12:19 17:18 Sodium 129 L 132 L 131 L Potassium 3.8 4.6 3.7 Chloride 80 L 84 L 85 L Carbon Dioxide 34 H 36 H 36 H BUN 35 H 33 H 24 H Creatinine 0.88 0.89 0.76 Glucose 124 H 120 H 155 H Calcium 8.9 8.9 8.4 L 01/01/18 01/02/18 01/02/18 21:12 01:05 05:12 Sodium 130 L 131 L 130 L Potassium 3.6 3.4 L 3.4 L Chloride 86 L 87 L 87 L Carbon Dioxide 36 H 34 H 36 H BUN 20 17 15 Creatinine 0.72 0.68 L 0.64 L Glucose 143 H 136 H 144 H Calcium 8.3 L 8.3 L 8.4 L Liver Function 01/01/18 01/01/18 01/01/18 Range/Units 09:02 12:19 17:18 Albumin 3.9 3.7 3.5 (3.5-5.7) g/dL 01/01/18 01/02/18 01/02/18 Range/Units 21:12 01:05 05:12 Albumin 3.4 L 3.3 L 3.4 L (3.5-5.7) g/dL - ABG Interpretation ABG results: PT/INR, D-dimer PT 13.1 Seconds (9.4-12.1) H 12/30/17 22:40 - VTE Documentation of Mechanical Device: Intermittent pneumatic compression device Consult Discharge Plan - Plan [facility] Provider[facility] -
[2018-01-02] MEDS ORDERED: Nystatin POWDER 30 GM BOTTLE TP SCH (09:00)
[2018-01-02] MEDS ORDERED: Triamcinolone Acet 0.1% CRM 1 APPL GRAM TP SCH (09:00)
[2018-01-02] MEDS: Albuterol 2.5 MG/3 ML NEBULIZER IH SCH ×5 (09:40→23:37)
[2018-01-02] MEDS: Patient Taking Own Medication 1 EACH MC SCH (09:48)
[2018-01-02] MEDS: ZINC SULFATE 50 MG PO SCH ×2 (09:49→20:54)
[2018-01-02] MEDS: Gabapentin 300 MG CAPSULE PO SCH ×3 (10:05→20:54)
--- NOTE | 2018-01-02 10:05 | Event Note ---
Date of Encounter: 01/02/18 Time of Encounter: 10:04 The patient's renal function has returned to normal and his sodium continues to improve. Nephrology will sign off. Please call again if needed.
[2018-01-02] MEDS: D5% in 0.9% NACL w KCl 20 MEQ/1,000 ML MLS IVC SCH (10:06)
[2018-01-02] MEDS: Famotidine 20 MG TABLET PO SCH ×2 (10:06→20:54)
[2018-01-02] MEDS: Cyanocobalamin (B-12) 1,000 MCG TABLET PO SCH (10:06)
[2018-01-02 10:33] LABS: Albumin 3.5 g/dL (3.5-5.7); BUN/Creatinine Ratio 18 (6-26); Blood Urea Nitrogen 13 mg/dL (8-23); Calcium 8.5 mg/dL (8.6-10.3); Carbon Dioxide 33 mEq/L (23-29); Chloride 88 mEq/L (98-107); Glucose 162 mg/dL (70-105); Osmolality,Calculated 274 (280-300); Phosphorous 1.4 mg/dL (2.7-4.5); Sodium 130 mEq/L (136-145); eGFR For African Americans > 60 (> 60); eGFR For Non-African Americans > 60 (> 60)
[2018-01-02] MEDS: Budesonide/Formoterol 80/4.5 MDI IH SCH ×2 (11:03→22:34)
--- NOTE | 2018-01-02 17:40 | Event Note ---
Date of Encounter: 01/02/18 Time of Encounter: 17:37 Patient resting comfortably in bed. Denies abdominl pain, N./V. Afebrile, hemodynamically stable. Abdomen: Soft, nontender. Colostomy in the right upper quadrant appears to be functioning; copious soft brown stool in the appliance. Nephrology has signed off as renal status has returned to normal; sodium has improved to 130 (110 on presentation) Per hospitalist note dated earlier today, the patient wants to go home. Will repeat CT/abdomen in a.m. prior to discharge. The patient is aware of his significant operative risks.
[2018-01-03] MEDS: D5% in 0.9% NACL w KCl 20 MEQ/1,000 ML MLS IVC SCH ×2 (03:38→16:35)
[2018-01-03] MEDS: Albuterol 2.5 MG/3 ML NEBULIZER IH SCH ×6 (04:22→23:08)
[2018-01-03] MEDS: *HR* Heparin 5,000 UNIT/ML VIAL SQ SCH ×3 (05:40→23:31)
[2018-01-03 06:43] LABS: INR 1.2; Prothrombin Time 13.1 Seconds (9.4-12.1)
[2018-01-03 07:05] LABS: BUN/Creatinine Ratio 14 (6-26); Blood Urea Nitrogen 10 mg/dL (8-23); Calcium 8.5 mg/dL (8.6-10.3); Carbon Dioxide 28 mEq/L (23-29); Chloride 97 mEq/L (98-107); Glucose 123 mg/dL (70-105); Magnesium 1.4 mg/dL (1.6-2.6); Osmolality,Calculated 280 (280-300); Phosphorous 2.7 mg/dL (2.7-4.5); Potassium 4.7 mEq/L (3.5-5.1); Sodium 135 mEq/L (136-145); eGFR For African Americans > 60 (> 60); eGFR For Non-African Americans > 60 (> 60)
[2018-01-03] MEDS: Pantoprazole 40 MG VIAL IVP SCH (09:54)
[2018-01-03] MEDS: Gabapentin 300 MG CAPSULE PO SCH ×3 (09:54→23:30)
[2018-01-03] MEDS: ZINC SULFATE 50 MG PO SCH ×2 (09:54→23:31)
[2018-01-03] MEDS: Cyanocobalamin (B-12) 1,000 MCG TABLET PO SCH (09:54)
[2018-01-03] MEDS: Famotidine 20 MG TABLET PO SCH ×2 (09:54→23:30)
[2018-01-03] MEDS: Budesonide/Formoterol 80/4.5 MDI IH SCH ×2 (10:28→22:27)
--- NOTE | 2018-01-03 12:59 | Internal Med Progress Note ---
Date of Encounter: 01/03/18 Time of Encounter: 12:42 - Assessment and plan (1) Small bowel obstruction Current Visit: Yes Status: Acute Assessment and plan: Surgery was consulted, I spoke to Dr Jung, patient had very complicated course during last surgery, had prolonged ICU stay. Patient also has other comorbidities including COPD atrial fibrillation CAD stated post ID, malnutrition. he is at extremely high risk for surgery. Dr. South recommended to transfer the patient to tertiary care, [facility] for further evaluation and treatment but the patient clearly refused. CT result discussed with Dr Jung, NG is out on regular diet (2) Hypokalemia Current Visit: Yes Status: Acute Assessment and plan: resolved (3) Hyponatremia Current Visit: Yes Status: Acute Assessment and plan: resolved with IVF (4) COPD (chronic obstructive pulmonary disease) Current Visit: Yes Status: Acute Assessment and plan: stable, not on home O2, wean O2 Qualifiers: COPD type: unspecified COPD Qualified Code(s): J44.9 - Chronic obstructive pulmonary disease, unspecified (5) Atrial fibrillation Current Visit: Yes Status: Acute Assessment and plan: contieu home meds metoprolol 50 mg BID Qualifiers: Atrial fibrillation type: paroxysmal Qualified Code(s): I48.0 - Paroxysmal atrial fibrillation (6) Acute renal failure Current Visit: Yes Status: Acute Assessment and plan: resolved Qualifiers: Acute renal failure type: with other specified pathological lesion Qualified Code(s): N17.8 - Other acute kidney failure (7) DVT prophylaxis Current Visit: Yes Status: Acute (8) Metabolic alkalosis Current Visit: Yes Status: Acute Assessment and plan: resolved (9) Cutaneous fistula Current Visit: Yes Status: Acute Assessment and plan: wound care (10) SIRS (systemic inflammatory response syndrome) Current Visit: Yes Status: Acute Assessment and plan: resolved - Time Spent With Patient Total time spent is greater than 50% in coordination of care (as documented) at patient's floor/unit and/or counseling patient: Greater than 35 minutes - Subjective Interval history: Mr. 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 Pt is somnolent, but does open eyes and respond to questions. Workup in the emergency department showed an acute kidney injury with serum creatinine 2.21 and associated severe hyponatremia (110) and hypokalemia (2.7). CT abdomen pelvis findings compatible with small bowel obstruction, the transition point just inferior to iliac bifurcation. CT also showed mild dilation of left renal collecting system without obstructed calculus possibly from compression of left ureter by distended small bowel loops. Surgery was consulted, I spoke to Dr Jung, patient had very complicated course during last surgery, had prolonged ICU stay. Patient also has other comorbidities including COPD atrial fibrillation CAD stated post ID, malnutrition. he is at extremely high risk for surgery. Dr. South recommended to transfer the patient to tertiary care, [facility] for further evaluation and treatment but the patient clearly refused. Patient has NG placed, on clear liquids, he has COPD very shortness of breath, no diffuse wheezing Currently he is afebrile, VS are stable, he is oriented to 3, he never pulled his NG out. Patient tells me he does not want surgery, but would not tell me the reason. I offered him hospice , he declined. He wants to go home. I believe he has basic capacity to decide where he wants to go, but not sure if he understands with risk of refusing surgery and other treatment. I consulted psychiatrist to further determine if he has capacity to make the medical decision. Await for psychiatrist to give us recommendation about his capacity. - Constitutional Vitals: Temp Pulse Resp BP Pulse Ox 97.5 F L 84 16 125/85 94 01/03/18 11:07 01/03/18 11:07 01/03/18 11:07 01/03/18 11:01/03/18 11:07 General appearance: Present: A&O X 3, pleasant, answers questions appropriately Exam: CONSTITUTIONAL: patient appears as an age appropriate male in no acute distress. EYES Clear sclerae, bilateral pupils are equal, reactive to light. EMOI. RESPIRATORY: No accessory muscle use, bilateral clear to auscultation, no wheezing, no crackles/rales. CARDIOVASCULAR: Regular heart rate, normal S1 and S2, no murmurs GASTROINTESTINAL: bowel sounds present, soft, no tenderness. MUSCULOSKELETAL: Joints in normal range of motion, no clubbing, no edema, no cyanosis. Bilateral peripheral pulses 2+. NEUROLOGIC: CN II to XII are grossly intact, no focal neurological deficit. Internal Medicine: Result - Labs CBC & Chem 7: 01/01/18 09:02 01/03/18 06:20 Labs: BMP 01/03/18 06:20 Sodium 135 L Potassium 4.7 Chloride 97 L Carbon Dioxide 28 BUN 10 Creatinine 0.74 Glucose 123 H Calcium 8.5 L - ABG Interpretation ABG results: PT/INR, D-dimer PT 13.1 Seconds (9.4-12.1) H 01/03/18 06:20 - Impressions Impressions Abdomen/Pelvis CT 01/02/18 17:36 IMPRESSION: 1. Ongoing focal dilation of a small bowel loop in the left lower quadrant, although distention appears improved in comparison to prior exam. More proximal distention of the stomach and duodenum has resolved. 2. Nonspecific right adrenal nodule. 3. Cholelithiasis without evidence of cholecystitis. 4. Nonspecific fat stranding adjacent to the bladder. Consider correlation for cystitis. D/ / 01/02/2018 19:29:08 Leonardo Gaffney MD / [email or web address] Interpreting Provider: Leonardo Gaffney MD - VTE Documentation of Mechanical Device: Intermittent pneumatic compression device Consult Discharge Plan - Plan Referrals: [facility] [Outside]
--- NOTE | 2018-01-03 14:44 | Consult Note ---
Date of Encounter: 01/03/18 Time of Encounter: 13:20 History of Present Illness Patient: new to practice Requesting Physician: Laura Medina MD Reason for consult: Capacity Evaluation History of present illness: Mr. Wolf is a 67 year old male on the medical/surgical floor. A request was made for capacity evaluation is the patient who is currently refusing transferred to [facility] for abdominal surgery for a bowel obstruction. I reviewed the case with Dr. Jung who is the surgeon on the case and has been the patient's surgeon in the past. I was with Dr. Jung when he went to talk to the patient today to review the case and the review his overall progress. He told the patient that his small bowel instruction appeared to be resolving at this time. It was slowly improving and that they are ready to try and feed him solid food today to see how he tolerated it. Dr. Jung reviewed the potential risks and benefits of having surgery versus the possibility of getting a small bowel obstruction again in the future if he did not have the surgery. He explained the need to transfer to [facility] to have the surgery completed , if he elected to have surgery. Patient was able to verbalize back what he heard from the surgeon correctly and explained his concern with waiting and watching versus having the surgery. He explained it back in a correct and logical manner and verbalize true understanding of the procedure and the medical issues involved, risks and benefits. He verbalized the potential risk of waiting and watching to see if the condition got worse again versus going to surgery in the near future. Patient is cognitively intact. He understands the medical issue and the surgical issue involved clearly. He understands the risk and benefits of going to surgery versus not going to surgery. Patient has capacity with full understanding of the issues to make his own medical decisions at this time. CC: Laura Medina MD Past Med Surg Social Fam HX - Past Medical History Medical history: atrial fibrillation, COPD, hyperlipidemia, hypertension, myocardial infarction, other - Past Psychiatric History Psychiatric history: Reports: no psych history Family psychiatric history: No Family History of Suicide: None - Past Surgical History Surgical History: colostomy - Social History Smoking Status: Current every day smoker Smokeless Tobacco Status: No Alcohol use: none Drug use: none Medications & Allergies Acetaminophen [Tylenol] 1,000 mg PO TID PRN 01/16/17 [History] Albuterol Sulfate [Albuterol Inhaler] 2 puff IH QID PRN 01/16/17 [History] Aloe Vera/Collagen [Aloe [place] Cleansing Foam] 1 appl TP DAILY 01/16/17 [History ] Ascorbate Calcium [Vitamin C] 500 mg PO DAILY 01/16/17 [History] Docusate [Colace] 100 mg PO BID 01/16/17 [History] Furosemide [Lasix] 40 mg PO DAILY 01/16/17 [History] Gabapentin [Neurontin] 600 mg PO TID 01/16/17 [History] Metoprolol [Lopressor] 50 mg PO BID 01/16/17 [History] Multivitamin [Multi-Day Vitamins] 1 each PO DAILY 01/16/17 [History] Rivaroxaban [Xarelto] 20 mg PO DAILY 01/16/17 [History] Simvastatin [Zocor] 20 mg PO HS 01/16/17 [History] Sod Chloride/B-6/Zinc Acet/Ca [Wound Cleanser] 3 - 5 spray IR DAILY 01/16/17 [ History] Vit C/E/Zn/Coppr/Lutein/Zeaxan [Preservision Areds 2 Softgel] 1 cap PO BID 01/16 [History] raNITIdine HCl [Zantac] 150 mg PO BID 01/16/17 [History] Albuterol Neb [Proventil Neb] 2.5 mg IH Q4HR 12/31/17 [History] Budesonide/Formoterol 80/4.5 [Symbicort 80/4.5] 1 puff IH BID 12/31/17 [History ] Buprenorphine [Butrans] 1 patch TD Q7D 12/31/17 [History] Cyanocobalamin (Vitamin B-12) [Vitamin B-12] 1,000 mcg SL DAILY 12/31/17 [ History] Diclofenac Sodium [Voltaren] 1 appl TP QID 12/31/17 [History] Lactobacillus Acidophilus [Acidophilus Lactobacillus] 1 cap PO DAILY 12/31/17 [ History] Nystatin POWDER [Nystop] 1 appl TP BID 12/31/17 [History] Tramadol HCl [Ultram] 50 mg PO Q6H PRN 12/31/17 [History] Triamcinolone Acet 0.1% CRM [Kenalog] 1 appl TP BID 12/31/17 [History] Zinc Sulfate [Zinc-15] 50 mg PO BID 12/31/17 [History] 3 Allergy/AdvReac Type Severity Reaction Status Date / Time latex AdvReac See Verified 01/16/17 21:16 Comments Psychiatry Exam - Constitutional Vitals: Temp Pulse Resp BP Pulse Ox 97.5 F L 84 16 125/85 94 01/03/18 11:07 01/03/18 11:07 01/03/18 11:07 01/03/18 11:07 01/03/18 11:07 General appearance: age & developmentally appropriate, other (fistula and colostomy bags on abdomen) - Musculoskeletal Gait: other (In hospital medical bed) - Psychiatric Patient Orientation: Yes Person, Yes Time, Yes Place, Yes Circumstance Level of alertness: Alert Behavior: cooperative Psychomotor activity: Normal Eye Contact: Maintains Eye Contact Mood Description: Anxious (mildly) Affect description: congruent with mood Speech Volume: Normal Speech pattern: normal rate, normal rhythm, normal tone Language & Vocabulary: consistent with education Thought Process: Logical, Linear Thought Content: Yes Intact Attention Span Ability: Capable of Focused Attention, Capable of Sustained Attention Memory Description: Grossly Intact Patient Reliability: Reliable Historian Fund of knowledge: Yes abstraction ability Intelligence Estimate: Average Judgment: Good Insight: Full Results - Labs Labs: Laboratory Last Values WBC 10.0 K/mcL (4.3-11.1) 01/01/18 09:02 RBC 5.40 M/mcL (4.19-5.50) 01/01/18 09:02 Hgb 15.1 g/dL (12.9-16.9) 01/01/18 09:02 Hct 43.9 % (37.5-50.1) 01/01/18 09:02 MCV 81.3 fL (83.0-100.0) L 01/01/18 09:02 MCH 28.0 pg (28.0-33.3) 01/01/18 09:02 MCHC 34.4 g/dL (31.6-35.5) 01/01/18 09:02 RDW 13.6 % (11.5-14.5) 01/01/18 09:02 Plt Count 141 K/mcL (140-400) 01/01/18 09:02 MPV 10.9 fL (9.4-12.4) 01/01/18 09:02 Immature Gran % 0.7 % (0-4) 01/01/18 09:02 Seg Neutrophils % 73.1 % 01/01/18 09:02 Lymphocytes % 13.8 % 01/01/18 09:02 Monocytes % 10.2 % 01/01/18 09:02 Eosinophils % 1.8 % 01/01/18 09:02 Basophils % 0.4 % 01/01/18 09:02 Neutrophils # 7.3 K/mcL (1.6-8.9) 01/01/18 09:02 Lymphocytes # 1.4 K/mcL (0.6-4.6) 01/01/18 09:02 Monocytes # 1.0 K/mcL (0.0-1.3) 01/01/18 09:02 Eosinophils # 0.2 K/mcL (0.0-0.6) 01/01/18 09:02 Basophils # 0.0 K/mcL (0.0-0.2) 01/01/18 09:02 PT 13.1 Seconds (9.4-12.1) H 01/03/18 06:20 INR 1.2 01/03/18 06:20 APTT 36.8 Seconds (26.0-36.0) H 12/30/17 22:40 Sodium 135 mEq/L (136-145) L 01/03/18 06:20 Potassium 4.7 mEq/L (3.5-5.1) 01/03/18 06:20 Chloride 97 mEq/L (98-107) L 01/03/18 06:20 Carbon Dioxide 28 mEq/L (23-29) 01/03/18 06:20 BUN 10 mg/dL (8-23) 01/03/18 06:20 Creatinine 0.74 mg/dL (0.70-1.30) 01/03/18 06:20 Est GFR ( Amer) > 60 (> 60) 01/03/18 06:20 Est GFR (Non-Af Amer) > 60 (> 60) 01/03/18 06:20 BUN/Creatinine Ratio 14 (6-26) 01/03/18 06:20 Glucose 123 mg/dL (70-105) H 01/03/18 06:20 POC Glucose 90 mg/dL (70-99) 12/31/17 11:26 Calculated Osmolality 280 (280-300) 01/03/18 06:20 Lactic Acid 0.6 mmol/L (0.5-2.2) 12/31/17 07:35 Calcium 8.5 mg/dL (8.6-10.3) L 01/03/18 06:20 Phosphorus 2.7 mg/dL (2.7-4.5) 01/03/18 06:20 Magnesium 1.4 mg/dL (1.6-2.6) L 01/03/18 06:20 Total Bilirubin 0.6 mg/dL (0.3-1.0) 12/30/17 22:40 AST 16 Units/L (13-39) 12/30/17 22:40 ALT 11 Units/L (7-52) 12/30/17 22:40 Alkaline Phosphatase 90 Units/L (34-104) 12/30/17 22:40 Troponin I < 0.03 ng/mL (< 0.04) 12/30/17 22:40 Serum Total Protein 6.9 g/dL (6.4-8.9) 12/30/17 22:40 Albumin 3.5 g/dL (3.5-5.7) 01/02/18 09:26 Globulin 2.7 g/dL (2.4-3.5) 12/30/17 22:40 Albumin/Globulin Ratio 1.6 (1.1-2.2) 12/30/17 22:40 Urine Color Yellow (Yellow) 12/30/17 23:12 Urine Clarity Cloudy (Clear) A 12/30/17 23:12 Urine pH 5.0 pH Units (5.0-8.0) 12/30/17 23:12 Ur Specific Tina 1.020 (1.010-1.025) 12/30/17 23:12 Urine Protein 30 mg/dL (Neg-Trace) H 12/30/17 23:12 Urine Glucose (UA) Normal mg/dL (Normal) 12/30/17 23:12 Urine Ketones Negative mg/dL (Negative) 12/30/17 23:12 Urine Blood Negative (Negative) 12/30/17 23:12 Urine Nitrite Negative (Negative) 12/30/17 23:12 Urine Bilirubin Negative (Negative) 12/30/17 23:12 Urine Urobilinogen Normal mg/dL (Normal) 12/30/17 23:12 Ur Leukocyte Esterase Negative (Negative) 12/30/17 23:12 Urine Microscopic RBC 5-15 per hpf (0-3) H 12/30/17 23:12 Urine Microscopic WBC 0-3 per hpf (0-3) 12/30/17 23:12 Ur Squamous Epith Cells Many per lpf (None-Few) H 12/30/17 23:12 Urine Bacteria None Seen per hpf (None-Few) 12/30/17 23:12 Hyaline Casts Moderate per lpf (None-Few) H 12/30/17 23:12 Ur Culture Indicated? NO (NO) 12/30/17 23:12 Urine Osmolality 269 mOsm/kg (300-1090) L 12/31/17 11:00 Urine Creatinine 55 mg/dL 12/31/17 11:00 Urine Sodium < 10.0 mEq/L 12/31/17 11:00 Urine Potassium 16.3 mEq/L 12/31/17 11:00 Urine Chloride < 15 mEq/L 12/31/17 11:00 Stool Occult Blood Positive (Negative) A 12/30/17 23:30 Stl C. diff Tox B Gene Negative (Negative) 12/30/17 23:30 - Impressions Impressions Abdomen/Pelvis CT 01/02/18 17:36 IMPRESSION: 1. Ongoing focal dilation of a small bowel loop in the left lower quadrant, although distention appears improved in comparison to prior exam. More proximal distention of the stomach and duodenum has resolved. 2. Nonspecific right adrenal nodule. 3. Cholelithiasis without evidence of cholecystitis. 4. Nonspecific fat stranding adjacent to the bladder. Consider correlation for cystitis. D/ / 01/02/2018 19:29:08 Leonardo Gaffney MD / [email or web address] Interpreting Provider: Leonardo Gaffney MD Mental health/Psychiatry: Patient exhibited a full capacity and understanding of his current medical condition and does have capacity to make medical decisions for himself at this time. Consult Discharge Plan - Plan Referrals: [facility] [Outside]
--- NOTE | 2018-01-03 19:02 | General Surgery Progress Note ---
Date of Encounter: 01/03/18 Time of Encounter: 13:10 Subjective Narrative: General Surgery - I was requested by Dr North to assist with his assessment of the patient's mental capacity to understand the patient's medical status and the risks of surgery. I have discussed this situation repeatedly with the patient dating back to his surgery in 2014. I standby my recommendations against elective surgery for a multitude of reasons all of which have been listed in my consultation dated 01/01/18. I reviewed these comorbid conditions with the patient. They include artery disease with prior KS, hypertension, hyperlipidemia, chronic atrial fibrillation requiring anticoagulation, history of significant alcohol and tobacco abuse. We also briefly reviewed the prolonged postoperative, stormy course the patient experienced in 2014 related to his presentation with acute perforated sigmoid diverticulitis with postoperative prolonged mechanical ventilation for respiratory failure, acute renal failure, and development of a entero colic fistula. The patient was in intensive care for over 80 days with several episodes of severe hemodynamic instability. The patient does not really recall all of these episodes but I certainly do. The patient currently has evidence of a bowel obstruction which may require surgical intervention and I have expressed my significant reservations about the patient undergoing an exploratory celiotomy at this facility. The patient's best understanding of these risks and is significant risk of should surgery become necessary. Despite all this the CT completed this morning shows improvement with diminished distention and dilatation of the jejunal loops. Contrast is now located in the [place] pouch having obviously traversed through the entero- colonic fistula. The patient's colostomy is functioning much better with copious output of stool. The patient's abdomen is soft nontender without palpable masses. He has been tolerating a clear liquid diet without recurrent nausea and vomiting. The patient will be allowed to consume a regular diet. The NG has been removed. And if he has recurrent symptoms: Abdominal pain, nausea, vomiting then surgery may be the last remaining option for this patient. Should surgery become necessary a still recommend referral to a tertiary center. Objective Vital Signs - Last 8 Hours Temp Pulse Resp BP Pulse Ox 01/03/18 16:42 97.7 F 01/03/18 16:11 20 97 01/03/18 15:29 95 16 94/60 95 01/03/18 11:07 97.5 F L 84 16 125/85 94 Intake and Output 01/03/18 01/03/18 01/03/18 07:59 15:59 23:59 Intake Total 950 / 950 240 / 240 1120 / 1120 Output Total 200 / 200 370 / 370 Balance 750 / 750 -130 / -130 1120 / 1120 Intake: IV Fluids 950 / 950 1000 / 1000 KCl 20mEq in D5-0.9 NaCl 20 meq 950 / 950 1000 / 1000 In 1,000 ml @ 75 mls/hr IVC . [id number] [facility] Rx#:[id number] Oral 0 / 0 240 / 240 120 / 120 Output: Stool 0 / 0 100 / 100 Other 0 / 0 Catheter 200 / 200 270 / 270 Other: Meal Breakfast Dinner Percent of Meal Consumed 0% 40% Weight 76.3 kg Patient Weight 01/03/18 23:59 Weight 76.3 kg - Labs 01/01/18 09:02 01/03/18 06:20 Diabetes panel 01/03/18 Range/Units 06:20 Sodium 135 L (136-145) mEq/L Potassium 4.7 (3.5-5.1) mEq/L Chloride 97 L (98-107) mEq/L Carbon Dioxide 28 (23-29) mEq/L BUN 10 (8-23) mg/dL Creatinine 0.74 (0.70-1.30) mg/dL Glucose 123 H (70-105) mg/dL Calcium 8.5 L (8.6-10.3) mg/dL Calcium panel 01/03/18 Range/Units 06:20 Calcium 8.5 L (8.6-10.3) mg/dL Phosphorus 2.7 (2.7-4.5) mg/dL Pituitary panel 01/03/18 Range/Units 06:20 Sodium 135 L (136-145) mEq/L Potassium 4.7 (3.5-5.1) mEq/L Chloride 97 L (98-107) mEq/L Carbon Dioxide 28 (23-29) mEq/L BUN 10 (8-23) mg/dL Creatinine 0.74 (0.70-1.30) mg/dL Glucose 123 H (70-105) mg/dL Calcium 8.5 L (8.6-10.3) mg/dL Adrenal panel 01/03/18 Range/Units 06:20 Sodium 135 L (136-145) mEq/L Potassium 4.7 (3.5-5.1) mEq/L Chloride 97 L (98-107) mEq/L Carbon Dioxide 28 (23-29) mEq/L BUN 10 (8-23) mg/dL Creatinine 0.74 (0.70-1.30) mg/dL Glucose 123 H (70-105) mg/dL Calcium 8.5 L (8.6-10.3) mg/dL - VTE Documentation of Mechanical Device: Intermittent pneumatic compression device Consult Discharge Plan - Plan Referrals: [facility] [Outside]
[2018-01-03] MEDS ORDERED: Simethicone 80 MG TAB.CHEW PO PRN (19:43)
[2018-01-03] MEDS: Ondansetron 4 MG/2 ML VIAL IVP PRN (20:02)
[2018-01-04] MEDS: D5% in 0.45% NACL w KCl 20 MEQ/1,000 ML MLS IVC SCH (00:54)
[2018-01-04] MEDS: Albuterol 2.5 MG/3 ML NEBULIZER IH SCH ×7 (04:09→23:23)
[2018-01-04 04:31] LABS: Basophils # 0.1 K/mcL (0.0-0.2); Basophils % 0.3 %; Eosinophils # 0.6 K/mcL (0.0-0.6); Eosinophils % 4.4 %; Hematocrit 42.1 % (37.5-50.1); Hemoglobin 14.1 g/dL (12.9-16.9); Immature Granulocytes % 0.6 % (0-4); Lymphocytes % 13.9 %; Mean Corpuscular HGB Conc 33.5 g/dL (31.6-35.5); Mean Corpuscular Volume 83.7 fL (83.0-100.0); Mean Platelet Volume 11.1 fL (9.4-12.4); Monocytes # 1.2 K/mcL (0.0-1.3); Monocytes % 8.4 %; Neutrophils # 10.6 K/mcL (1.6-8.9); Platelet Count 146 K/mcL (140-400); Red Blood Count 5.03 M/mcL (4.19-5.50); Red Cell Distribution Width 14.3 % (11.5-14.5); Segmented Neutrophils % 72.4 %
[2018-01-04 04:42] LABS: INR 1.3
[2018-01-04 04:51] LABS: BUN/Creatinine Ratio 13 (6-26); Blood Urea Nitrogen 11 mg/dL (8-23); Calcium 8.2 mg/dL (8.6-10.3); Carbon Dioxide 25 mEq/L (23-29); Chloride 100 mEq/L (98-107); Glucose 140 mg/dL (70-105); Magnesium 1.1 mg/dL (1.6-2.6); Osmolality,Calculated 276 (280-300); Potassium 4.5 mEq/L (3.5-5.1); Sodium 132 mEq/L (136-145); eGFR For African Americans > 60 (> 60); eGFR For Non-African Americans > 60 (> 60)
[2018-01-04] MEDS: D5% in 0.9% NACL w KCl 20 MEQ/1,000 ML MLS IVC SCH ×2 (05:41→21:49)
[2018-01-04] MEDS: *HR* Heparin 5,000 UNIT/ML VIAL SQ SCH ×3 (05:42→22:40)
[2018-01-04] MEDS: Ondansetron 4 MG/2 ML VIAL IVP PRN (07:07)
[2018-01-04] MEDS: Famotidine 20 MG TABLET PO SCH ×2 (08:52→22:40)
[2018-01-04] MEDS: Pantoprazole 40 MG VIAL IVP SCH (08:52)
[2018-01-04] MEDS: Cyanocobalamin (B-12) 1,000 MCG TABLET PO SCH (08:52)
[2018-01-04] MEDS: ZINC SULFATE 50 MG PO SCH ×2 (08:52→22:40)
[2018-01-04] MEDS: Gabapentin 300 MG CAPSULE PO SCH ×3 (08:52→22:39)
[2018-01-04] MEDS: Budesonide/Formoterol 80/4.5 MDI IH SCH ×2 (10:34→19:28)
[2018-01-04] MEDS ORDERED: Prochlorperazine 10 MG/2 ML VIAL IVP PRN (11:13)
[2018-01-04] MEDS: Ondansetron 4 MG/2 ML VIAL IVP SCH ×3 (11:31→23:21)
--- NOTE | 2018-01-04 11:35 | Internal Med Progress Note ---
Date of Encounter: 01/04/18 Time of Encounter: 11:27 - Assessment and plan (1) Small bowel obstruction Current Visit: Yes Status: Acute Assessment and plan: . Surgery was consulted, patient had very complicated course during last surgery , had prolonged ICU stay in 2014. Patient also has other comorbidities including COPD atrial fibrillation CAD stated post KS, malnutrition. he is at extremely high risk for surgery. Dr. South recommended "Should surgery become necessary I still recommend referral to a tertiary center. " Appreciated psychiatry help, patient has capacity to make his own decision NG was out on 01/03, he was placed on regular diet. Patient had one episode of vomiting last night, but he did well with breakfast. He started having nausea and vomited a before lunch ( 200 ml of greenish fluids). I spoke to nurse increases Zofran to Q4, add Compazine 10 mg every 6. Hypomagnesemia we will replace 4 gm through IV. (2) Hypokalemia Current Visit: Yes Status: Acute Assessment and plan: resolved (3) Hyponatremia Current Visit: Yes Status: Acute Assessment and plan: conrinue iVF (4) COPD (chronic obstructive pulmonary disease) Current Visit: Yes Status: Acute Assessment and plan: stable, not on home O2 Qualifiers: COPD type: unspecified COPD Qualified Code(s): J44.9 - Chronic obstructive pulmonary disease, unspecified (5) Atrial fibrillation Current Visit: Yes Status: Acute Assessment and plan: well controlled on metoprolol Qualifiers: Atrial fibrillation type: paroxysmal Qualified Code(s): I48.0 - Paroxysmal atrial fibrillation (6) Acute renal failure Current Visit: Yes Status: Acute Assessment and plan: resolved Qualifiers: Acute renal failure type: with other specified pathological lesion Qualified Code(s): N17.8 - Other acute kidney failure (7) DVT prophylaxis Current Visit: Yes Status: Acute Assessment and plan: heparin Sc Q8 (8) Metabolic alkalosis Current Visit: Yes Status: Acute Assessment and plan: resolved (9) Cutaneous fistula Current Visit: Yes Status: Acute Assessment and plan: wound care (10) SIRS (systemic inflammatory response syndrome) Current Visit: Yes Status: Acute Assessment and plan: resolved (11) Severe protein-calorie malnutrition Current Visit: Yes Status: Acute Assessment and plan: from SOB - Time Spent With Patient Total time spent is greater than 50% in coordination of care (as documented) at patient's floor/unit and/or counseling patient: - Subjective Interval history: Mr. Wolf is a 67 year old male with h/o HTN, HLD, Afib on coumadin, COPD, CAD /KS, s/p ostomy 3.5 years ago for perforated bowel who presented to the emergency room with nausea, vomiting, poor PO intake, diffuse abdominal pain, and intermittently increased colostomy output x 2 weeks. Pt is somnolent, but does open eyes and respond to questions. Workup in the emergency department showed an acute kidney injury with serum creatinine 2.21 and associated severe hyponatremia (110) and hypokalemia (2.7). CT abdomen pelvis findings compatible with small bowel obstruction, the transition point just inferior to iliac bifurcation. CT also showed mild dilation of left renal collecting system without obstructed calculus possibly from compression of left ureter by distended small bowel loops. Surgery was consulted, patient had very complicated course during last surgery , had prolonged ICU stay in 2014. Patient also has other comorbidities including COPD atrial fibrillation CAD stated post KS, malnutrition. he is at extremely high risk for surgery. Dr. South recommended "Should surgery become necessary a still recommend referral to a tertiary center" Appreciated psychiatry help, patient has capacity to make his own decision NG was out on 01/03, he was placed on regular diet. Patient had one episode of vomiting last night, but he did well with breakfast. He started having nausea and vomited a before lunch ( 200 ml of greenish fluids). I spoke to nurse increases Zofran to Q4, add Compazine 10 mg every 6. Hypomagnesemia we will replace 4 gm through IV. - Constitutional Vitals: Temp Pulse Resp BP Pulse Ox 98.8 F 94 16 108/71 96 01/04/18 10:19 01/04/18 10:19 01/04/18 10:19 01/04/18 10:19 01/04/18 10:19 General appearance: Present: A&O X 3, pleasant, answers questions appropriately Exam: CONSTITUTIONAL: patient appears as an age appropriate male in no acute distress. EYES Clear sclerae, bilateral pupils are equal, reactive to light. EMOI. RESPIRATORY: No accessory muscle use, bilateral clear to auscultation, no wheezing, no crackles/rales. CARDIOVASCULAR: Regular heart rate, normal S1 and S2, no murmurs GASTROINTESTINAL: bowel sounds present, soft, no tenderness. MUSCULOSKELETAL: Joints in normal range of motion, no clubbing, no edema, no cyanosis. Bilateral peripheral pulses 2+. NEUROLOGIC: CN II to XII are grossly intact, no focal neurological deficit. Internal Medicine: Result - Labs CBC & Chem 7: 01/04/18 03:44 01/04/18 03:44 Labs: Short CBC 01/04/18 Range/Units 03:44 WBC 14.6 H (4.3-11.1) K/mcL Hgb 14.1 (12.9-16.9) g/dL Hct 42.1 (37.5-50.1) % Plt Count 146 (140-400) K/mcL Neutrophils # 10.6 H (1.6-8.9) K/mcL BMP 01/04/18 03:44 Sodium 132 L Potassium 4.5 Chloride 100 Carbon Dioxide 25 BUN 11 Creatinine 0.87 Glucose 140 H Calcium 8.2 L - ABG Interpretation ABG results: PT/INR, D-dimer PT 14.0 Seconds (9.4-12.1) H 01/04/18 03:44 - VTE Documentation of Mechanical Device: Intermittent pneumatic compression device Consult Discharge Plan - Plan Referrals: [facility] [Outside]
--- NOTE | 2018-01-04 11:46 | General Surgery Progress Note ---
Date of Encounter: 01/04/18 Time of Encounter: 11:43 Subjective Narrative: General Surgery Patient with nausea vomiting this morning. Findings consistent with persistent/recurrent small bowel obstruction. It appears that the patient will require surgical intervention and it is very likely that surgery and postop will be extremely complicated. I do not feel that [facility] has the resources to provide adequate care for this patient. Transferred to [facility] or other tertiary facility recommended. Objective Vital Signs - Last 8 Hours Temp Pulse Resp BP Pulse Ox 01/04/18 10:19 98.8 F 94 16 108/71 96 01/04/18 06:43 98.2 F 89 16 105/71 95 01/04/18 04:10 18 94 Intake and Output 01/03/18 01/04/18 01/04/18 23:59 07:59 15:59 Intake Total 1120 / 1120 1100 / 1100 0 / 0 Output Total 975 / 975 450 / 450 10 / 10 Balance 145 / 145 650 / 650 -10 / -10 Intake: IV Fluids 1000 / 1000 1000 / 1000 KCl 20mEq in D5-0.9 NaCl 20 meq 1000 / 1000 1000 / 1000 In 1,000 ml @ 75 mls/hr IVC . [id number] [facility] Rx#:[id number] Oral 120 / 120 100 / 100 0 / 0 Output: Urine 0 / 0 200 / 200 10 / 10 Stool 925 / 925 250 / 250 0 / 0 Emesis 50 / 50 Wound Drainage 0 / 0 0 / 0 Lower Medial Abdomen 0 / 0 0 / 0 Other: Meal Dinner Percent of Meal Consumed 40% Stool Consistency liquid liquid Stool Color Brown Brown # Voids 1 Weight 77.8 kg Patient Weight 01/04/18 23:59 Weight 77.8 kg - Labs 01/04/18 03:44 01/04/18 03:44 Diabetes panel 01/04/18 Range/Units 03:44 Sodium 132 L (136-145) mEq/L Potassium 4.5 (3.5-5.1) mEq/L Chloride 100 (98-107) mEq/L Carbon Dioxide 25 (23-29) mEq/L BUN 11 (8-23) mg/dL Creatinine 0.87 (0.70-1.30) mg/dL Glucose 140 H (70-105) mg/dL Calcium 8.2 L (8.6-10.3) mg/dL Calcium panel 01/04/18 Range/Units 03:44 Calcium 8.2 L (8.6-10.3) mg/dL Pituitary panel 01/04/18 Range/Units 03:44 Sodium 132 L (136-145) mEq/L Potassium 4.5 (3.5-5.1) mEq/L Chloride 100 (98-107) mEq/L Carbon Dioxide 25 (23-29) mEq/L BUN 11 (8-23) mg/dL Creatinine 0.87 (0.70-1.30) mg/dL Glucose 140 H (70-105) mg/dL Calcium 8.2 L (8.6-10.3) mg/dL Adrenal panel 01/04/18 Range/Units 03:44 Sodium 132 L (136-145) mEq/L Potassium 4.5 (3.5-5.1) mEq/L Chloride 100 (98-107) mEq/L Carbon Dioxide 25 (23-29) mEq/L BUN 11 (8-23) mg/dL Creatinine 0.87 (0.70-1.30) mg/dL Glucose 140 H (70-105) mg/dL Calcium 8.2 L (8.6-10.3) mg/dL - VTE Documentation of Mechanical Device: Intermittent pneumatic compression device Consult Discharge Plan - Plan Referrals: [facility] [Outside]
[2018-01-04] MEDS: *HR* Nalbuphine 10 MG/ML AMPUL IVP PRN (17:11)
[2018-01-04] MEDS ORDERED: *HR* Metoprolol 5 MG/5 ML VIAL IVP ONE (20:27)
[2018-01-04 20:29] LABS: ABG Base Excess -1 mEq/L (-2 to 3); ABG HCO3 24 mEq/L (21-27); ABG Oxygen Saturation 97 % (95-98); ABG PCO2 39 mmHg (35-45); ABG PO2 86 mmHg (85-104); ABG TCO2 25 mEq/L (20-26)
[2018-01-04] MEDS ORDERED: 0.9 % Sodium Chloride 1,000 ML IVC SCH (20:30)
[2018-01-04] MEDS ORDERED: 0.9 % Sodium Chloride 1,000 ML IVC ONE ×2 (21:13→23:11)
[2018-01-04 21:47] LABS: Basophils # 0.1 K/mcL (0.0-0.2); Basophils % 0.4 %; Eosinophils # 0.6 K/mcL (0.0-0.6); Eosinophils % 3.3 %; Hematocrit 48.9 % (37.5-50.1); Hemoglobin 15.5 g/dL (12.9-16.9); Lymphocytes # 1.3 K/mcL (0.6-4.6); Lymphocytes % 6.9 %; Mean Corpuscular HGB Conc 31.7 g/dL (31.6-35.5); Mean Corpuscular Hemoglobin 27.7 pg (28.0-33.3); Mean Corpuscular Volume 87.5 fL (83.0-100.0); Mean Platelet Volume 10.6 fL (9.4-12.4); Monocytes # 1.8 K/mcL (0.0-1.3); Monocytes % 9.7 %; Neutrophils # 14.4 K/mcL (1.6-8.9); Platelet Count 159 K/mcL (140-400); Red Blood Count 5.59 M/mcL (4.19-5.50); Red Cell Distribution Width 14.3 % (11.5-14.5); Segmented Neutrophils % 78.7 %
[2018-01-04] MEDS ORDERED: 0.9 % Sodium Chloride 500 ML IVC ONE (21:47)
[2018-01-04 22:07] LABS: Alanine Aminotransferase 7 Units/L (7-52); Albumin 3.5 g/dL (3.5-5.7); Albumin/Globulin Ratio 1.2 (1.1-2.2); Alkaline Phosphatase 80 Units/L (34-104); Aspartate Amino Transferase 10 Units/L (13-39); BUN/Creatinine Ratio 13 (6-26); Bilirubin,Total 0.6 mg/dL (0.3-1.0); Blood Urea Nitrogen 11 mg/dL (8-23); Calcium 8.4 mg/dL (8.6-10.3); Carbon Dioxide 26 mEq/L (23-29); Chloride 99 mEq/L (98-107); Glucose 129 mg/dL (70-105); Magnesium 2.2 mg/dL (1.6-2.6); Osmolality,Calculated 277 (280-300); Potassium 4.6 mEq/L (3.5-5.1); Sodium 133 mEq/L (136-145); Total Protein 6.5 g/dL (6.4-8.9); eGFR For African Americans > 60 (> 60); eGFR For Non-African Americans > 60 (> 60)
[2018-01-04] MEDS ORDERED: 0.9 % Sodium Chloride 2,000 ML ONE (23:23)
[2018-01-04] MEDS ORDERED: Levalbuterol Neb 1.25 MG/3 ML ONE (23:42)
[2018-01-04] MEDS: Levalbuterol Neb 1.25 MG/3 ML IH SCH (23:46)
[2018-01-04 23:51] LABS: Bilirubin,Urine Negative (Negative); Blood,Urine Large (Negative); Clarity,Urine Clear (Clear); Color,Urine Yellow (Yellow); Glucose,Urine (UA) 100 mg/dL (Normal); Ketones,Urine Negative (Negative); Leukocyte Esterase,Urine Small (Negative); Nitrite,Urine Negative (Negative); PH,Urine 5.5 pH Units (5.0-8.0); Protein,Urine 100 mg/dL (Neg-Trace); Specific Gravity,Urine 1.025 (1.010-1.025); Urobilinogen,Urine Normal (Normal)
[2018-01-04] MEDS ORDERED: Furosemide 40 MG/4 ML VIAL IVP ONE (23:51)
--- NOTE | 2018-01-04 23:54 | Event Note ---
Date of Encounter: 01/05/18 Time of Encounter: 20:01 Alerted by pts. nurse MERLYN Milton that patient woke up with difficulty breathing and SPO2 of 66%. Patient was placed on rebreather mask which increased SPO2 95% . Pulse was 145. Went to see patient who is sitting on side of bed with mild respiratory distress. Looked at pts. labs which showed WBC of 14.6 from 03:44 and HR of 145 which met SIRS criteria. 2.5 mg IVP Lopressor ordered to address tachycardia. 1 mg administered when IV access was lost in left arm. New access gained in pts. right arm. Remainder of Lopressor administered. HR was now in 120s. Pts. magnesium level also found to be 1.4 at 03:44. Pt. received 4 gm of magnesium IVPB @ 10:36. New magnesium level ordered which showed 2.2 @21:32. Lactic acid @20:41 was 2.5. Stat lactic acid ordered which was 2.1 @22:07 following 500 mL 0.9 NS bolus. During examination, patient was alert and oriented x3, awake and able to follow commands and directions, and expressed understanding to our discussion with him. Bilateral LEs showed some mottling. Stat ABG ordered which was normal. Blood cultures x2 ordered stat. IVPB vancomycin ordered w/Cipro and Flagyl d/t SBO. Stat EKG showed sinus tachycardia with indeterminate axis. Pattern consistent with pulmonary disease. Possible right ventricular hypertrophy and septal myocardial infarction of indeterminate age. HR 137. Discussed case w/Dr. Collins who went to see pt. with me. Discussed Surgery's recommendation for transfer to tertiary hospital for more adequate care of pts. complicated condition. Pt. stated that he did not want to be transferred to [facility] or any other hospital. Pt. stated that he wanted to have any procedures done here at [facility]. Several more attempts were made to convince pt. to allow transfer to [facility] or other tertiary hospital d/ t his complex condition, but pt. continued to refuse. Pt. was informed that he may require intubation if O2 status continued to change/decline. Pt. expressed understanding and confirmed his decision to stay. Pt. signed transfusion papers if transfusion becomes necessary. Called Bed Management to secure ICU bed for pt. d/t changing status. IC11 bed confirmed. Nurse instructed to notify pts. guardian/friend Lian Ramos about pts. move to ICU. Ms. Ramos notified at 21: 44. Pt. moved from 3A[address] Dr[address] Lima notified that pts. HR was now again in 150s in ICU. Dr. Lima went to assess pt. w/decision to DC Cipro and Flagyl and continue IVPB Zosyn and vancomycin w/Pharmacy dosing. Nurse in ICU reported SOB and crackles in pts. lungs on auscultation as well as fever of 102.3F. 1V CXR ordered. UA ordered. Timed lactic acids ordered. SpO2 90% on 15L via Oxymask. Pt. to be intubated if medically necessary. Pt. is currently Full Code. Pt. to be monitored closely in ICU.
[2018-01-04 23:57] LABS: Hyaline Casts,Urine Few per lpf (None-Few); RBC,Urine TNTC per hpf (0-3)
[2018-01-04 23:58] LABS: Bacteria,Urine Moderate per hpf (None-Few)
[2018-01-05] MEDS ORDERED: MetroNIDAZOLE 500 MG/100 ML 500 MG/100 ML BAG IVPB SCH
[2018-01-05] MEDS: Acetaminophen IV 500 MG/50 ML INFUS..BTL IVPB SCH ×2 (00:15→05:12)
[2018-01-05] MEDS: 0.9 % Sodium Chloride 1,000 ML IVC SCH ×4 (00:31→20:01)
[2018-01-05] MEDS: Ondansetron 4 MG/2 ML VIAL IVP SCH ×7 (02:03→23:18)
[2018-01-05] MEDS: Piperacillin/Tazobactam 3.375 GM in 0.9 % Sodium Chloride Mini Bag 100 ML IVPB SCH ×4 (02:10→23:18)
[2018-01-05 02:14] LABS: Basophils % 0.2 %; Eosinophils # 0.3 K/mcL (0.0-0.6); Eosinophils % 1.7 %; Hematocrit 44.1 % (37.5-50.1); Hemoglobin 14.1 g/dL (12.9-16.9); Immature Granulocytes % 0.9 % (0-4); Lymphocytes # 0.8 K/mcL (0.6-4.6); Lymphocytes % 4.1 %; Mean Corpuscular Hemoglobin 27.6 pg (28.0-33.3); Mean Corpuscular Volume 86.3 fL (83.0-100.0); Mean Platelet Volume 10.6 fL (9.4-12.4); Monocytes # 1.4 K/mcL (0.0-1.3); Monocytes % 7.2 %; Platelet Count 129 K/mcL (140-400); Red Blood Count 5.11 M/mcL (4.19-5.50); Red Cell Distribution Width 14.3 % (11.5-14.5); Segmented Neutrophils % 85.9 %
[2018-01-05 02:24] LABS: INR 1.3; Prothrombin Time 14.6 Seconds (9.4-12.1)
[2018-01-05 02:34] LABS: BUN/Creatinine Ratio 15 (6-26); Blood Urea Nitrogen 12 mg/dL (8-23); Calcium 7.5 mg/dL (8.6-10.3); Carbon Dioxide 21 mEq/L (23-29); Chloride 104 mEq/L (98-107); Glucose 121 mg/dL (70-105); Magnesium 1.7 mg/dL (1.6-2.6); Osmolality,Calculated 275 (280-300); Potassium 5.2 mEq/L (3.5-5.1); Sodium 132 mEq/L (136-145); eGFR For African Americans > 60 (> 60); eGFR For Non-African Americans > 60 (> 60)
[2018-01-05] MEDS: Levalbuterol Neb 1.25 MG/3 ML IH SCH ×4 (03:46→21:38)
[2018-01-05] MEDS ORDERED: Acetaminophen 650 MG RECTAL SUPP RC PRN (05:23)
[2018-01-05] MEDS: *HR* Heparin 5,000 UNIT/ML VIAL SQ SCH ×3 (05:51→21:01)
[2018-01-05] MEDS ORDERED: 0.9 % Sodium Chloride 1,000 ML IVC ONE (06:11)
[2018-01-05] MEDS ORDERED: Acetaminophen 325 MG RECTAL SUPP RC PRN (06:16)
--- NOTE | 2018-01-05 06:28 | Event Note ---
Date of Encounter: 01/05/18 Time of Encounter: 06:00 Pt has fever, leukocytosis, tachycardia, elevated lactate level. Consider sepsis. So far UA shows UTI. Empirically started vanco and zosyn and IVF was given. Tachycardia has improved but HR still high ( from 150 down to 105). Will cont abx and IVF. Pt has episode of desaturation at around 11pm, which is improved after one dose of lasix 40mg iv. Pt has borderline hypotension this morning, will give another bolus and consult Critical care. Keep pt in ICU and close monitoring. Blood culture was repeated. Follow up blood and urine culture.
--- NOTE | 2018-01-05 07:20 | Pulmonology Consult Note ---
Date of Encounter: 01/05/18 Time of Encounter: 07:20 History of Present Illness Consult date: 01/05/18 Requesting physician: [place] Lima Reason for consult: dyspnea Chief complaint: dyspnea, sepsis Past Med Surg Social Fam HX - Past Medical History Medical history: atrial fibrillation, COPD, hyperlipidemia, hypertension, myocardial infarction, other Additional medical history: Perforated Bowel Psychiatric history: no psych history - Past Surgical History Surgical History: colostomy - Social History Smoking Status: Current every day smoker Packs per day: 2 Smokeless Tobacco Status: No Alcohol use: none Drug use: none Medications and Allergies Acetaminophen [Tylenol] 1,000 mg PO TID PRN 01/16/17 [History] Albuterol Sulfate [Albuterol Inhaler] 2 puff IH QID PRN 01/16/17 [History] Aloe Vera/Collagen [Aloe [place] Cleansing Foam] 1 appl TP DAILY 01/16/17 [History ] Ascorbate Calcium [Vitamin C] 500 mg PO DAILY 01/16/17 [History] Docusate [Colace] 100 mg PO BID 01/16/17 [History] Furosemide [Lasix] 40 mg PO DAILY 01/16/17 [History] Gabapentin [Neurontin] 600 mg PO TID 01/16/17 [History] Metoprolol [Lopressor] 50 mg PO BID 01/16/17 [History] Multivitamin [Multi-Day Vitamins] 1 each PO DAILY 01/16/17 [History] Rivaroxaban [Xarelto] 20 mg PO DAILY 01/16/17 [History] Simvastatin [Zocor] 20 mg PO HS 01/16/17 [History] Sod Chloride/B-6/Zinc Acet/Ca [Wound Cleanser] 3 - 5 spray IR DAILY 01/16/17 [ History] Vit C/E/Zn/Coppr/Lutein/Zeaxan [Preservision Areds 2 Softgel] 1 cap PO BID 01/16 [History] raNITIdine HCl [Zantac] 150 mg PO BID 01/16/17 [History] Albuterol Neb [Proventil Neb] 2.5 mg IH Q4HR 12/31/17 [History] Budesonide/Formoterol 80/4.5 [Symbicort 80/4.5] 1 puff IH BID 12/31/17 [History ] Buprenorphine [Butrans] 1 patch TD Q7D 12/31/17 [History] Cyanocobalamin (Vitamin B-12) [Vitamin B-12] 1,000 mcg SL DAILY 12/31/17 [ History] Diclofenac Sodium [Voltaren] 1 appl TP QID 12/31/17 [History] Lactobacillus Acidophilus [Acidophilus Lactobacillus] 1 cap PO DAILY 12/31/17 [ History] Nystatin POWDER [Nystop] 1 appl TP BID 12/31/17 [History] Tramadol HCl [Ultram] 50 mg PO Q6H PRN 12/31/17 [History] Triamcinolone Acet 0.1% CRM [Kenalog] 1 appl TP BID 12/31/17 [History] Zinc Sulfate [Zinc-15] 50 mg PO BID 12/31/17 [History] 3 Allergy/AdvReac Type Severity Reaction Status Date / Time latex AdvReac See Verified 01/16/17 21:16 Comments All Systems: The remainder of the systems were reviewed and are negative Physical Examination Vital Signs: Vital Signs, Last 4 Hours Temp Pulse Resp BP Pulse Ox 01/05/18 06:00 104 22 84/53 96 01/05/18 05:00 114 22 95/57 94 01/05/18 04:00 102.2 F H 105 20 91/54 97 01/05/18 03:46 20 100 Results - Laboratory Findings CBC and BMP: 01/05/18 02:03 01/05/18 02:03 ABG ABG pH 7.40 pH Units (7.32-7.45) 01/04/18 20:25 ABG pCO2 39 mmHg (35-45) 01/04/18 20:25 ABG pO2 86 mmHg (85-104) 01/04/18 20:25 ABG O2 Saturation 97 % (95-98) 01/04/18 20:25 PT/INR, D-dimer PT 14.6 Seconds (9.4-12.1) H 01/05/18 02:03 Abnormal lab findings: Abnormal lab results WBC 18.7 K/mcL (4.3-11.1) H 01/05/18 02:03 MCH 27.6 pg (28.0-33.3) L 01/05/18 02:03 Plt Count 129 K/mcL (140-400) L 01/05/18 02:03 Neutrophils # 16.0 K/mcL (1.6-8.9) H 01/05/18 02:03 Monocytes # 1.4 K/mcL (0.0-1.3) H 01/05/18 02:03 PT 14.6 Seconds (9.4-12.1) H 01/05/18 02:03 APTT 36.8 Seconds (26.0-36.0) H 12/30/17 22:40 Sodium 132 mEq/L (136-145) L 01/05/18 02:03 Potassium 5.2 mEq/L (3.5-5.1) H 01/05/18 02:03 Carbon Dioxide 21 mEq/L (23-29) L 01/05/18 02:03 Glucose 121 mg/dL (70-105) H 01/05/18 02:03 Calculated Osmolality 275 (280-300) L 01/05/18 02:03 Calcium 7.5 mg/dL (8.6-10.3) L 01/05/18 02:03 AST 10 Units/L (13-39) L 01/04/18 21:32 Urine Protein 100 mg/dL (Neg-Trace) H 01/04/18 23:11 Urine Glucose (UA) 100 mg/dL (Normal) H 01/04/18 23:11 Urine Blood Large (Negative) H 01/04/18 23:11 Ur Leukocyte Esterase Small (Negative) H 01/04/18 23:11 Urine Microscopic RBC TNTC per hpf (0-3) H 01/04/18 23:11 Urine Microscopic WBC 5-15 per hpf (0-3) H 01/04/18 23:11 Ur Squamous Epith Cells Many per lpf (None-Few) H 12/30/17 23:12 Urine Bacteria Moderate per hpf (None-Few) H 01/04/18 23:11 Ur Culture Indicated? YES (NO) A 01/04/18 23:11 Urine Osmolality 269 mOsm/kg (300-1090) L 12/31/17 11:00 Stool Occult Blood Positive (Negative) A 12/30/17 23:30 - Clinical Findings Intake & Output: Intake & Output 01/04/18 01/04/18 01/05/18 15:59 23:59 07:59 Intake Total 340 / 340 800 / 800 1450 / 1450 Output Total 10 / 10 0 / 0 750 / 750 Balance 330 / 330 800 / 800 700 / 700 Weight 76.8 kg Consult Discharge Plan - Plan Referrals: [facility] [Outside]
[2018-01-05] MEDS: Pantoprazole 40 MG VIAL IVP SCH (07:44)
[2018-01-05] MEDS: Cyanocobalamin (B-12) 1,000 MCG TABLET PO SCH (07:45)
[2018-01-05] MEDS: Famotidine 20 MG TABLET PO SCH ×2 (07:45→20:00)
[2018-01-05] MEDS: ZINC SULFATE 50 MG PO SCH ×2 (07:45→19:06)
[2018-01-05] MEDS: Gabapentin 300 MG CAPSULE PO SCH ×3 (07:45→20:00)
--- NOTE | 2018-01-05 07:49 | Pulmonology Progress Note ---
<Xander Kinsey - Last Filed: 01/05/18 09:22> Date of Encounter: 01/05/18 Time of Encounter: 07:49 Assessment and Plan (1) Small bowel obstruction Current Visit: Yes Status: Acute 1. This is the source of the patient's continued stay in the hospital 2. Has not responded to medical management and will need surgical intervention. 3. patient's surgeon does not feel [facility] is able to care for this patient after his apparently (now necessary) operation and would be best transferred to a facility with a SICU 4. Patient has intermittently tolerated PO but became tachypnic and tachycardic last night and sent back down to the ICU 5. Dr. Jung contacted this AM, per patient's request, to discuss transfer to tertiary care facility for further management 6. Patient will likely be transferred later today, will continue to monitor vitals/labs/abdominal exam (2) Sepsis Current Visit: No Status: Acute 1. Unclear source at this time 2. Night team suspected possible UTI but urine does not look highly infected. More likely source abdominal from SBO and multiple areas of inflammation seen on previous abdominal CT. 3. Patient was re-cultured 6/ AM with blood and urine and started on ABX 4. Patient on Zosyn which I do think will have adequate intra-abdominal coverage and also on Vanco which can be continued today but can likely be discontinued upon transfer. Qualifiers: Sepsis type: sepsis due to unspecified organism Qualified Code(s): A41.9 - Sepsis, unspecified organism Subjective Principal diagnosis: hyponatremia, metabolic alkalosis Interval history: patient originally in ICU, transferred to floor and now back to ICU. Became hypoxic and tachycardic last night. WBC slightly elevated, lactic acid was mildly elevated at 2.5, trending down. Got IVF and lopressor by hospitalist team overnight. Night team thought patient may have had UTI so started on ABX and re-cultured blood/urine. Sent here for further management. Patient is a Dr. Jung patient and after reviewing his note from yesterday, did recommend transfer to [facility] for likely surgical management of his SBO but patient was refusing at that time. He is now amendable to transfer and wanted to speak with Dr. Jung. I spoke with Dr. Jung and he will be in to see the patient today and then we will arrange transfer to [facility]. It is felt patient will likely need SICU if he is an operative candidate. Objective PUL Vital signs: Last Vital Signs Temp 102.2 F H 01/05/18 04:00 Pulse 104 01/05/18 06:00 Resp 22 01/05/18 06:00 BP 84/53 01/05/18 06:00 Pulse Ox 96 01/05/18 06:00 General appearance: no acute distress Eyes: nonicteric ENT: oropharynx moist Neck: supple Effort: normal Auscultation: bilateral: diminished breath sounds Cardiovascular: regular rate and rhythm Gastrointestinal: hypoactive bowel sounds, soft, tender, other (multiple healed surgical scars, with end sigmoid colostomy, midline enteric fistula with ostomy bag, no guarding, slightly distended per patient ) Integumentary: normal Extremities: no cyanosis Musculoskeletal: no deformities normal mental status mood appropriate, affect normal Results - Laboratory Findings CBC and BMP: 01/05/18 02:03 01/05/18 02:03 ABG ABG pH 7.40 pH Units (7.32-7.45) 01/04/18 20:25 ABG pCO2 39 mmHg (35-45) 01/04/18 20:25 ABG pO2 86 mmHg (85-104) 01/04/18 20:25 ABG O2 Saturation 97 % (95-98) 01/04/18 20:25 PT/INR, D-dimer PT 14.6 Seconds (9.4-12.1) H 01/05/18 02:03 Abnormal lab findings: Abnormal lab results WBC 18.7 K/mcL (4.3-11.1) H 01/05/18 02:03 MCH 27.6 pg (28.0-33.3) L 01/05/18 02:03 Plt Count 129 K/mcL (140-400) L 01/05/18 02:03 Neutrophils # 16.0 K/mcL (1.6-8.9) H 01/05/18 02:03 Monocytes # 1.4 K/mcL (0.0-1.3) H 01/05/18 02:03 PT 14.6 Seconds (9.4-12.1) H 01/05/18 02:03 APTT 36.8 Seconds (26.0-36.0) H 12/30/17 22:40 Sodium 132 mEq/L (136-145) L 01/05/18 02:03 Potassium 5.2 mEq/L (3.5-5.1) H 01/05/18 02:03 Carbon Dioxide 21 mEq/L (23-29) L 01/05/18 02:03 Glucose 121 mg/dL (70-105) H 01/05/18 02:03 Calculated Osmolality 275 (280-300) L 01/05/18 02:03 Calcium 7.5 mg/dL (8.6-10.3) L 01/05/18 02:03 AST 10 Units/L (13-39) L 01/04/18 21:32 Urine Protein 100 mg/dL (Neg-Trace) H 01/04/18 23:11 Urine Glucose (UA) 100 mg/dL (Normal) H 01/04/18 23:11 Urine Blood Large (Negative) H 01/04/18 23:11 Ur Leukocyte Esterase Small (Negative) H 01/04/18 23:11 Urine Microscopic RBC TNTC per hpf (0-3) H 01/04/18 23:11 Urine Microscopic WBC 5-15 per hpf (0-3) H 01/04/18 23:11 Ur Squamous Epith Cells Many per lpf (None-Few) H 12/30/17 23:12 Urine Bacteria Moderate per hpf (None-Few) H 01/04/18 23:11 Ur Culture Indicated? YES (NO) A 01/04/18 23:11 Urine Osmolality 269 mOsm/kg (300-1090) L 12/31/17 11:00 Stool Occult Blood Positive (Negative) A 12/30/17 23:30 - Clinical Findings Intake & Output: Intake & Output 01/04/18 01/04/18 01/05/18 15:59 23:59 07:59 Intake Total 340 / 340 800 / 800 1450 / 1450 Output Total 10 / 10 0 / 0 750 / 750 Balance 330 / 330 800 / 800 700 / 700 Weight 76.8 kg - VTE Documentation of Mechanical Device: Intermittent pneumatic compression device Consult Discharge Plan - Plan Referrals: [facility] [Outside] <Haydee Ross - Last Filed: 01/05/18 14:27> Date of Encounter: 01/05/18 Objective PUL Vital signs: Last Vital Signs Temp 98.1 F 01/05/18 11:00 Pulse 93 06/09/18 14:00 Resp 21 01/05/18 14:00 BP 106/63 01/05/18 14:00 Pulse Ox 100 01/05/18 14:00 Results - Laboratory Findings CBC and BMP: 01/05/18 02:03 01/05/18 02:03 ABG ABG pH 7.40 pH Units (7.32-7.45) 01/04/18 20:25 ABG pCO2 39 mmHg (35-45) 01/04/18 20:25 ABG pO2 86 mmHg (85-104) 01/04/18 20:25 ABG O2 Saturation 97 % (95-98) 01/04/18 20:25 PT/INR, D-dimer PT 14.6 Seconds (9.4-12.1) H 01/05/18 02:03 Abnormal lab findings: Abnormal lab results WBC 18.7 K/mcL (4.3-11.1) H 01/05/18 02:03 MCH 27.6 pg (28.0-33.3) L 01/05/18 02:03 Plt Count 129 K/mcL (140-400) L 01/05/18 02:03 Neutrophils # 16.0 K/mcL (1.6-8.9) H 01/05/18 02:03 Monocytes # 1.4 K/mcL (0.0-1.3) H 01/05/18 02:03 PT 14.6 Seconds (9.4-12.1) H 01/05/18 02:03 APTT 36.8 Seconds (26.0-36.0) H 12/30/17 22:40 Sodium 132 mEq/L (136-145) L 01/05/18 02:03 Potassium 5.2 mEq/L (3.5-5.1) H 01/05/18 02:03 Carbon Dioxide 21 mEq/L (23-29) L 01/05/18 02:03 Glucose 121 mg/dL (70-105) H 01/05/18 02:03 Calculated Osmolality 275 (280-300) L 01/05/18 02:03 Calcium 7.5 mg/dL (8.6-10.3) L 01/05/18 02:03 AST 10 Units/L (13-39) L 06/08/18 21:32 Urine Protein 100 mg/dL (Neg-Trace) H 01/04/18 23:11 Urine Glucose (UA) 100 mg/dL (Normal) H 01/04/18 23:11 Urine Blood Large (Negative) H 01/04/18 23:11 Ur Leukocyte Esterase Small (Negative) H 01/04/18 23:11 Urine Microscopic RBC TNTC per hpf (0-3) H 01/04/18 23:11 Urine Microscopic WBC 5-15 per hpf (0-3) H 01/04/18 23:11 Ur Squamous Epith Cells Many per lpf (None-Few) H 12/30/17 23:12 Urine Bacteria Moderate per hpf (None-Few) H 01/04/18 23:11 Ur Culture Indicated? YES (NO) A 01/04/18 23:11 Urine Osmolality 269 mOsm/kg (300-1090) L 12/31/17 11:00 Stool Occult Blood Positive (Negative) A 12/30/17 23:30 - Clinical Findings Intake & Output: Intake & Output 01/04/18 01/05/18 01/05/18 23:59 07:59 15:59 Intake Total 800 / 800 1450 / 1450 1100 / 1100 Output Total 0 / 0 750 / 750 250 / 250 Balance 800 / 800 700 / 700 850 / 850 Weight 76.8 kg - Attending Attestation I examined this patient and my medical decision-making was reviewed with the Resident Physician. I agree with the documented findings, disposition and treatment plan as described except to the extent set forth below. Patient seen and examined. Labs, radiology, chart personally reviewed. 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 Patient is at high risk of deterioration and pulmonary edema as well as acute lung injury from systemic inflammatory response syndrome from his underlying sepsis-like picture. Cardiovascular: Patient relatively stable at this time. GI: Nutrition per dietary and GI prophylaxis per routine. Patient has very complicated post abdominal surgeries and was recommended patient to be transferred to [facility] for further care. Transferring patient to [facility] is in process and I have spoken to the patient and he wanted to talk to surgeon before the transfer. Heme: DVT prophylaxis per routine ID: Continue antibiotics and plan to de-escalation Renal; urine out put and renal funtion reviewed Endorcine: blood glucose is monitored Lines: all lines checked and no evidence of infections Skin: skin care to prevent pressure ulcers per nursing routine care
[2018-01-05] MEDS: Budesonide/Formoterol 80/4.5 MDI IH SCH ×2 (10:58→21:38)
--- NOTE | 2018-01-05 11:59 | General Surgery Progress Note ---
Date of Encounter: 01/05/18 Time of Encounter: 11:25 Subjective Narrative: General Surgery - called to see patient, at the patient's request, following his transfer to ICU The patient apparently developed respiratory distress, difficulty in breathing, and significant hypoxia with an SPO2 of 66% during the night. There was an accompanying tachycardia with fevers high as 102.2. Sepsis was a significant concern. Patient was transferred to ICU for further management and care. This a.m., the patient was feeling much better; he denies any abdominal pain ; the patient has remained afebrile, pulse is diminished, 93-94; Respiratory rate 16, blood pressure ranging 89/54 to 108/59. SPO2 is 97% on 8 L/m oxymask The patient wished to discuss his surgical options and my estimation/ predictions of his outcome. The patient no longer has surgical options. He is demonstrating a bowel obstruction which will not resolve without surgery. The events last night may be due to the patient's repeated emesis during the day with possible aspiration. Based on the patient's history following surgery in 2014, exploratory celiotomy is anticipated to be difficult and high risk related to the patient's multiple comorbidities. These were discussd in detail with the patient once again. These include pulmonary risks with the likelihood of prolonged postoperative intubation and mechanical ventilation; cardiac risks which include recurrent UT or dysrhythmia; renal risks which may require dialysis or Lesly; infectious risks including intra-abdominal abscess(es); injury to adjacent structures such as other loops small bowel, colon, ureters and urinary bladder. The patient's nutritional status is compromised. The patient will likely require total parenteral nutrition until bowel function resumes postop. The surgery is anticipated to be difficult and with the present multiple comorbidities, the patient may require prolonged intensive care. Several of these issues could warrant 24-7 coverage and care by a multitude of specialties. I again recommend referral to a tertiary care center in order to provide the best opportunity for this patient to recover following what I expect to be a difficult and potentially lengthy exploratory celiotomy. Objective Vital Signs - Last 8 Hours Temp Pulse Resp BP Pulse Ox 01/05/18 10:58 16 97 01/05/18 10:00 93 16 96/56 96 01/05/18 09:00 94 18 108/59 96 01/05/18 08:00 94 18 89/54 98 01/05/18 07:00 98.4 F 93 20 90/51 98 01/05/18 06:00 104 22 84/53 96 01/05/18 05:00 114 22 95/57 94 01/05/18 04:00 102.2 F H 105 20 91/54 97 01/05/18 03:46 20 100 Intake and Output 01/04/18 01/05/18 01/05/18 23:59 07:59 15:59 Intake Total 800 / 800 1450 / 1450 1000 / 1000 Output Total 0 / 0 750 / 750 250 / 250 Balance 800 / 800 700 / 700 750 / 750 Intake: IV Fluids 800 / 800 1450 / 1450 1000 / 1000 0.9 % Sodium Chloride 1,000 ML 0 / 0 1000 / 1000 1000 / 1000 @ 125 mls/hr IVC .Q8H [facility] Rx#: [id number] KCl 20mEq in D5-0.9 NaCl 20 meq 800 / 800 In 1,000 ml @ 75 mls/hr IVC . [id number] ASHLEY Rx#:[id number] Ofirmev 1,000 mg/100 ml 500 mg 100 / 100 In 50 ml @ 200 mls/hr IVPB Q6H [facility] Rx#:[id number] Zosyn 3.375 GM In 0.9 % Sodium 100 / 100 Chloride (Mini-Bag +) 100 ML @ 25 mls/hr IVPB Q8HR [facility] Rx#: [id number] Vancocin 1,500 MG In 0.9 % 250 / 250 Sodium Chloride 250 ML @ 166.67 mls/hr IVPB Q12H [facility] Rx#: [id number] Oral 0 / 0 Output: Urine 0 / 0 Catheter 750 / 750 250 / 250 Wound Drainage 0 / 0 Lower Medial Abdomen 0 / 0 Other: Weight 76.8 kg Blood Glucose* 96 Patient Weight 01/05/18 23:59 Weight 76.8 kg - Labs 01/05/18 02:03 01/05/18 02:03 Diabetes panel 01/04/18 01/05/18 Range/Units 21:32 02:03 Sodium 133 L 132 L (136-145) mEq/L Potassium 4.6 5.2 H (3.5-5.1) mEq/L Chloride 99 104 (98-107) mEq/L Carbon Dioxide 26 21 L (23-29) mEq/L BUN 11 12 (8-23) mg/dL Creatinine 0.86 0.78 (0.70-1.30) mg/dL Glucose 129 H 121 H (70-105) mg/dL Calcium 8.4 L 7.5 L (8.6-10.3) mg/dL AST 10 L (13-39) Units/L ALT 7 (7-52) Units/L Alkaline Phosphatase 80 (34-104) Units/L Albumin 3.5 (3.5-5.7) g/dL Calcium panel 01/04/18 01/05/18 Range/Units 21:32 02:03 Calcium 8.4 L 7.5 L (8.6-10.3) mg/dL Albumin 3.5 (3.5-5.7) g/dL Pituitary panel 01/04/18 01/05/18 Range/Units 21:32 02:03 Sodium 133 L 132 L (136-145) mEq/L Potassium 4.6 5.2 H (3.5-5.1) mEq/L Chloride 99 104 (98-107) mEq/L Carbon Dioxide 26 21 L (23-29) mEq/L BUN 11 12 (8-23) mg/dL Creatinine 0.86 0.78 (0.70-1.30) mg/dL Glucose 129 H 121 H (70-105) mg/dL Calcium 8.4 L 7.5 L (8.6-10.3) mg/dL Adrenal panel 18 01/05/18 Range/Units 21:32 02:03 Sodium 133 L 132 L (136-145) mEq/L Potassium 4.6 5.2 H (3.5-5.1) mEq/L Chloride 99 104 (98-107) mEq/L Carbon Dioxide 26 21 L (23-29) mEq/L BUN 11 12 (8-23) mg/dL Creatinine 0.86 0.78 (0.70-1.30) mg/dL Glucose 129 H 121 H (70-105) mg/dL Calcium 8.4 L 7.5 L (8.6-10.3) mg/dL Total Bilirubin 0.6 (0.3-1.0) mg/dL AST 10 L (13-39) Units/L ALT 7 (7-52) Units/L Alkaline Phosphatase 80 (34-104) Units/L Albumin 3.5 (3.5-5.7) g/dL - VTE Documentation of Mechanical Device: Intermittent pneumatic compression device Consult Discharge Plan - Plan Referrals: [facility] [Outside]
[2018-01-05] MEDS: *HR* Nalbuphine 10 MG/ML AMPUL IVP PRN (14:33)
[2018-01-05] MEDS: Patient Taking Own Medication 1 EACH MC SCH (14:34)
--- NOTE | 2018-01-05 15:33 | Event Note ---
<Xander Kinsey - Last Filed: 01/05/18 15:17> Date of Encounter: 01/05/18 Time of Encounter: 15:17 There has been significant discussion with the patient and Dr. Jung about his condition, recommended treatment and prognosis. The patient was brought back to the ICU yet again today for SIRS criteria although no obvious source has been found and patient is doing well currently. Dr. Jung, as in his previous notes from the last several days, is recommending transfer to tertiary care facility for likely surgical repair of the patient's small bowel obstruction. He came and evaluated the patient today, personally, at the patient's request and after a lengthy discussion between them (see Dr. Jung' s note from today's date) still thought transfer to a tertiary care facility would be the next step in this patient's care. Therefore, I consulted with [facility] who after several hours of back and forth between [facility], [facility], and [facility] determined that the [facility] would be unable to authorize transfer from this facility to [facility] and the patient would possibly be stuck with paying his entire hospital bill for both [facility] and [facility], out-of- pocket. We were told this is because the [facility] in [place] had no way of contacting the appropriate people to get this approved until Sunday. I even contacted the [facility] in [place], [place] who faxed us a Non-VA hospitalization form but this was not adequate for [facility]. We had out social work case manager contact the [facility] and [facility] and the same conclusion was reached. Additionally, I spoke with Dr. Nish Sheffield, the on-call SICU surgeon at [facility] who reviewed all [address] imaging (after they requested we push it to them in PACS) and stated that it did not look like the patient was obstructed and that he likely did NOT need surgery at all and would recommend continued observation. Dr. Sheffield stated that he thought the patient would likely need colonoscopy to determine if there was a distal obstruction versus other process and that this could potentially be done as an outpatient. He did accept the patient for transfer however, the patient felt uncomfortable going there if there was the potential that the [facility] would not pay for it. Therefore, after literally several hours of [id number] conversations between all three facilities, we have decided to keep the patient here for further observation until Sunday when the [facility] can be contacted to determine if they will pay for transfer to [facility]. The patient reports feeling fairly well right now and has been having no vomiting so I do think this is reasonable. He will remain in the ICU for further monitoring. <Haydee Ross M - Last Filed: 01/06/18 08:56> Date of Encounter: 01/06/18 I examined this patient and my medical decision-making was reviewed with the Resident Physician. I agree with the documented findings, disposition and treatment plan as described except to the extent set forth below.
[2018-01-06] MEDS: 0.9 % Sodium Chloride 1,000 ML IVC SCH ×2 (01:15→11:44)
[2018-01-06 02:42] LABS: Basophils % 0.2 %; Eosinophils # 0.4 K/mcL (0.0-0.6); Eosinophils % 2.9 %; Hematocrit 37.8 % (37.5-50.1); Lymphocytes # 1.1 K/mcL (0.6-4.6); Lymphocytes % 8.1 %; Mean Corpuscular Hemoglobin 27.8 pg (28.0-33.3); Mean Corpuscular Volume 86.9 fL (83.0-100.0); Mean Platelet Volume 10.7 fL (9.4-12.4); Monocytes # 1.3 K/mcL (0.0-1.3); Monocytes % 9.4 %; Neutrophils # 10.6 K/mcL (1.6-8.9); Platelet Count 109 K/mcL (140-400); Red Blood Count 4.35 M/mcL (4.19-5.50); Red Cell Distribution Width 14.5 % (11.5-14.5); Segmented Neutrophils % 78.4 %
[2018-01-06 02:45] LABS: Hemoglobin 12.1 g/dL (12.9-16.9)
[2018-01-06 02:49] LABS: INR 1.8; Prothrombin Time 19.7 Seconds (9.4-12.1)
[2018-01-06 03:01] LABS: BUN/Creatinine Ratio 16 (6-26); Blood Urea Nitrogen 13 mg/dL (8-23); Calcium 7.1 mg/dL (8.6-10.3); Carbon Dioxide 23 mEq/L (23-29); Chloride 108 mEq/L (98-107); Glucose 119 mg/dL (70-105); Osmolality,Calculated 283 (280-300); Potassium 3.8 mEq/L (3.5-5.1); Sodium 136 mEq/L (136-145); eGFR For African Americans > 60 (> 60); eGFR For Non-African Americans > 60 (> 60)
[2018-01-06] MEDS: Ondansetron 4 MG/2 ML VIAL IVP SCH ×3 (03:31→11:50)
[2018-01-06] MEDS: Levalbuterol Neb 1.25 MG/3 ML IH SCH ×2 (04:17→10:26)
[2018-01-06] MEDS: *HR* Heparin 5,000 UNIT/ML VIAL SQ SCH (05:03)
--- NOTE | 2018-01-06 07:52 | Pulmonology Progress Note ---
<Haydee Ross M - Last Filed: 01/06/18 09:11> Date of Encounter: 01/06/18 Objective PUL Vital signs: Last Vital Signs Temp 98.1 F 01/06/18 08:57 Pulse 125 01/06/18 09:00 Resp 26 01/06/18 09:00 BP 115/80 01/06/18 09:00 Pulse Ox 88 01/06/18 09:00 Results - Laboratory Findings CBC and BMP: 01/06/18 02:23 01/06/18 02:23 ABG ABG pH 7.40 pH Units (7.32-7.45) 01/04/18 20:25 ABG pCO2 39 mmHg (35-45) 01/04/18 20:25 ABG pO2 86 mmHg (85-104) 01/04/18 20:25 ABG O2 Saturation 97 % (95-98) 01/04/18 20:25 PT/INR, D-dimer PT 19.7 Seconds (9.4-12.1) H 01/06/18 02:23 Abnormal lab findings: Abnormal lab results WBC 13.5 K/mcL (4.3-11.1) H 01/06/18 02:23 Hgb 12.1 g/dL (12.9-16.9) L D 01/06/18 02:23 MCH 27.8 pg (28.0-33.3) L 01/06/18 02:23 Plt Count 109 K/mcL (140-400) L 01/06/18 02:23 Neutrophils # 10.6 K/mcL (1.6-8.9) H 01/06/18 02:23 PT 19.7 Seconds (9.4-12.1) H 01/06/18 02:23 APTT 36.8 Seconds (26.0-36.0) H 12/30/17 22:40 Chloride 108 mEq/L (98-107) H 01/06/18 02:23 Glucose 119 mg/dL (70-105) H 01/06/18 02:23 Calcium 7.1 mg/dL (8.6-10.3) L 01/06/18 02:23 AST 10 Units/L (13-39) L 01/04/18 21:32 Urine Protein 100 mg/dL (Neg-Trace) H 01/04/18 23:11 Urine Glucose (UA) 100 mg/dL (Normal) H 01/04/18 23:11 Urine Blood Large (Negative) H 01/04/18 23:11 Ur Leukocyte Esterase Small (Negative) H 01/04/18 23:11 Urine Microscopic RBC TNTC per hpf (0-3) H 01/04/18 23:11 Urine Microscopic WBC 5-15 per hpf (0-3) H 01/04/18 23:11 Ur Squamous Epith Cells Many per lpf (None-Few) H 12/30/17 23:12 Urine Bacteria Moderate per hpf (None-Few) H 01/04/18 23:11 Ur Culture Indicated? YES (NO) A 01/04/18 23:11 Urine Osmolality 269 mOsm/kg (300-1090) L 12/31/17 11:00 Stool Occult Blood Positive (Negative) A 12/30/17 23:30 - Microbiology Findings Microbiology Findings: Microbiology, Last 48 Hours 01/04/18 20:41 Blood Culture - Preliminary Peripheral Venipuncture No growth. 01/04/18 20:41 Blood Culture - Preliminary Peripheral Venipuncture No growth. 01/04/18 23:11 Urine Culture - Preliminary Urine,Catheterized No significant growth. - Clinical Findings Intake & Output: Intake & Output 01/05/18 01/06/18 01/06/18 23:59 07:59 15:59 Intake Total 1350 / 1350 1350 / 1350 Output Total 700 / 700 600 / 600 350 / 350 Balance 650 / 650 750 / 750 -350 / -350 Weight 80 kg Consult Discharge Plan - Plan Referrals: [facility] [Outside] - Attending Attestation I examined this patient and my medical decision-making was reviewed with the Resident Physician. I agree with the documented findings, disposition and treatment plan as described except to the extent set forth below. Patient seen and examined. Labs, radiology, chart personally reviewed. 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 Patient will be transferred to [facility] tomorrow on Sunday. Heme: DVT prophylaxis per routine ID: Continue antibiotics and plan to de-escalation Renal; urine out put and renal funtion reviewed Endorcine: blood glucose is monitored Lines: all lines checked and no evidence of infections Skin: skin care to prevent pressure ulcers per nursing routine care <JarrettCata - Last Filed: 01/06/18 22:59> Date of Encounter: 01/06/18 Time of Encounter: 08:00 Assessment and Plan (1) Small bowel obstruction Status: Acute CT abdomen/pelvis: possible closed loop in mid abdomen; transition point inferior to iliac bifurcation; no free air. Good colostomy output today per RN. Plan 1. Clear liquids, may eventually require TPN 2. Clamp NG tube, do not remove 3. Will follow surgery's recommendations (2) Hyponatremia Status: Resolved Resolved Na 136 this morning (Na 110 on presentation) Possibly d/t recent high output from ostomy Plan Transfer out of ICU pending IV D5% 0.45%NS with 20mEq K @ 75mL/hr stopped due to resolution Treating underlying cause of high output ostomy as above Electrolyte monitoring Nephrology following, recommendations appreciated (3) Hypokalemia Status: Resolved Improved K 3.8 this morning, 2.7 on presentation. Plan Cardiac monitoring Electrolyte labs Replace PRN (4) Acute renal failure Status: Resolved Resolved Serum Cr 0.79 this morning No previous h/o renal disease or electrolyte disturbances CT abd/pelvis showed mildly dilated left renal collecting system, possibly d/t external compression by distended small bowel loops Retroperitoneal U/S showed mild pelvocaliectasis of left kidney, otherwise unremarkable kidney morphology Plan Continue management per Dr. Faith Renal function labs daily IVF as above PRN electrolyte replacement Qualifiers: Acute renal failure type: with other specified pathological lesion Qualified Code(s): N17.8 - Other acute kidney failure (5) Metabolic alkalosis Status: Resolved Resolved with IVF Plan Check electrolytes (6) DVT prophylaxis Status: Acute Subcutaneous heparin Q12H while NPO Subjective Principal diagnosis: hyponatremia, metabolic alkalosis Interval history: Seen and examined this morning, pt resting in bed. Pt endorses no complaints. Responds to questions, but falls asleep quickly--not significantly changed from yesterday. Objective PUL Vital signs: Last Vital Signs Temp 98.6 F 01/06/18 04:19 Pulse 111 01/06/18 06:00 Resp 19 01/06/18 06:00 BP 115/65 01/06/18 06:00 Pulse Ox 95 01/06/18 06:00 General appearance: no acute distress Effort: normal Cardiovascular: regular rate and rhythm Gastrointestinal: soft, non-tender Integumentary: normal Extremities: no cyanosis, no edema, no clubbing, pink and warm normal mental status, non-focal exam mood appropriate, affect normal Results - Laboratory Findings CBC and BMP: 01/06/18 02:23 01/06/18 02:23 ABG ABG pH 7.40 pH Units (7.32-7.45) 01/04/18 20:25 ABG pCO2 39 mmHg (35-45) 01/04/18 20:25 ABG pO2 86 mmHg (85-104) 01/04/18 20:25 ABG O2 Saturation 97 % (95-98) 01/04/18 20:25 PT/INR, D-dimer PT 19.7 Seconds (9.4-12.1) H 01/06/18 02:23 Abnormal lab findings: Abnormal lab results WBC 13.5 K/mcL (4.3-11.1) H 01/06/18 02:23 Hgb 12.1 g/dL (12.9-16.9) L D 01/06/18 02:23 MCH 27.8 pg (28.0-33.3) L 01/06/18 02:23 Plt Count 109 K/mcL (140-400) L 01/06/18 02:23 Neutrophils # 10.6 K/mcL (1.6-8.9) H 01/06/18 02:23 PT 19.7 Seconds (9.4-12.1) H 01/06/18 02:23 APTT 36.8 Seconds (26.0-36.0) H 12/30/17 22:40 Chloride 108 mEq/L (98-107) H 01/06/18 02:23 Glucose 119 mg/dL (70-105) H 01/06/18 02:23 Calcium 7.1 mg/dL (8.6-10.3) L 01/06/18 02:23 AST 10 Units/L (13-39) L 01/04/18 21:32 Urine Protein 100 mg/dL (Neg-Trace) H 01/04/18 23:11 Urine Glucose (UA) 100 mg/dL (Normal) H 01/04/18 23:11 Urine Blood Large (Negative) H 01/04/18 23:11 Ur Leukocyte Esterase Small (Negative) H 01/04/18 23:11 Urine Microscopic RBC TNTC per hpf (0-3) H 01/04/18 23:11 Urine Microscopic WBC 5-15 per hpf (0-3) H 01/04/18 23:11 Ur Squamous Epith Cells Many per lpf (None-Few) H 12/30/17 23:12 Urine Bacteria Moderate per hpf (None-Few) H 01/04/18 23:11 Ur Culture Indicated? YES (NO) A 01/04/18 23:11 Urine Osmolality 269 mOsm/kg (300-1090) L 12/31/17 11:00 Stool Occult Blood Positive (Negative) A 12/30/17 23:30 - Microbiology Findings Microbiology Findings: Microbiology, Last 48 Hours 01/04/18 23:11 Urine Culture - Preliminary Urine,Catheterized No significant growth. - Clinical Findings Intake & Output: Intake & Output 01/05/18 01/05/18 01/06/18 15:59 23:59 07:59 Intake Total 1100 / 1100 1350 / 1350 1250 / 1250 Output Total 1775 / 1775 700 / 700 600 / 600 Balance -675 / -675 650 / 650 650 / 650 Weight 80 kg - VTE Documentation of Mechanical Device: Intermittent pneumatic compression device
[2018-01-06] MEDS: Gabapentin 300 MG CAPSULE PO SCH (08:51)
[2018-01-06] MEDS: Pantoprazole 40 MG VIAL IVP SCH (08:51)
[2018-01-06] MEDS: Famotidine 20 MG TABLET PO SCH (08:52)
[2018-01-06] MEDS: Cyanocobalamin (B-12) 1,000 MCG TABLET PO SCH (08:52)
[2018-01-06] MEDS: Piperacillin/Tazobactam 3.375 GM in 0.9 % Sodium Chloride Mini Bag 100 ML IVPB SCH (08:52)
[2018-01-06] MEDS: ZINC SULFATE 50 MG PO SCH (08:53)
[2018-01-06] MEDS: Budesonide/Formoterol 80/4.5 MDI IH SCH (10:28)
[2018-01-06 11:53] VITALS: BP 100/61
[2018-01-06] MEDS ORDERED: Aminoglycoside Consult 1 EACH MC ONE (13:54)
--- NOTE | 2018-01-07 08:06 | Electrocardiograph Report ---
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
--- NOTE | 2018-01-07 15:24 | Electrocardiograph Report ---
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
--- NOTE | 2018-01-07 17:40 | Discharge Summary ---
<Cata Farias - Last Filed: 01/07/18 17:36> Orders not resulted at time of discharge: Pending orders 01/04/18 20:41 Culture,Blood [BC] Stat Culture,Blood,Additional [BC] Stat 01/04/18 23:11 XR chest 1V portable [XR] Stat Date of Encounter: 01/07/18 Time of Encounter: 16:00 - Discharge Diagnosis (1) Small bowel obstruction Priority: Primary Status: Acute (2) Hyponatremia Priority: Secondary Status: Resolved (3) Hypokalemia Priority: Secondary Status: Resolved (4) Acute renal failure Priority: Secondary Status: Resolved Qualifiers: Acute renal failure type: with other specified pathological lesion Qualified Code(s): N17.8 - Other acute kidney failure (5) Metabolic alkalosis Priority: Secondary Status: Resolved (6) DVT prophylaxis Priority: Secondary Status: Acute - Discharge Medications Home Medications: Acetaminophen [Tylenol] 1,000 mg PO TID PRN 01/16/17 [History] Albuterol Sulfate [Albuterol Inhaler] 2 puff IH QID PRN 01/16/17 [History] Aloe Vera/Collagen [Aloe [place] Cleansing Foam] 1 appl TP DAILY 01/16/17 [History ] Ascorbate Calcium [Vitamin C] 500 mg PO DAILY 01/16/17 [History] Docusate [Colace] 100 mg PO BID 01/16/17 [History] Furosemide [Lasix] 40 mg PO DAILY 01/16/17 [History] Gabapentin [Neurontin] 600 mg PO TID 01/16/17 [History] Metoprolol [Lopressor] 50 mg PO BID 01/16/17 [History] Multivitamin [Multi-Day Vitamins] 1 each PO DAILY 01/16/17 [History] Rivaroxaban [Xarelto] 20 mg PO DAILY 01/16/17 [History] Simvastatin [Zocor] 20 mg PO HS 01/16/17 [History] Sod Chloride/B-6/Zinc Acet/Ca [Wound Cleanser] 3 - 5 spray IR DAILY 01/16/17 [ History] Vit C/E/Zn/Coppr/Lutein/Zeaxan [Preservision Areds 2 Softgel] 1 cap PO BID 01/16 [History] raNITIdine HCl [Zantac] 150 mg PO BID 01/16/17 [History] Albuterol Neb [Proventil Neb] 2.5 mg IH Q4HR 12/31/17 [History] Budesonide/Formoterol 80/4.5 [Symbicort 80/4.5] 1 puff IH BID 12/31/17 [History ] Buprenorphine [Butrans] 1 patch TD Q7D 12/31/17 [History] Cyanocobalamin (Vitamin B-12) [Vitamin B-12] 1,000 mcg SL DAILY 12/31/17 [ History] Diclofenac Sodium [Voltaren] 1 appl TP QID 12/31/17 [History] Lactobacillus Acidophilus [Acidophilus Lactobacillus] 1 cap PO DAILY 12/31/17 [ History] Nystatin POWDER [Nystop] 1 appl TP BID 12/31/17 [History] Tramadol HCl [Ultram] 50 mg PO Q6H PRN 12/31/17 [History] Triamcinolone Acet 0.1% CRM [Kenalog] 1 appl TP BID 12/31/17 [History] Zinc Sulfate [Zinc-15] 50 mg PO BID 12/31/17 [History] Allergies/Adverse Reactions: 3 Allergy/AdvReac Type Severity Reaction Status Date / Time latex AdvReac See Verified 01/16/17 21:16 Comments Labs on day of discharge: Preliminary micro results at discharge 01/04/18 20:41 Blood Culture - Preliminary Peripheral Venipuncture No growth. 01/04/18 20:41 Blood Culture - Preliminary Peripheral Venipuncture No growth. - Impressions ITS Impressions Retroperitoneum Ultrasound 12/31/17 17:00 IMPRESSION: Mild pelvocaliectasis left kidney- of un certain clinical significance. Otherwise morphologically normal kidneys. Nondiagnostic evaluation of urinary bladder due to presence of unclamped Echeverria catheter. D/ / Logan Pacheco MD / Logan Pacheco MD Interpreting Provider: Logan Pacheco MD Abdomen/Pelvis CT 01/02/18 17:36 IMPRESSION: 1. Ongoing focal dilation of a small bowel loop in the left lower quadrant, although distention appears improved in comparison to prior exam. More proximal distention of the stomach and duodenum has resolved. 2. Nonspecific right adrenal nodule. 3. Cholelithiasis without evidence of cholecystitis. 4. Nonspecific fat stranding adjacent to the bladder. Consider correlation for cystitis. D/ / 01/02/2018 19:29:08 Leonardo Gaffney MD / benedicto Interpreting Provider: Leonardo Gaffney MD Chest X-Ray 01/04/18 21:26 IMPRESSION: Borderline pulmonary vascular congestion. Otherwise no acute abnormality. D/ / Austin Cherry MD / Austin Cherry MD Interpreting Provider: Austin Cherry MD Date of admission: 12/31/17 08:24 [facility] Consults: 12/31/17 08:43 Consult to Sample Cutter [CONS] Routine Reason for SW Consult: [facility] 01/01/18 10:28 Consult to Infectious Diseases [CONS] Routine Consulting Provider: Infectious Disease [place] Reason for Consult: mucocutaneous fistula, abdomen Time Notified: 10:33 Call Completed: No Consult to Wound Care [CONS] Routine Reason for Consult: mucocutaneous fistula, abdomen Time Notified: 10:46 Call Completed: Yes 01/01/18 11:44 Consult to Surgery [CONS] Routine Consulting Provider: Surgery [facility] Reason for Consult: possible small bowel obstruction Time Notified: 12:12 Call Completed: Yes 01/02/18 12:34 Consult to Psychiatry [CONS] Routine Consulting Provider: Psychiatry Ivon Reason for Consult: capacity evaluation Call Completed: Yes 01/03/18 16:06 Consult to Occupational Therapy [CONS] Routine Comment: Evaluate, develop and implement POC Reason for Consult: discharge Does patient have active BEDREST order?: No Is patient medically & hemodynamically stable?: Yes Patient assessed for mobility or mobilized this visit?: Yes Consult to Physical Therapy [CONS] Routine Comment: Evaluate, develop and implement POC Reason for Consult: weakness Does patient have active BEDREST order?: No Is patient medically & hemodynamically stable?: Yes Patient assessed for mobility or mobilized this visit?: Yes 01/05/18 06:13 Consult to Critical Care [CONS] Routine Consulting Provider: Pulcesar Gonzalezt Marcelina & Ang Del Valle Reason for Consult: Hypotension Sepsis. Patient is in ICU. Call Completed: Yes Discharging clinician: Cata Farias Anticipated date of discharge: 01/07/18 - Patient Status Disposition: Left Against Medical Advice Condition: Fair Functional capacity at discharge: uses cane/walker - Discharge Instructions Follow Up With: [facility] [Outside] - Diet and Activity Activity: ambulate only with your walker, increase activity as tolerated, resume usual activities as tolerated, wear oxygen at all times Diet: low fat, low cholesterol - Hospital Course Hospital course: Mr. Wolf is a 67 year old male with h/o alcohol abuse, tobacco abuse, CAD, [place] , A fib, COPD, bowel obstruction s/p ostomy about 3 years ago presented to ED with c/o abdominal pain, nausea, vomiting, increased ostomy output intermittently. Evidence for small bowel obstruction seen on CT abdomen/pelvis , lactic acid was within normal limits and not suggestive of ischemic bowel, patient is known to Dr. Jung. Hyponatremia and hypokalemia present on arrival to ICU and were corrected. He also presented with acute renal failure that quickly corrected with IV fluids, patient is known to Dr. Faith. Consultation with general surgeon, Dr. Jung, who recommended transfer to tertiary care center like [facility] for surgery because patient is too high risk. He was transferred out of ICU to the floor in stable condition. Patient refused transfer to [facility] or other tertiary center despite knowing he may need surgery; psychiatry consulted to determine his capacity to make decisions. Per psychiatry the patient cognitively intact with capacity and full understanding of the issues to make his own medical decisions. He was moved back to ICU after desaturation event with concerns for sepsis and further monitoring. Potential transfer/discharge deferred to [facility] when the [facility] could [facility]. Pt wanted to leave against medical advice before [facility] could be contacted. Associated risks , including , were discussed with the patient multiple times. However patient was persistent and his desire to leave AMA stating that he was the one having surgery and "does not need to be here" and because he "does not have these problems at home." I discussed the associated risks, including , with leaving at this juncture in his treatment and he verbalized his understanding of associated risks, including , if he left AMA and pt remained adament in his decision to leave. AMA paperwork was brought to pt's room and was signed by the pt, myself, and his nurse. - Time Spent with Patient Total time spent providing and/or coordinating discharge services: Physical Examination General appearance: no acute distress, alert ENT: oropharynx moist Neck: supple Effort: normal Auscultation: bilateral: clear Cardiovascular: regular rate and rhythm Gastrointestinal: normoactive bowel sounds, soft, non-tender, non-distended Integumentary: normal Extremities: no cyanosis, no edema, no clubbing, pink and warm normal mental status, non-focal exam, pupils equal and round, motor strength normal and symmetric - VTE Documentation of Mechanical Device: Intermittent pneumatic compression device <Haydee Ross - Last Filed: 01/08/18 07:36> Orders not resulted at time of discharge: Pending orders 01/04/18 20:41 Culture,Blood [BC] Stat Culture,Blood,Additional [BC] Stat 01/04/18 23:11 XR chest 1V portable [XR] Stat Date of Encounter: 01/08/18 Labs on day of discharge: Preliminary micro results at discharge 01/04/18 20:41 Blood Culture - Preliminary Peripheral Venipuncture No growth. 01/04/18 20:41 Blood Culture - Preliminary Peripheral Venipuncture No growth. - Impressions ITS Impressions Retroperitoneum Ultrasound 12/31/17 17:00 IMPRESSION: Mild pelvocaliectasis left kidney- of un certain clinical significance. Otherwise morphologically normal kidneys. Nondiagnostic evaluation of urinary bladder due to presence of unclamped Echeverria catheter. D/ / Logan Pacheco MD / Logan Pacheco MD Interpreting Provider: Logan Pacheco MD Abdomen/Pelvis CT 01/02/18 17:36 IMPRESSION: 1. Ongoing focal dilation of a small bowel loop in the left lower quadrant, although distention appears improved in comparison to prior exam. More proximal distention of the stomach and duodenum has resolved. 2. Nonspecific right adrenal nodule. 3. Cholelithiasis without evidence of cholecystitis. 4. Nonspecific fat stranding adjacent to the bladder. Consider correlation for cystitis. D/ / 01/02/2018 19:29:08 Leonardo Gaffney MD / benedicto Interpreting Provider: Leonardo Gaffney MD Chest X-Ray 01/04/18 21:26 IMPRESSION: Borderline pulmonary vascular congestion. Otherwise no acute abnormality. D/ / Austin Cherry MD / Austin Cherry MD Interpreting Provider: Austin Cherry MD Date of admission: 12/31/17 08:24 Primary care physician: [facility]CP [facility] Consults: 12/31/17 08:43 Consult to Sample Cutter [CONS] Routine Reason for SW Consult: [facility] PT 01/01/18 10:28 Consult to Infectious Diseases [CONS] Routine Consulting Provider: Infectious Disease Ivon Reason for Consult: mucocutaneous fistula, abdomen Time Notified: 10:33 Call Completed: No Consult to Wound Care [CONS] Routine Reason for Consult: mucocutaneous fistula, abdomen Time Notified: 10:46 Call Completed: Yes 01/01/18 11:44 Consult to Surgery [CONS] Routine Consulting Provider: Surgery [facility] - [facility] Reason for Consult: possible small bowel obstruction Time Notified: 12:12 Call Completed: Yes 01/02/18 12:34 Consult to Psychiatry [CONS] Routine Consulting Provider: Psychiatry Ivon Reason for Consult: capacity evaluation Call Completed: Yes 01/03/18 16:06 Consult to Occupational Therapy [CONS] Routine Comment: Evaluate, develop and implement POC Reason for Consult: discharge Does patient have active BEDREST order?: No Is patient medically & hemodynamically stable?: Yes Patient assessed for mobility or mobilized this visit?: Yes Consult to Physical Therapy [CONS] Routine Comment: Evaluate, develop and implement POC Reason for Consult: weakness Does patient have active BEDREST order?: No Is patient medically & hemodynamically stable?: Yes Patient assessed for mobility or mobilized this visit?: Yes 01/05/18 06:13 Consult to Critical Care [CONS] Routine Consulting Provider: Pulcesar [facility] Ivon Reason for Consult: Hypotension Sepsis. Patient is in ICU. Call Completed: Yes - Hospital Course Hospital course: Mr. Wolf is a 67 year old male - Time Spent with Patient Total time spent providing and/or coordinating discharge services: - Attending Attestation This was signed on 01/08/2018. Patient signed AMA on 01/06/2018 I examined this patient and my medical decision-making was reviewed with the Resident Physician. I agree with the documented findings, disposition and treatment plan as described except to the extent set forth below. Patient seen and examined. Labs, radiology, chart personally reviewed. Agree with resident's history and physical, assessment, plan with following comments: CAN CRIMPER: Patient follows commands, Pulmonary: Acceptable oxygenation and ventilation Cardiovascular: stable Patient has multiple problems and he was going to be transferred to [facility] for further management, however he decided to signed against medical advice knowing his condition is serious and may if it will not get treated. Surgeon is aware.
== END 2018-01-06 13:55 | disposition left against medical advice (07) | DRG 388 ==
LOC: EMEROO 22:28 → SUATTDRO 12-31 08:24 → ICNU 12-31 08:24 → 3ANU 01-01 17:22 → ICNU 01-04 22:12
PROVIDERS: ADMIT Internal Medicine Pulmonary Disease; ATTEND Hospitalist